=== PATIENT | male | born 1980 | race Two or more races ===

== ENCOUNTER 2020-03-07 11:59 | Inpatient (IN) | payer MEDICAID ==
[~2020-03-07] VITALS: Ht 167.6 cm; Wt 87.9 kg
[2020-03-07] MEDS ORDERED: Ketorolac 30mg Inj IV ONE (12:30)
[2020-03-07 12:53] LABS: BASOPHILS % (AUTO) 1.1 % (0.0-2.0); EOSINOPHILS % (AUTO) 0.4 % (0.0-3.0); HEMATOCRIT 42.1 % (42.0-52.0); HEMOGLOBIN 15.2 G/DL (14.2-18.0); LYMPHOCYTES % (AUTO) 17.7 % (20.0-45.0); MEAN CORPUSCULAR VOLUME 95 FL (80-99); MONOCYTES % (AUTO) 9.8 % (1.0-10.0); PLATELET COUNT 121 K/UL (150-450); RED BLOOD COUNT 4.45 M/UL (4.70-6.10); RED CELL DISTRIBUTION WIDTH 12.6 % (11.6-14.8); WHITE BLOOD COUNT 10.7 K/UL (4.8-10.8)
[2020-03-07 13:00] LABS: ANION GAP 7 mmol/L (5-15); BLOOD UREA NITROGEN 6 mg/dL (7-18); CALCIUM 7.7 MG/DL (8.5-10.1); CARBON DIOXIDE 24 MMOL/L (21-32); CHLORIDE 104 MMOL/L (98-107); CREATININE 0.8 MG/DL (0.55-1.30); POTASSIUM 3.7 MMOL/L (3.5-5.1); SODIUM 135 MMOL/L (136-145)
[2020-03-07 13:09] VITALS: BP 133/85
[2020-03-07 13:16] LABS: ALANINE AMINOTRANSFERASE 204 U/L (12-78); ALBUMIN 2.5 G/DL (3.4-5.0); ALBUMIN/GLOBULIN RATIO 0.5 (1.0-2.7); ALKALINE PHOSPHATASE 220 U/L (46-116); ASPARTATE AMINO TRANSFERASE 272 U/L (15-37); BILIRUBIN,TOTAL 1.4 MG/DL (0.2-1.0)
--- NOTE | 2020-03-07 13:16 | Diagnostic Imaging Report ---
EXAM: XR Chest, 1 View CLINICAL HISTORY: ABD PAIN TECHNIQUE: Frontal view of the chest. COMPARISON: No relevant prior studies available. FINDINGS: Lungs: Patchy bilateral airspace opacities, worse in the right lung. Pleural space: Unremarkable. No pneumothorax. Heart: Prominent cardiac silhouette. Mediastinum: Unremarkable. Bones/joints: Unremarkable. IMPRESSION: Patchy bilateral airspace opacities, worse in the right lung. Worrisome for pneumonia, consider COVID.
[2020-03-07 13:18] LABS: BILIRUBIN,DIRECT 0.5 MG/DL (0.0-0.3)
[2020-03-07] MEDS ORDERED: cefTRIAXone 1 GM in NS 55 ML IV ONE (13:30)
[2020-03-07] MEDS ORDERED: Azithromycin 500 MG in NS 275 ML IVPB ONE (13:30)
--- NOTE | 2020-03-07 13:50 | Emergency Room Report ---
History of Present Illness General Chief Complaint: Upper Respiratory Illness Source: Patient Present Illness HPI 39-year-old male presents the ED for evaluation. States that he has been coughing for the last 2 weeks. States he got tested positive for COVID a few days ago. States he has been since then having increased body aches and cough. Vomited once. Denies shortness of breath. Denies chest pain. No other aggravating relieving factors. Denies any other associated symptoms Allergies: Coded Allergies: No Known Allergies (Unverified , 03/07/20) COVID-19 Screening Contact w/high risk pt: Yes Experienced COVID-19 symptoms?: Yes COVID-19 Testing performed PSYCH THERAPIST: Yes COVID-19 Screening: Positive COVID-19 COVID-19 Testing Source: nasal Patient History Past Medical History: DM Past Surgical History: none Pertinent Family History: none Social History: Denies: smoking, alcohol use, drug use Immunizations: UTD Reviewed Nursing Documentation: PMH: Agreed; PSxH: Agreed Nursing Documentation-PMH Hx Diabetes: Yes Review of Systems All Other Systems: negative except mentioned in HPI Physical Exam Vital Signs Date Time Temp Pulse Resp B/P (MAP) Pulse Ox O2 Delivery O2 Flow Rate FiO2 03/07/20 12:13 98.2 94 18 139/70 (93) 98 Room Air Sp02 EP Interpretation: reviewed, normal General Appearance: no apparent distress, alert, GCS 15, non-toxic Head: normocephalic, atraumatic Eyes: bilateral eye normal inspection, bilateral eye PERRL ENT: hearing grossly normal, normal pharynx, no angioedema, normal voice Neck: full range of motion, supple/symm/no masses Respiratory: chest non-tender, normal breath sounds, decreased breath sounds, crackles, speaking full sentences Cardiovascular #1: regular rate, rhythm, no edema Cardiovascular #2: 2+ carotid (R), 2+ carotid (L), 2+ radial (R), 2+ radial (L), 2+ dorsalis pedis (R), 2+ dorsalis pedis (L) Gastrointestinal: normal bowel sounds, non tender, soft, non-distended, no guarding, no rebound Rectal: deferred Genitourinary: normal inspection, no CVA tenderness Musculoskeletal: back normal, normal range of motion, gait/station normal, non- tender Neurologic: alert, motor strength/tone normal, oriented x3, sensory intact, responsive, speech normal Psychiatric: judgement/insight normal, memory normal, mood/affect normal, no suicidal/homicidal ideation Reflexes: 3+ bicep (R), 3+ bicep (L), 3+ tricep (R), 3+ tricep (L), 3+ knee (R), 3+ knee (L) Skin: no rash Lymphatic: no adenopathy Medical Decision Making Diagnostic Impression: Primary Impression: Pneumonia due to COVID-19 virus ER Course Hospital Course 39-year-old male presents with cough, vomiting. Recent COVID diagnosis Differential diagnoses include: Pneumonia, CHF exacerbation, pneumothorax, fluid overload Clinical course Patient placed on stretcher. Isolation. I wore full PPE. On monitoring and evaluation advisor with stable vitals. After initial history and physical, I ordered labs, IV fluids, Labs - no leukocytosis, hemoglobin/hematocrit stable, electrolytes okay, LFTs elevated CXR -acute bilateral opacities consistent with COVID pneumonia Inflammatory markers pending. D-dimer elevated Given antibiotics. Given Lovenox. Case discussed with Dr. Brown and he agreed to the patient to his service for further care and support I feel this is a highly complex case requiring extensive working including EKG/Rhythm strip, Xray/CT/US, Blood/urine lab work, repeat exams while in ED, and administration of strong opiates/narcotics for pain control, admission to hospital or close patient follow up. Diagnosis - COVID pneumonia Patient admitted to floor in serious condition Laboratory Tests Test 03/07/20 12:11 White Blood Count 10.7 K/UL (4.8-10.8) Red Blood Count 4.45 M/UL (4.70-6.10) L Hemoglobin 15.2 G/DL (14.2-18.0) Hematocrit 42.1 % (42.0-52.0) Mean Corpuscular Volume 95 FL (80-99) Mean Corpuscular Hemoglobin 34.1 PG (27.0-31.0) H Mean Corpuscular Hemoglobin Concent 36.0 G/DL (32.0-36.0) Red Cell Distribution Width 12.6 % (11.6-14.8) Platelet Count 121 K/UL (150-450) L Mean Platelet Volume 10.5 FL (6.5-10.1) H Neutrophils (%) (Auto) 71.0 % (45.0-75.0) Lymphocytes (%) (Auto) 17.7 % (20.0-45.0) L Monocytes (%) (Auto) 9.8 % (1.0-10.0) Eosinophils (%) (Auto) 0.4 % (0.0-3.0) Basophils (%) (Auto) 1.1 % (0.0-2.0) Sodium Level 135 MMOL/L (136-145) L Potassium Level 3.7 MMOL/L (3.5-5.1) Chloride Level 104 MMOL/L (98-107) Carbon Dioxide Level 24 MMOL/L (21-32) Anion Gap 7 mmol/L (5-15) Blood Urea Nitrogen 6 mg/dL (7-18) L Creatinine 0.8 MG/DL (0.55-1.30) Estimat Glomerular Filtration Rate > 60 mL/min (>60) Glucose Level 221 MG/DL (74-106) H Calcium Level 7.7 MG/DL (8.5-10.1) L Total Bilirubin 1.4 MG/DL (0.2-1.0) H Direct Bilirubin 0.5 MG/DL (0.0-0.3) H Aspartate Amino Transf (AST/SGOT) 272 U/L (15-37) H Alanine Aminotransferase (ALT/SGPT) 204 U/L (12-78) H Alkaline Phosphatase 220 U/L (46-116) H Total Protein 7.6 G/DL (6.4-8.2) Albumin 2.5 G/DL (3.4-5.0) L Globulin 5.1 g/dL Albumin/Globulin Ratio 0.5 (1.0-2.7) L Lipase 376 U/L (73-393) Chest X-Ray Diagnostic Results Chest X-Ray Diagnostic Results : Chest X-Ray Ordered: Yes # of Views/Limited/Complete: 1 View EP Interpretation: Yes Interpretation: no effusion, no pneumothorax, other - Lateral patchy opacities Impression: Other - COVID pneumonia Electronically Signed by: Electronically signed by Carlos Whitten MD Last Vital Signs Date Time Temp Pulse Resp B/P (MAP) Pulse Ox O2 Delivery O2 Flow Rate FiO2 03/07/20 13:10 76 18 Room Air 03/07/20 13:09 98.3 133/85 96 Status: improved Disposition: ADMITTED INPATIENT Condition: Serious Scripts No Active Prescriptions or Reported Meds Referrals: NOT CHOSEN IPA/,REFERRING (PCP) Carlos Whitten MD Mar 07, 2020 13:50
[2020-03-07 14:12] LABS: INR 1.3 (0.9-1.1)
[2020-03-07] MEDS ORDERED: Enoxaparin 40mg Inj SUBQ ONE (14:30)
[2020-03-07] MEDS ORDERED: dexAMETHasone 10mg/ml Inj IV ONE (14:45)
[2020-03-07 15:10] VITALS: BP 142/88
[2020-03-07 15:27] VITALS: BP 142/89
[2020-03-07 16:50] VITALS: BP 140/90
[2020-03-07] MEDS ORDERED: Acetaminophen 500mg (ES) tab ORAL PRN ×2 (17:00)
[2020-03-07 20:00] VITALS: BP 143/79
[2020-03-08] VITALS: BP 155/94
[2020-03-08 04:00] VITALS: BP 148/82
[2020-03-08 05:18] LABS: BASOPHILS % (AUTO) 1.4 % (0.0-2.0); HEMATOCRIT 40.3 % (42.0-52.0); HEMOGLOBIN 14.3 G/DL (14.2-18.0); LYMPHOCYTES % (AUTO) 9.8 % (20.0-45.0); MEAN CORPUSCULAR VOLUME 95 FL (80-99); MONOCYTES % (AUTO) 6.7 % (1.0-10.0); NEUTROPHILS % (AUTO) 82.1 % (45.0-75.0); PLATELET COUNT 127 K/UL (150-450); RED BLOOD COUNT 4.26 M/UL (4.70-6.10); RED CELL DISTRIBUTION WIDTH 12.6 % (11.6-14.8); WHITE BLOOD COUNT 7.1 K/UL (4.8-10.8)
[2020-03-08 05:41] LABS: ALANINE AMINOTRANSFERASE 140 U/L (12-78); ALBUMIN/GLOBULIN RATIO 0.5 (1.0-2.7); ALKALINE PHOSPHATASE 174 U/L (46-116); ANION GAP 7 mmol/L (5-15); ASPARTATE AMINO TRANSFERASE 159 U/L (15-37); BILIRUBIN,TOTAL 1.2 MG/DL (0.2-1.0); BLOOD UREA NITROGEN 9 mg/dL (7-18); CALCIUM 7.8 MG/DL (8.5-10.1); CARBON DIOXIDE 24 MMOL/L (21-32); CHLORIDE 104 MMOL/L (98-107); CREATININE 0.9 MG/DL (0.55-1.30); POTASSIUM 4.2 MMOL/L (3.5-5.1); SODIUM 135 MMOL/L (136-145)
[2020-03-08 05:45] LABS: BILIRUBIN,DIRECT 0.5 MG/DL (0.0-0.3)
[2020-03-08 08:00] VITALS: BP 132/81
--- NOTE | 2020-03-08 11:15 | Consultation ---
DATE OF CONSULTATION: 03/08/2020 PULMONARY CONSULTATION HISTORY OF PRESENT ILLNESS: This is a 39-year-old male who is known to be COVID positive tested as an outpatient several days ago. He presented to the hospital with cough, body aches and shortness of breath. He also had emesis. REVIEW OF SYSTEMS: Denies any headaches, hematemesis, melena, hematochezia, night sweats, or weight loss. PAST SURGICAL HISTORY: None. PAST MEDICAL HISTORY: None. SOCIAL HISTORY: Denies alcohol or tobacco usage. PHYSICAL EXAMINATION: GENERAL: Reveals a 39-year-old male. VITAL SIGNS: Blood pressure 130/80, heart rate 74, respiratory rate 18, O2 saturation 94% on room air. HEENT: Unremarkable. CHEST: Clear breath sounds bilaterally. ABDOMEN: Soft. EXTREMITIES: There is no edema. NEUROLOGIC: Nonfocal. LABORATORY DATA: Rapid COVID testing is positive. IMAGING STUDIES: X-ray chest was obtained yesterday which shows patchy bilateral airspace disease. IMPRESSION: COVID-19 pneumonia. DISCUSSION: Agree with admission and care. The patient is a candidate for Decadron. He received a single does yesterday. We will start him on oral Decadron today. Defer choice of Remdesivir and/or steroids to ID. We will follow carefully. Stanley Giraldo M.D. DR: Lynn JOB#: [id number] CC:
[2020-03-08 11:41] VITALS: BP 139/85
--- NOTE | 2020-03-08 14:15 | Consultation ---
DATE OF CONSULTATION: 03/08/2020 INFECTIOUS DISEASES CONSULTATION CONSULTING PHYSICIAN: Austyn Shields MD PRIMARY ATTENDING PHYSICIAN: Ricki Brown MD REASON FOR CONSULTATION: COVID-19 pneumonia. HISTORY OF PRESENT ILLNESS: The patient is a 39-year-old male admitted yesterday because of coughing, body ache. Symptoms started one week ago, was diagnosed with COVID-19 as outpatient but the symptoms become worse and the patient came to the hospital. PAST MEDICAL HISTORY: Diabetes mellitus. ALLERGIES: No known drug allergies. MEDICATIONS: Dexamethasone, Zofran, sodium chloride, Tylenol. SOCIAL HISTORY: . Originally from [facility], works in restaurants. Denies drug abuse. Denies smoking. Drinks occasionally. REVIEW OF SYSTEMS: No fever. No chills. Has cough that occasionally is productive. No chest pain. No nausea. No vomiting. No shortness of breath. No dysuria. PHYSICAL EXAMINATION: VITAL SIGNS: Temperature 97.5, pulse 80, blood pressure 139/85. GENERAL APPEARANCE: Seems to be overweight. HEAD AND NECK: Garza-[place] Ii conjunctiva. HEART: Normal rate. LUNGS: Clear. ABDOMEN: Soft and nontender. EXTREMITIES: No edema. NEUROLOGIC: Awake, alert, oriented x3. LABORATORY AND DIAGNOSTIC DATA: WBC 7.1, hemoglobin 14.3, hematocrit 40.3, platelets 127. Lymphocyte count is 9.8. Sodium 135, potassium 4.2, chloride 104, bicarb 24, BUN 9, creatinine 0.9, glucose is 249. Bilirubin is 1.2, AST 159, ALT 140, alkaline phosphatase 74. Albumin is 2. COVID-19 test positive. Chest x-ray, patchy bilateral airspace opacities worse in the right lung. IMPRESSION: COVID-19 pneumonia. The patient currently is on room air and oxygen and has good O2 saturation, has lymphopenia, elevated transaminase, and diabetes mellitus. RECOMMENDATION: I agree with continuing of dexamethasone. The patient is not eligible for treatment with Remdesivir, needs better control of diabetes mellitus. At the end of my exam, I thank Dr. Brown, for involving me in the care of this patient. Austyn Shields M.D. DR: Brenda JOB#: [id number] CC:
[2020-03-08 16:00] VITALS: BP 129/87
[2020-03-08 20:22] VITALS: BP 153/86
--- NOTE | 2020-03-08 22:54 | General Progress Note ---
Subjective Allergies: Coded Allergies: No Known Allergies (Unverified , 03/07/20) Objective Last 24 Hour Vital Signs Date Time Temp Pulse Resp B/P (MAP) Pulse Ox O2 Delivery O2 Flow Rate FiO2 03/08/20 20:45 Room Air 03/08/20 20:22 96.8 61 16 153/86 (108) 95 03/08/20 16:00 97.5 71 20 129/87 (101) 94 03/08/20 11:41 97.5 80 20 139/85 (103) 94 03/08/20 09:00 Room Air 03/08/20 08:00 97.7 71 18 132/81 (98) 94 03/08/20 04:00 98.6 78 20 148/82 (104) 94 03/08/20 00:00 97.9 76 20 155/94 (114) 94 Intake and Output 03/07/20 03/08/20 19:00 07:00 # Voids 2 Laboratory Tests 03/08/20 05:00: White Blood Count 7.1, Red Blood Count 4.26L, Hemoglobin 14.3, Hematocrit 40.3L, Mean Corpuscular Volume 95, Mean Corpuscular Hemoglobin 33.6H, Mean Corpuscular Hemoglobin Concent 35.5, Red Cell Distribution Width 12.6, Platelet Count 127L, Mean Platelet Volume 12.9H, Neutrophils (%) (Auto) 82.1H, Lymphocytes (%) (Auto) 9.8L, Monocytes (%) (Auto) 6.7, Eosinophils (%) (Auto) 0.0, Basophils (%) (Auto) 1.4, Sodium Level 135L, Potassium Level 4.2, Chloride Level 104, Carbon Dioxide Level 24, Anion Gap 7, Blood Urea Nitrogen 9, Creatinine 0.9, Estimat Glomerular Filtration Rate > 60, Glucose Level 249H, Calcium Level 7.8L, Total Bilirubin 1.2H, Direct Bilirubin 0.5H, Aspartate Amino Transf (AST/SGOT) 159H, Alanine Aminotransferase (ALT/SGPT) 140H, Alkaline Phosphatase 174H, Total Protein 6.0L, Albumin 2.0L, Globulin 4.0, Albumin/Globulin Ratio 0.5L Height (Feet): 5 Height (Inches): 6.00 Weight (Pounds): 180 Assessment/Plan Assessment/Plan: Assessment - COVID PNA - Abnormal LFT, now lower, likely due to COVID Recommendations - follow LFT - check hepatitis serologies - steroids and Abx per ID Thank you MD Brooklyn Gallegos Payman MD Mar 08, 2020 22:54
--- NOTE | 2020-03-08 23:30 | History and Physical Report ---
DATE OF ADMISSION: 03/07/2020 HISTORY OF PRESENT ILLNESS: The patient denies shortness of breath. Denies chest pain. Denies nausea, vomiting, diarrhea, fever, chills, is admitted for COVID positive pneumonia and elevated LFTs. The patient feels weak. Denies nausea, vomiting, or diarrhea. PAST MEDICAL HISTORY: None other than GERD. PAST SURGICAL HISTORY: None. ALLERGIES: No known allergies. MEDICATIONS: None. FAMILY HISTORY: Noncontributory. SOCIAL HISTORY: Denies history of smoking. No history of alcohol or illicit drugs. REVIEW OF SYSTEMS: HEENT: Denies headache. RESPIRATORY: Denies shortness of breath. Does have cough. CARDIOVASCULAR: Denies chest pain or orthopnea. GASTROINTESTINAL: Denies nausea, vomiting, or diarrhea. EXTREMITIES: Denies pain. CENTRAL NERVOUS SYSTEM: Denies change in speech pattern. PHYSICAL EXAMINATION: VITAL SIGNS: Temperature is 98.6, pulse is 78, blood pressure 148/82. HEENT: PERRLA. NECK: Supple. No lymphadenopathy. CHEST: Clear to auscultation. CARDIOVASCULAR: Regular rate and rhythm. No murmurs or extra sounds. GASTROINTESTINAL: Soft, nontender, nondistended. No organomegaly. EXTREMITIES: No edema. Moves all four extremities. NEUROLOGIC: Sensory intact to light touch. Reflexes equal on both sides. Moves all four extremities. ASSESSMENT/PLAN: COVID positive pneumonia, elevated LFTs, p.r.n., oxygen if needed. I have asked Dr. Stanley Giraldo, Dr. Austyn Shields, Dr. Barahona see the patient for the above-mentioned abnormalities and antibiotics if any per Dr. Austyn Shields. Ricki Brown M.D. DR: DANIEL JOB#: [id number] CC:
[2020-03-09 03:57] VITALS: BP 136/83
[2020-03-09 07:22] LABS: ALANINE AMINOTRANSFERASE 127 U/L (12-78); ALBUMIN 2.2 G/DL (3.4-5.0); ALKALINE PHOSPHATASE 188 U/L (46-116); ASPARTATE AMINO TRANSFERASE 94 U/L (15-37); BILIRUBIN,DIRECT 0.4 MG/DL (0.0-0.3)
[2020-03-09 08:00] VITALS: BP 146/79
--- NOTE | 2020-03-09 09:51 | Pulmonology Progress Note ---
Subjective Interval Events: None new Constitutional: Reports: no symptoms HEENT: Repors: no symptoms Respiratory: Reports: no symptoms Cardiovascular: Reports: no symptoms Gastrointestinal/Abdominal: Reports: no symptoms Allergies: Coded Allergies: No Known Allergies (Unverified , 03/07/20) Objective Last 24 Hour Vital Signs Date Time Temp Pulse Resp B/P (MAP) Pulse Ox O2 Delivery O2 Flow Rate FiO2 03/09/20 03:57 97.2 73 18 136/83 (100) 96 03/08/20 20:45 Room Air 03/08/20 20:22 96.8 61 16 153/86 (108) 95 03/08/20 16:00 97.5 71 20 129/87 (101) 94 03/08/20 11:41 97.5 80 20 139/85 (103) 94 Intake and Output 03/08/20 03/09/20 19:00 07:00 Intake Total 960 ml 1140 ml Balance 960 ml 1140 ml Intake Oral 240 ml 420 ml IV Total 720 ml 720 ml # Voids 4 General Appearance: no acute distress HEENT: normocephalic Respiratory: chest wall non-tender, lungs clear Cardiovascular: normal peripheral pulses Abdomen: normal bowel sounds Microbiology Date/Time Source Procedure Growth Status 03/07/20 14:25 Nasopharynx SARS-CoV-2 RdRp Gene Assay - Final Complete 03/07/20 14:25 Blood Blood Culture - Preliminary NO GROWTH AFTER 24 HOURS Resulted 03/07/20 14:25 Blood Blood Culture - Preliminary NO GROWTH AFTER 24 HOURS Resulted Laboratory Tests 03/09/20 05:20: Hemoglobin A1c 6.6H, Total Bilirubin 1.0, Direct Bilirubin 0.4H, Aspartate Amino Transf (AST/SGOT) 94H, Alanine Aminotransferase (ALT/SGPT) 127H, Alkaline Phosphatase 188H, Total Protein 6.7, Albumin 2.2L, Hepatitis A IgM Antibody [Pending], Hepatitis B Surface Antigen [Pending], Hepatitis B Core IgM Antibody [Pending], Hepatitis C Antibody [Pending] Current Medications Medications (Trade) Dose Ordered Sig/Sharmaine Route PRN Reason Start Time Stop Time Status Last Admin Dose Admin Acetaminophen (Tylenol) 500 mg Q6H PRN ORAL For Pain 03/07/20 17:00 04/06/20 16:59 Acetaminophen (Tylenol) 500 mg Q6H PRN ORAL Temp >100.5 03/07/20 17:00 04/06/20 16:59 Dexamethasone (Decadron) 10 mg DAILY ORAL 03/08/20 11:00 04/07/20 10:59 03/09/20 08:46 Ondansetron HCl (Zofran) 4 mg Q6H PRN IVP Nausea & Vomiting 03/07/20 17:00 04/06/20 16:59 Sodium Chloride 1,000 ml @ 60 mls/hr [id number] IV 03/07/20 17:00 04/06/20 16:59 03/09/20 01:26 Assessment/Plan Assessment/Plan IMPRESSION: COVID-19 pneumonia. DISCUSSION: Continue steroids Agree with admission and care. Defer choice of Remdesivir to ID. I will follow carefully. Tayler Bernard Omar Syed MD Mar 09, 2020 09:51
[2020-03-09 11:52] VITALS: BP 140/81
--- NOTE | 2020-03-09 12:17 | Infectious Diseases Prog Note ---
Assessment/Plan Assessment/Plan IMPRESSION: COVID-19 pneumonia. Lymphopenia, Elevated transaminase, Diabetes mellitus. RECOMMENDATION: I agree with discharge without antibiotic Subjective ROS Limited/Unobtainable: Yes Constitutional: Reports: no symptoms, other - feels better Respiratory: Reports: dry cough; Denies: shortness of breath Gastrointestinal/Abdominal: Reports: no symptoms Genitourinary: Reports: no symptoms Allergies: Coded Allergies: No Known Allergies (Unverified , 03/07/20) Objective Last 24 Hour Vital Signs Date Time Temp Pulse Resp B/P (MAP) Pulse Ox O2 Delivery O2 Flow Rate FiO2 03/09/20 11:52 98.6 65 18 140/81 (100) 96 03/09/20 09:00 Room Air 03/09/20 08:00 97.3 64 18 146/79 (101) 95 03/09/20 03:57 97.2 73 18 136/83 (100) 96 03/08/20 20:45 Room Air 03/08/20 20:22 96.8 61 16 153/86 (108) 95 03/08/20 16:00 97.5 71 20 129/87 (101) 94 Height (Feet): 5 Height (Inches): 6.00 Weight (Pounds): 180 General Appearance: no acute distress HEENT: mucous membranes moist Respiratory/Chest: lungs clear Cardiovascular: normal rate Abdomen: soft, non tender Extremities: no edema Neurologic/Psychiatric: alert, oriented x 3, responsive Microbiology Date/Time Source Procedure Growth Status 03/07/20 14:25 Nasopharynx SARS-CoV-2 RdRp Gene Assay - Final Complete 03/07/20 14:25 Blood Blood Culture - Preliminary NO GROWTH AFTER 24 HOURS Resulted 03/07/20 14:25 Blood Blood Culture - Preliminary NO GROWTH AFTER 24 HOURS Resulted Laboratory Tests Test 03/09/20 05:20 Hemoglobin A1c 6.6 % (4.3-6.0) H Total Bilirubin 1.0 MG/DL (0.2-1.0) Direct Bilirubin 0.4 MG/DL (0.0-0.3) H Aspartate Amino Transf (AST/SGOT) 94 U/L (15-37) H Alanine Aminotransferase (ALT/SGPT) 127 U/L (12-78) H Alkaline Phosphatase 188 U/L (46-116) H Total Protein 6.7 G/DL (6.4-8.2) Albumin 2.2 G/DL (3.4-5.0) L Hepatitis A IgM Antibody Pending Hepatitis B Surface Antigen Pending Hepatitis B Core IgM Antibody Pending Hepatitis C Antibody Pending Current Medications Medications (Trade) Dose Ordered Sig/Sharmaine Route PRN Reason Start Time Stop Time Status Last Admin Dose Admin Acetaminophen (Tylenol) 500 mg Q6H PRN ORAL For Pain 03/07/20 17:00 04/06/20 16:59 Acetaminophen (Tylenol) 500 mg Q6H PRN ORAL Temp >100.5 03/07/20 17:00 04/06/20 16:59 Dexamethasone (Decadron) 10 mg DAILY ORAL 03/08/20 11:00 04/07/20 10:59 03/09/20 08:46 Ondansetron HCl (Zofran) 4 mg Q6H PRN IVP Nausea & Vomiting 03/07/20 17:00 04/06/20 16:59 Sodium Chloride 1,000 ml @ 60 mls/hr [id number] IV 03/07/20 17:00 04/06/20 16:59 03/09/20 01:26 Austyn Shields MD Mar 09, 2020 12:17
--- NOTE | 2020-03-09 15:25 | General Progress Note ---
Subjective ROS Limited/Unobtainable: Yes Allergies: Coded Allergies: No Known Allergies (Unverified , 03/07/20) Objective Last 24 Hour Vital Signs Date Time Temp Pulse Resp B/P (MAP) Pulse Ox O2 Delivery O2 Flow Rate FiO2 03/09/20 11:52 98.6 65 18 140/81 (100) 96 03/09/20 09:00 Room Air 03/09/20 08:00 97.3 64 18 146/79 (101) 95 03/09/20 03:57 97.2 73 18 136/83 (100) 96 03/08/20 20:45 Room Air 03/08/20 20:22 96.8 61 16 153/86 (108) 95 03/08/20 16:00 97.5 71 20 129/87 (101) 94 Intake and Output 03/08/20 03/09/20 19:00 07:00 Intake Total 960 ml 1140 ml Balance 960 ml 1140 ml Intake Oral 240 ml 420 ml IV Total 720 ml 720 ml # Voids 4 Laboratory Tests 03/09/20 05:20: Hemoglobin A1c 6.6H, Total Bilirubin 1.0, Direct Bilirubin 0.4H, Aspartate Amino Transf (AST/SGOT) 94H, Alanine Aminotransferase (ALT/SGPT) 127H, Alkaline Phosphatase 188H, Total Protein 6.7, Albumin 2.2L, Hepatitis A IgM Antibody [Pending], Hepatitis B Surface Antigen [Pending], Hepatitis B Core IgM Antibody [Pending], Hepatitis C Antibody [Pending] Height (Feet): 5 Height (Inches): 6.00 Weight (Pounds): 180 Assessment/Plan Problem List: (1) Pneumonia due to COVID-19 virus ICD Codes: U07.1 - COVID-19; J12.89 - Other viral pneumonia SNOMED: [id number] (2) Pneumonia ICD Codes: J18.9 - Pneumonia, unspecified organism SNOMED: 305634014 (3) COVID-19 ICD Codes: U07.1 - COVID-19 SNOMED: 561663288 Status: stable Assessment/Plan: afebrile nac covid pna transfer to snf needs quarrantive fro [address] lyle agrees with snf Ricki Brown MD Mar 09, 2020 15:25
--- NOTE | 2020-03-09 15:42 | Diagnostic Imaging Report ---
ABDOMINAL ULTRASOUND - COMPLETE INDICATION: Abdominal pain. TECHNIQUE: Multiplanar ultrasound examination of the abdomen with greyscale and doppler imaging. COMPARISON: None FINDINGS: Liver: The liver is normal in size and demonstrates diffusely increased echogenicity. No focal abnormalities are noted. Gallbladder: The gallbladder is contracted, limiting evaluation. There is no sonographic Anderson sign. Common bile duct: Normal in size. Pancreas: The visualized portion of pancreas is normal in echogenicity. There are no masses. Kidneys: The kidneys are normal in size and echogenicity. There is no hydronephrosis. Spleen: The spleen is normal in size and echogenicity. Aorta: The aorta is normal in caliber. IMPRESSION: 1. Hepatic steatosis. 2. Limited evaluation of the gallbladder due to contraction.
[2020-03-09 16:00] VITALS: BP 146/86
--- NOTE | 2020-03-09 22:15 | Consultation ---
DATE OF CONSULTATION: 03/08/2020 GASTROENTEROLOGY CONSULTATION REPORT CONSULTING PHYSICIAN: Markie Barahona MD CHIEF COMPLAINT: I was asked to see this patient for abnormal liver tests. HISTORY OF PRESENT ILLNESS: Patient is a 39-year-old man who is admitted with COVID positive pneumonia. He is in respiratory isolation. His liver tests have been elevated. He denies any previous history of liver disease or alcoholism or hepatitis. He has been feeling better and is coughing, but is not very short of breath. He also had some prior to admission, which is resolved. PAST MEDICAL HISTORY: None. FAMILY HISTORY: Noncontributory. PAST SURGICAL HISTORY: None. SOCIAL HISTORY: Patient denies smoking or drinking. PHYSICAL EXAMINATION: GENERAL: Well-developed, well-nourished man, in no distress. HEENT: Normocephalic and atraumatic. NECK: Supple. CHEST: Reveals scattered rhonchi. CARDIOVASCULAR: Revealed a regular rate. ABDOMEN: Soft, nontender. EXTREMITIES: Revealed no edema. LABORATORY DATA: Noted. ASSESSMENT: This patient presents with COVID pneumonia and abnormal liver tests. The value is typically found in patients with this type of viral infection and the process resolves uneventfully with conservative management. Patient can undergo hepatitis serology testing as well as imaging studies of his abdomen. However, at this point, he is asymptomatic and his liver tests are likely to resolve and therefore he should be followed conservatively. RECOMMENDATIONS: 1. Follow liver tests until resolution. 2. Check hepatitis serologies. 3. Liver imaging with ultrasound. Thank you for asking me to participate in the care of this patient. Markie Barahona M.D. DR: ALEXANDER JOB#: [id number] CC:
--- NOTE | 2020-03-11 09:31 | Discharge Summary ---
Discharge Summary Discharge Summary _ DATE OF ADMISSION: 03/07/2020 DATE OF DISCHARGE: 03/09/[address] Brown REASON FOR ADMISSION: 39 years old male with past medical history of diabetes mellitus, presented with chief complaint of cough for the last 2 weeks. Per patient, he tested positive for Covid 19 few days ago. Patient reported generalized body aches and cough. Patient reported non bloody emesis x1. He denied chest pain and shortness of breath. Upon evaluation vital signs were stable. Pulse oximetry was stable on room air. Rapid COVID-19 in emergency department was positive. Chest x-ray revealed patchy bilateral airspace opacity, worse in the right lung. Laboratory work-up revealed no leukocytosis , stable hemoglobin, hematocrit and platelet count. Ferritin 420, LDH 699, CRP 2.5 , D-dimer 1.26. Stable electrolytes and renal parameters. Total bilirubin 1.4, direct bilirubin 0.5. AST 272, ALT 204. In emergency department patient received Lovenox, steroid ,empiric antibiotic and admitted for further management. Patient also received Pepcid and Zofran and admitted for further management. CONSULTANTS: pulmonary Dr. Giraldo ID specialist Dr. Austyn Shields GI specialist Dr. Barahona [facility] COURSE: Patient admitted to medical surgical floor isolation room. Supplemental oxygen provided and titrated to keep pulse oximetry above 92%. Pulse oximetry remained stable on room air. Remdesivir was not indicated at this time. Patient was continued with steroids and antibiotics. Blood sugar was closely monitored, remained stable. LFT were closely monitored. Abdominal ultrasound revealed hepatic steatosis. Hepatitis panel was negative. Per GI specialist transaminitis was most likely due to COVID, probably partly to hepatic steatosis as well. LFT were trending down : AST from initial 272 down to 94, ALT from initial 2 4 down to 127, total bilirubin down to normal 1.0 . Supportive care provided. Patient clinically stabilized and was ready for discharge. patietn required isolation upon discharge, not available at home. Patient was accepted to intermediate facility for a short term to complete isolation. FINAL DIAGNOSES: COVID-19 pneumonia Transaminitis , possibly due to Covid Hepatic steatosis Lymphopenia Diabetes mellitus DISCHARGE MEDICATIONS: See Medication Reconciliation list. DISCHARGE INSTRUCTIONS: Patient was discharged to the intermediate facility. Follow up with medical doctor at the facility. I have been assigned to dictate discharge summary for this account. I was not involved in the patient's management. Hilaria Crawford NP Mar 11, 2020 09:31
== END 2020-03-09 18:56 | DRG 137 ==
LOC: EMR 13:00 → 4E 13:57 → EDBEDREQ 14:28
DX: U07.1 COVID-19 (principal); J12.89 Other viral pneumonia; K21.9 Gastro-esophageal reflux disease without esophagitis; E11.9 Type 2 diabetes mellitus without complications; R74.01 Elevation of levels of liver transaminase levels; K76.0 Fatty (change of) liver, not elsewhere classified; D72.810 Lymphocytopenia
CPT/HCPCS: 36415; 71045; 76700; 80053; 80076; 82248; 82728; 83036; 83605; 83615; 83690; 85025; 85379; 85610; 85730; 86140; 86705; 86709; 86803; 87040; 87340; 96361; 96365; 96368; 96372; 96375; 99285; J2405; J7030; U0002

== ENCOUNTER 2020-03-19 20:38 | Inpatient (IN) | payer MEDICAID ==
[~2020-03-19] VITALS: Ht 165.1 cm; Wt 89.0 kg
[2020-03-19 20:45] VITALS: BP 140/95
--- NOTE | 2020-03-19 20:45 | NUR ---
ED Nurse Note: Pt [facility] from [facility] d/t abdominal pain and abdominal bloating x2 days. Pt denies n/v/d, denies fever, and chills. Pt reports sweating from the pain. Pt states recent COVID diagnosis requiring hospitalization and has been discharged to [facility] for further recovery. Pt is AAOx4, breathing even and unlabored. No acute distress noted, vitals signs stable as documented.
[2020-03-19] MEDS ORDERED: ZOFRAN4 M1 ORAL (20:55)
[2020-03-19] MEDS ORDERED: ACETAMINOPHEN325 M1 ORAL (20:55)
[2020-03-19] MEDS ORDERED: ZINC SULFATE220 M2 ORAL (20:55)
[2020-03-19] MEDS ORDERED: FLEET ENEMA133 ML RECTAL (20:55)
[2020-03-19] MEDS ORDERED: CRANBERRY400 M1 PO (20:55)
[2020-03-19] MEDS ORDERED: DEXAMETHASONE MC (20:55)
[2020-03-19] MEDS ORDERED: MULTIVITAMINS1 EAC8 ORAL (20:55)
[2020-03-19] MEDS ORDERED: MOM30 ML ORAL (20:55)
[2020-03-19] MEDS ORDERED: DULCOLAX10 MG RC (20:55)
[2020-03-19] MEDS ORDERED: VITAMIN C500 M1 ORAL (20:55)
[2020-03-19] MEDS ORDERED: Omnipaque-300 100ml vial INJ PRN (21:00)
--- NOTE | 2020-03-19 21:04 | NUR ---
ED Nurse Note: blood and COVID swab sent to lab
--- NOTE | 2020-03-19 21:11 | NUR ---
ED Nurse Note: urine sent to lab
--- NOTE | 2020-03-19 21:16 | NUR ---
ED Nurse Note: electronic warfare technician at bedside performing cxr
--- NOTE | 2020-03-19 21:41 | Diagnostic Imaging Report ---
EXAM: XR Chest, 1 View CLINICAL HISTORY: ABD PAIN TECHNIQUE: Frontal view of the chest. COMPARISON: Chest radiograph dated 03/07/20. FINDINGS: Lungs: There is interval improvement with decrease in the extent of bilateral reticular airspace opacities. Pleural space: Unremarkable. No pneumothorax. Heart: Unremarkable. No cardiomegaly. Mediastinum: Unremarkable. Bones/joints: Unremarkable. IMPRESSION: Interval improvement with decrease in bilateral pneumonia.
[2020-03-19 21:42] LABS: APPEARANCE,URINE CLEAR; BILIRUBIN, URINE NEGATIVE (NEGATIVE); COLOR,URINE PALE YELLOW; GLUCOSE, URINE (UA) 4+ (NEGATIVE); KETONES,URINE NEGATIVE (NEGATIVE); LEUKOCYTE ESTERASE ,URINE NEGATIVE (NEGATIVE); NITRITE,URINE NEGATIVE (NEGATIVE); PH,URINE 6.5 (4.5-8.0); PROTEIN,URINE NEGATIVE (NEGATIVE); UROBILINOGEN,URINE NORMAL MG/DL (0.0-1.0)
[2020-03-19 21:46] LABS: HEMATOCRIT 45.9 % (42.0-52.0); MEAN CORPUSCULAR VOLUME 107 FL (80-99); PLATELET COUNT 83 K/UL (150-450); RED BLOOD COUNT 4.28 M/UL (4.70-6.10); RED CELL DISTRIBUTION WIDTH 13.1 % (11.6-14.8); WHITE BLOOD COUNT 12.9 K/UL (4.8-10.8)
[2020-03-19 21:47] LABS: INR 1.2 (0.9-1.1)
[2020-03-19 21:49] LABS: ALANINE AMINOTRANSFERASE 125 U/L (12-78); ALBUMIN 2.5 G/DL (3.4-5.0); ALBUMIN/GLOBULIN RATIO 0.8 (1.0-2.7); ALKALINE PHOSPHATASE 296 U/L (46-116); ANION GAP 4 mmol/L (5-15); ASPARTATE AMINO TRANSFERASE 77 U/L (15-37); BILIRUBIN,TOTAL 0.7 MG/DL (0.2-1.0); BLOOD UREA NITROGEN 11 mg/dL (7-18); CALCIUM 7.9 MG/DL (8.5-10.1); CARBON DIOXIDE 30 MMOL/L (21-32); CHLORIDE 101 MMOL/L (98-107); POTASSIUM 3.9 MMOL/L (3.5-5.1); SODIUM 134 MMOL/L (136-145)
--- NOTE | 2020-03-19 21:55 | Emergency Room Report ---
History of Present Illness General Chief Complaint: Abdominal Pain Source: Patient (Carlos Whitten MD) Present Illness HPI 39-year-old male presents to ED for evaluation. Brought in for blood in stool. Pain is dull, 7 out of 10, nonradiating. States his abdomen is distended. Coming from group home facility. Patient was recently admitted here for Covid pneumonia and subsequently discharged to facility. Patient denies any fevers or chills. Denies cough. No other aggravating relieving factors. 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 COVID-19 Screening: Positive COVID-19 COVID-19 Testing Source: bone worker (Carlos Whitten MD) Patient History Past Medical History: DM Past Surgical History: none Pertinent Family History: none Social History: Denies: smoking, alcohol use, drug use Immunizations: UTD Reviewed Nursing Documentation: PMH: Agreed; PSxH: Agreed (Carlos Whitten MD) Nursing Documentation-PMH Hx Cardiac Problems: No Hx Diabetes: Yes Hx Cancer: No Hx Gastrointestinal Problems: No - GERD Hx Neurological Problems: No (Carlos Whitten MD) Review of Systems All Other Systems: negative except mentioned in HPI (Carlos Whitten MD) Physical Exam Vital Signs Date Time Temp Pulse Resp B/P (MAP) Pulse Ox O2 Delivery O2 Flow Rate FiO2 03/19/20 20:39 92 20 138/100 (113) 95 Room Air 03/19/20 20:45 98.1 Sp02 EP Interpretation: reviewed, normal General Appearance: no apparent distress, alert, GCS 15, non-toxic Head: normocephalic, atraumatic Eyes: bilateral eye normal inspection, bilateral eye PERRL ENT: hearing grossly normal, normal pharynx, no angioedema, normal voice Neck: full range of motion, supple/symm/no masses Respiratory: chest non-tender, lungs clear, normal breath sounds, speaking full sentences Cardiovascular #1: regular rate, rhythm, no edema Cardiovascular #2: 2+ carotid (R), 2+ carotid (L), 2+ radial (R), 2+ radial (L), 2+ dorsalis pedis (R), 2+ dorsalis pedis (L) Gastrointestinal: normal bowel sounds, no guarding, no rebound, distended Rectal: deferred Genitourinary: normal inspection, no CVA tenderness Musculoskeletal: back normal, normal range of motion, gait/station normal, non- tender Neurologic: alert, motor strength/tone normal, oriented x3, sensory intact, responsive, speech normal Psychiatric: judgement/insight normal, memory normal, mood/affect normal, no suicidal/homicidal ideation Reflexes: 3+ bicep (R), 3+ bicep (L), 3+ tricep (R), 3+ tricep (L), 3+ knee (R), 3+ knee (L) Skin: no rash Lymphatic: no adenopathy (Carlos Whitten MD) Medical Decision Making Diagnostic Impression: Primary Impression: LGI bleed Additional Impressions: COVID-19 Hyperglycemia Ascites due to alcoholic cirrhosis ER Course This patient was signed out to me. He was admitted before for Covid pneumonia. He is currently in a residential. He presents with abdominal distention. LFTs are elevated. CT scan was pending. CT scan showed ascites and cirrhosis. No other acute finding. No obstruction. Patient has been admitted to the hospital. (Simon Abdi MD) Chest X-Ray Diagnostic Results Chest X-Ray Diagnostic Results : Chest X-Ray Ordered: Yes # of Views/Limited/Complete: 1 View Indication: Other Interpretation: no effusion, no pneumothorax, other - resolving bilateral pneumonia Impression: Other - Resolving bilateral pneumonia Electronically Signed by: Electronically signed by Carlos Whitten MD (Carlos Whitten MD) CT/MRI/US Diagnostic Results CT/MRI/US Diagnostic Results : Imaging Test Ordered: CT abdomen and pelvis Impression Read by radiologist. Moderate abdominal and pelvic ascites. Cirrhosis of the liver. 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 (Simon Abdi MD) Last Vital Signs Date Time Temp Pulse Resp B/P (MAP) Pulse Ox O2 Delivery O2 Flow Rate FiO2 03/19/20 20:45 92 20 Room Air 03/19/20 20:45 98.1 140/95 95 Status: improved (Carlos Whitten MD) Status: improved (Simon Abdi MD) Disposition: ADMITTED INPATIENT Condition: Serious Referrals: Ricki Brown MD (PCP) Carlos Whitten MD Mar 19, 2020 21:55 Simon Abdi MD Mar 19, 2020 23:28
[2020-03-19] MEDS ORDERED: Insulin Human Regular 100units/ml 3ml IV ONE (22:00)
--- NOTE | 2020-03-19 22:20 | NUR ---
ED Nurse Note: Spoke with pt's brother, consent given by patient. Family would like MD to call when admitted for plan of care. Vin Sandoval (brother) .
--- NOTE | 2020-03-19 22:23 | NUR ---
ED Nurse Note: VRE, VRE, and MRSA swabs sent to lab
--- NOTE | 2020-03-19 22:23 | NUR ---
ED Nurse Note: pt went down to CT via w/c accompanied by CT staff, pt in stable condition.
--- NOTE | 2020-03-19 22:31 | NUR ---
ED Nurse Note: pt back from CT in stable condition.
[2020-03-19 22:56] VITALS: BP 134/90
--- NOTE | 2020-03-19 22:57 | NUR ---
ED Nurse Note: Report given to LUCIEN Ny in [facility]. pt's brother's contact info given.
--- NOTE | 2020-03-19 23:13 | NUR ---
Daniela mao in EDM - 03/19/20 at 2313 by JOB ED Note: pt transfered to [facility] [id number]
--- NOTE | 2020-03-19 23:13 | NUR ---
ED Nurse Note: pt transfered to [facility] [id number] accompanied by EMT staff, pt in stable condition. Admission packet and all belongings taken with patient.
--- NOTE | 2020-03-19 23:22 | Diagnostic Imaging Report ---
EXAM: CT Abdomen and Pelvis With Intravenous Contrast CLINICAL HISTORY: ABD DIST TECHNIQUE: Axial computed tomography images of the abdomen and pelvis with intravenous contrast. CTDI is 8 mGy and DLP is 503 mGy-cm. One or more of the following dose reduction techniques were used: automated exposure control, adjustment of the mA and/or kV according to patient size, use of iterative reconstruction technique. COMPARISON: Correlation with ultrasound of the abdomen dated 03/09/20. FINDINGS: Lung bases: There is bibasilar subsegmental atelectasis in the lungs. ABDOMEN: Liver: There is cirrhosis of the liver with nodularity of the liver surface. No suspicious liver lesion is seen. Gallbladder and bile ducts: The gallbladder is partially contracted. No calcified stones. No ductal dilation. Pancreas: Unremarkable. No mass. No ductal dilation. Spleen: Unremarkable. No splenomegaly. Adrenals: Unremarkable. No mass. Kidneys and ureters: Unremarkable. No solid mass. No hydronephrosis. Stomach and bowel: Unremarkable. No obstruction. No mucosal thickening. PELVIS: Appendix: No findings to suggest acute appendicitis. Bladder: Unremarkable. No mass. Reproductive: Unremarkable as visualized. ABDOMEN and PELVIS: Intraperitoneal space: There is moderate abdominal and pelvic ascites. No free air. Bones/joints: No acute fracture. No dislocation. Soft tissues: Unremarkable. Vasculature: There are multiple varices at the gastrohepatic ligament region. No abdominal aortic aneurysm. Lymph nodes: Unremarkable. No enlarged lymph nodes. IMPRESSION: 1. There is moderate abdominal and pelvic ascites. 2. Cirrhosis of the liver. 3. 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 4. No other acute findings.
--- NOTE | 2020-03-19 23:40 | NUR ---
NURSE NOTES: Received admission orders from Dr. Brown, All orders executed as indicated. The patient remained calm and relaxed.
--- NOTE | 2020-03-19 23:44 | NUR ---
NURSE NOTES: Received patient from Arminda MCGRAW at ER. The patient is alert and oriented x4 and does not seem to be in any acute distress at this time. He is on room air with Resp even and unlabored.The patient was able to ambulate to the restroom with a steady gait. On skin assessment, the skin is warm and soft with active bowel sounds noted in all four quadrant. He has a Right AC 20g that is patent and asymptomatic. The bed in low and locked level with side rails up x2 and call light within easy reach. Will followup with Dr. Brown for admission order as indicated.
[2020-03-20] VITALS: BP 136/71
[2020-03-20 04:00] VITALS: BP 133/68
[2020-03-20] MEDS: NovoLOG Insulin Flexpen SUBQ SCH ×5 (06:48→21:09)
[2020-03-20 07:08] LABS: HEMATOCRIT 39.9 % (42.0-52.0); HEMOGLOBIN 13.3 G/DL (14.2-18.0); MEAN CORPUSCULAR VOLUME 104 FL (80-99); PLATELET COUNT 83 K/UL (150-450); RED BLOOD COUNT 3.84 M/UL (4.70-6.10); RED CELL DISTRIBUTION WIDTH 12.9 % (11.6-14.8)
--- NOTE | 2020-03-20 07:15 | NUR ---
NURSE HAND-OFF: Important Events on Shift:elevated blood sugar. Patient Status: Diet: Pending Orders: Pending Results/Labs: Pending MD notification: Latest Vital Signs: Temperature 98.4 , Pulse 78 , B/P 133 /68 , Respiratory Rate 17 , O2 SAT 99 , Room Air, O2 Flow Rate . Vital Sign Comment: Latest Gutierrez Fall Score: 35 Fall Risk: Medium Risk Safety Measures: Call light Within Reach, Bed Alarm Zone 1, Side Rails Side Rails x1, Bed position Low and Locked. Fall Precautions: Yellow Socks Yellow Gown Patient Fall Education Report given to .
[2020-03-20 07:21] LABS: ALANINE AMINOTRANSFERASE 102 U/L (12-78); ALBUMIN 2.1 G/DL (3.4-5.0); ALBUMIN/GLOBULIN RATIO 0.7 (1.0-2.7); ALKALINE PHOSPHATASE 236 U/L (46-116); ANION GAP 5 mmol/L (5-15); ASPARTATE AMINO TRANSFERASE 66 U/L (15-37); BILIRUBIN,TOTAL 0.6 MG/DL (0.2-1.0); BLOOD UREA NITROGEN 9 mg/dL (7-18); CALCIUM 7.8 MG/DL (8.5-10.1); CARBON DIOXIDE 28 MMOL/L (21-32); CHLORIDE 106 MMOL/L (98-107); CREATININE 0.8 MG/DL (0.55-1.30); POTASSIUM 3.7 MMOL/L (3.5-5.1); SODIUM 139 MMOL/L (136-145)
[2020-03-20 08:00] VITALS: BP 147/98
--- NOTE | 2020-03-20 09:12 | General Progress Note ---
Subjective ROS Limited/Unobtainable: Yes Allergies: Coded Allergies: No Known Allergies (Unverified , 03/07/20) Objective Last 24 Hour Vital Signs Date Time Temp Pulse Resp B/P (MAP) Pulse Ox O2 Delivery O2 Flow Rate FiO2 03/20/20 08:00 98.2 78 18 147/98 (114) 97 03/20/20 04:00 98.4 78 17 133/68 (89) 99 03/20/20 00:00 98.7 75 17 136/71 (92) 97 03/19/20 23:37 Room Air 03/19/20 23:13 97.7 82 16 133/87 100 Room Air 03/19/20 22:56 97.8 76 16 134/90 98 Room Air 03/19/20 20:45 92 20 Room Air 03/19/20 20:45 98.1 87 20 140/95 95 Room Air 03/19/20 20:39 92 20 138/100 (113) 95 Room Air Intake and Output 03/19/20 03/20/20 19:00 07:00 Intake Total 3689 ml Balance 3689 ml Intake Oral 380 ml IV Total 3309 ml # Voids 1 Laboratory Tests 03/19/20 20:15: White Blood Count 12.9H, Red Blood Count 4.28L, Hemoglobin 15.0, Hematocrit 45.9, Mean Corpuscular Volume 107H, Mean Corpuscular Hemoglobin 35.0H, Mean Corpuscular Hemoglobin Concent 32.7, Red Cell Distribution Width 13.1, Platelet Count 83L, Mean Platelet Volume 14.2H, Neutrophils (%) (Auto) , Lymphocytes (%) (Auto) , Monocytes (%) (Auto) , Eosinophils (%) (Auto) , Basophils (%) (Auto) , Differential Total Cells Counted 100, Neutrophils % (Manual) 73, Lymphocytes % (Manual) 18L, Monocytes % (Manual) 6, Eosinophils % (Manual) 3, Basophils % (Manual) 0, Band Neutrophils 0, Platelet Estimate DecreasedL, Platelet Morphology Normal, Macrocytosis 1+, Prothrombin Time 12.7H, Prothromb Time International Ratio 1.2H, Activated Partial Thromboplast Time 26, Sodium Level 134L, Potassium Level 3.9, Chloride Level 101, Carbon Dioxide Level 30, Anion Gap 4L, Blood Urea Nitrogen 11, Creatinine 1.0, Estimat Glomerular Filtration Rate > 60, Glucose Level 504*H, Calcium Level 7.9L, Total Bilirubin 0.7, Aspartate Amino Transf (AST/SGOT) 77H, Alanine Aminotransferase (ALT/SGPT) 125H, Alkaline Phosphatase 296H, Total Protein 5.8L, Albumin 2.5L, Globulin 3.3, Albumin/Globulin Ratio 0.8L, Lipase 368 03/19/20 20:55: Urine Color Pale yellow, Urine Appearance Clear, Urine pH 6.5, Urine Specific [place] 1.005, Urine Protein Negative, Urine Glucose (UA) 4+H, Urine Ketones Negative, Urine Blood Negative, Urine Nitrite Negative, Urine Bilirubin Negative, Urine Urobilinogen Normal, Urine Leukocyte Esterase Negative 03/19/20 22:52: POC Whole Blood Glucose 338H 03/20/20 05:26: POC Whole Blood Glucose 259H 03/20/20 06:00: White Blood Count 13.0H, Red Blood Count 3.84L, Hemoglobin 13.3L, Hematocrit 39.9L, Mean Corpuscular Volume 104H, Mean Corpuscular Hemoglobin 34.6H, Mean Corpuscular Hemoglobin Concent 33.3, Red Cell Distribution Width 12.9, Platelet Count 83L, Mean Platelet Volume 14.5H, Neutrophils (%) (Auto) , Lymphocytes (%) (Auto) , Monocytes (%) (Auto) , Eosinophils (%) (Auto) , Basophils (%) (Auto) , Differential Total Cells Counted 100, Neutrophils % (Manual) 71, Lymphocytes % (Manual) 28, Monocytes % (Manual) 1, Eosinophils % (Manual) 0, Basophils % (Manual) 0, Band Neutrophils 0, Platelet Estimate DecreasedL, Platelet Morphology Normal, Macrocytosis 1+, Sodium Level 139, Potassium Level 3.7, Chloride Level 106, Carbon Dioxide Level 28, Anion Gap 5, Blood Urea Nitrogen 9, Creatinine 0.8, Estimat Glomerular Filtration Rate > 60, Glucose Level 264#H, Hemoglobin A1c 8.9H, Calcium Level 7.8L, Total Bilirubin 0.6, Aspartate Amino Transf (AST/SGOT) 66H, Alanine Aminotransferase (ALT/SGPT) 102H, Alkaline Phosphatase 236H, Total Protein 5.1L, Albumin 2.1L, Globulin 3.0, Albumin/Globulin Ratio 0.7L Height (Feet): 5 Height (Inches): 5.00 Weight (Pounds): 250 General Appearance: alert EENT: normal ENT inspection Neck: supple Cardiovascular: normal rate Respiratory/Chest: decreased breath sounds Abdomen: hypoactive bowel sounds, tender Extremities: non-tender Assessment/Plan Assessment/Plan: cirrhosis ascites portal HTN DM elevated LFTS Covid + hepatitis panel lasix and aldactone paracentesis to r/o SBP repeat labs ammonia level Lul Deluna MD Mar 20, 2020 09:12
--- NOTE | 2020-03-20 09:22 | NUR ---
NURSE NOTES: PT AXOX4, CALM, RESTING IN BED. PT DENIES HAVING FEVER, CHILLS, DIFFICULTY BREATHING. PT STATES HE HAS PAIN MINIMAL PAIN OF LOWER ABDOMEN. ABDOMEN IS SOFT AND ROUND, NON-TENDER TO TOUCH. PT STATES HE IS HAVING REGULAR BOWEL MOVEMENTS, NO DIFFICULTY URINATING. BED IN LOWEST POSITION WITH BEDSIDE RAILS X2 RAISED. CALL LIGHT WITHIN REACH. WILL CONTINUE TO MONITOR.
[2020-03-20] MEDS: Spironolactone 50mg tab ORAL SCH (10:45)
--- NOTE | 2020-03-20 10:45 | History and Physical Report ---
DATE OF ADMISSION: 03/19/[address] Carlson for Dr. Brown TIME SEEN: 10 a.m. CONSULTANTS: 1. Wellington Foster MD. 2. Markie Barahona MD. CHIEF COMPLAINT: Abdominal pain, diabetes, hyperglycemia, COVID. BRIEF HISTORY: The patient is a 39-year-old male presented to [facility] with above-mentioned diagnoses, admitted to medical floor. Currently, sleeping in bed, not talking much, unable to give further history. PAST MEDICAL HISTORY: From chart includes lower GI bleed, ascites due to alcoholic cirrhosis, pneumonia due to COVID. PAST SURGICAL HISTORY: Unknown. MEDICATIONS: furosemide, insulin, morphine. ALLERGIES: Denies. SOCIAL HISTORY: Unable to obtain due to the patient's condition. PHYSICAL EXAMINATION: GENERAL: Calm, sleeping in bed. VITAL SIGNS: Temperature is 98 degrees, pulse 78, respiratory rate 18, blood pressure 147/98. HEENT: Normocephalic and atraumatic. NECK: Trachea is midline. CARDIOVASCULAR: No peripheral edema. LUNGS: Breathing comfortably on room air. ABDOMEN: No apparent wounds. EXTREMITIES: No cyanosis or clubbing. LABORATORY AND DIAGNOSTIC DATA: White count 13, hemoglobin and hematocrit 13/39, platelets is 83. BMP shows a glucose 264. Albumin 2.1. INR is 1.2. Urinalysis show 4+ glucose. ASSESSMENT: 1. Abdominal pain. 2. Alcoholic cirrhosis. 3. Ascites. 4. Diabetes, hyperglycemia. 5. Elevated LFT. 6. Thrombocytopenia. 7. Lower GI bleed. 8. Malnutrition. 9. Possible COVID infection. PLAN: 1. O2, pulmonary treatment. 2. Antibiotics per Infectious Disease. 3. Blood pressure, blood sugar, pain control. 4. GI followup. 5. Nephrology followup. 6. Hematology/ ID followup as well. Sebastián Carlson D.O. DR: Bolivar JOB#: [id number] CC:
--- NOTE | 2020-03-20 11:00 | Consultation ---
History of Present Illness General Date patient seen: Mar 20, 2020 Chief Complaint: Abdominal Pain Referring physician: Aldo Reason for Consultation: COVID 19 Present Illness HPI Mr. Banuelos is a 39 yo male with with PMHx of DM and COVID 19 Dx 03/08/20 who presented to the ED on 03/19/20 with blood in his stool and abdominal pain. He denies SOB, N,V,D, SOB and cough. His CXR shows improved B/L infiltrates. CT scan x showed Livers cirrhosis and ascites. The patients abdominal pain has improved and he is no on abx. Cx pending. He has a mild leukocytosis and no fever. He is on RA. ID was consulted for abd pain PMHx COVID 19 DM SocHx Denies T/D Social EtOH FamHx Not contributory Allergies: Coded Allergies: No Known Allergies (Unverified , 03/07/20) Medication History Scheduled Ascorbic Acid* (Vitamin C*), 500 MG ORAL DAILY, (Reported) Magnesium Hydroxide (Milk of Magnesia), 30 ML ORAL DAILY, (Reported) Multivitamin With Minerals (Multivitamins With Minerals*), 1 TAB ORAL DAILY, (Reported) Na Phos,M-B/Na Phos,Di-Ba* (Fleet Enema*), 133 ML RECTAL DAILY, (Reported) Zinc Sulfate (Zinc Sulfate), 220 MG ORAL DAILY, (Reported) Scheduled PRN Acetaminophen* (Acetaminophen 325MG Tablet*), 325 MG ORAL Q4H PRN for , (Reported) Ondansetron (Zofran), 4 MG ORAL Q6H PRN for Nausea & Vomiting, (Reported) Miscellaneous Medications Bisacodyl (Dulcolax), 10 MG RC, (Reported) Cranberry Fruit (Cranberry), 400 MG PO, (Reported) Dexamethasone (Dexamethasone), 10 GM MC, (Reported) Patient History Healthcare decision maker Resuscitation status Advanced Directive on File Review of Systems ROS Narrative ROS Negative except as noted in the HPI Physical Exam Last 24 Hour Vital Signs Date Time Temp Pulse Resp B/P (MAP) Pulse Ox O2 Delivery O2 Flow Rate FiO2 03/20/20 09:00 Room Air 03/20/20 08:00 98.2 78 18 147/98 (114) 97 03/20/20 04:00 98.4 78 17 133/68 (89) 99 03/20/20 00:00 98.7 75 17 136/71 (92) 97 03/19/20 23:37 Room Air 03/19/20 23:13 97.7 82 16 133/87 100 Room Air 03/19/20 22:56 97.8 76 16 134/90 98 Room Air 03/19/20 20:45 92 20 Room Air 03/19/20 20:45 98.1 87 20 140/95 95 Room Air 03/19/20 20:39 92 20 138/100 (113) 95 Room Air Intake and Output0 03/19/20 03/20/20 19:00 07:00 Intake Total 3689 ml Balance 3689 ml Intake Oral 380 ml IV Total 3309 ml # Voids 1 Laboratory Tests Test 03/19/20 20:15 03/19/20 20:55 03/19/20 22:52 03/20/20 05:26 White Blood Count 12.9 K/UL (4.8-10.8) H Red Blood Count 4.28 M/UL (4.70-6.10) L Hemoglobin 15.0 G/DL (14.2-18.0) Hematocrit 45.9 % (42.0-52.0) Mean Corpuscular Volume 107 FL (80-99) H Mean Corpuscular Hemoglobin 35.0 PG (27.0-31.0) H Mean Corpuscular Hemoglobin Concent 32.7 G/DL (32.0-36.0) Red Cell Distribution Width 13.1 % (11.6-14.8) Platelet Count 83 K/UL (150-450) L Mean Platelet Volume 14.2 FL (6.5-10.1) H Neutrophils (%) (Auto) % (45.0-75.0) Lymphocytes (%) (Auto) % (20.0-45.0) Monocytes (%) (Auto) % (1.0-10.0) Eosinophils (%) (Auto) % (0.0-3.0) Basophils (%) (Auto) % (0.0-2.0) Differential Total Cells Counted 100 Neutrophils % (Manual) 73 % (45-75) Lymphocytes % (Manual) 18 % (20-45) L Monocytes % (Manual) 6 % (1-10) Eosinophils % (Manual) 3 % (0-3) Basophils % (Manual) 0 % (0-2) Band Neutrophils 0 % (0-8) Platelet Estimate Decreased L Platelet Morphology Normal Macrocytosis 1+ Prothrombin Time 12.7 SEC (9.30-11.50) H Prothromb Time International Ratio 1.2 (0.9-1.1) H Activated Partial Thromboplast Time 26 SEC (23-33) Sodium Level 134 MMOL/L (136-145) L Potassium Level 3.9 MMOL/L (3.5-5.1) Chloride Level 101 MMOL/L (98-107) Carbon Dioxide Level 30 MMOL/L (21-32) Anion Gap 4 mmol/L (5-15) L Blood Urea Nitrogen 11 mg/dL (7-18) Creatinine 1.0 MG/DL (0.55-1.30) Estimat Glomerular Filtration Rate > 60 mL/min (>60) Glucose Level 504 MG/DL (74-106) *H Calcium Level 7.9 MG/DL (8.5-10.1) L Total Bilirubin 0.7 MG/DL (0.2-1.0) Aspartate Amino Transf (AST/SGOT) 77 U/L (15-37) H Alanine Aminotransferase (ALT/SGPT) 125 U/L (12-78) H Alkaline Phosphatase 296 U/L (46-116) H Total Protein 5.8 G/DL (6.4-8.2) L Albumin 2.5 G/DL (3.4-5.0) L Globulin 3.3 g/dL Albumin/Globulin Ratio 0.8 (1.0-2.7) L Lipase 368 U/L (73-393) Urine Color Pale yellow Urine Appearance Clear Urine pH 6.5 (4.5-8.0) Urine Specific [place] 1.005 (1.005-1.035) Urine Protein Negative (NEGATIVE) Urine Glucose (UA) 4+ (NEGATIVE) H Urine Ketones Negative (NEGATIVE) Urine Blood Negative (NEGATIVE) Urine Nitrite Negative (NEGATIVE) Urine Bilirubin Negative (NEGATIVE) Urine Urobilinogen Normal MG/DL (0.0-1.0) Urine Leukocyte Esterase Negative (NEGATIVE) POC Whole Blood Glucose 338 MG/DL (74-106) H 259 MG/DL (74-106) H Test 03/20/20 06:00 White Blood Count 13.0 K/UL (4.8-10.8) H Red Blood Count 3.84 M/UL (4.70-6.10) L Hemoglobin 13.3 G/DL (14.2-18.0) L Hematocrit 39.9 % (42.0-52.0) L Mean Corpuscular Volume 104 FL (80-99) H Mean Corpuscular Hemoglobin 34.6 PG (27.0-31.0) H Mean Corpuscular Hemoglobin Concent 33.3 G/DL (32.0-36.0) Red Cell Distribution Width 12.9 % (11.6-14.8) Platelet Count 83 K/UL (150-450) L Mean Platelet Volume 14.5 FL (6.5-10.1) H Neutrophils (%) (Auto) % (45.0-75.0) Lymphocytes (%) (Auto) % (20.0-45.0) Monocytes (%) (Auto) % (1.0-10.0) Eosinophils (%) (Auto) % (0.0-3.0) Basophils (%) (Auto) % (0.0-2.0) Differential Total Cells Counted 100 Neutrophils % (Manual) 71 % (45-75) Lymphocytes % (Manual) 28 % (20-45) Monocytes % (Manual) 1 % (1-10) Eosinophils % (Manual) 0 % (0-3) Basophils % (Manual) 0 % (0-2) Band Neutrophils 0 % (0-8) Platelet Estimate Decreased L Platelet Morphology Normal Macrocytosis 1+ Sodium Level 139 MMOL/L (136-145) Potassium Level 3.7 MMOL/L (3.5-5.1) Chloride Level 106 MMOL/L (98-107) Carbon Dioxide Level 28 MMOL/L (21-32) Anion Gap 5 mmol/L (5-15) Blood Urea Nitrogen 9 mg/dL (7-18) Creatinine 0.8 MG/DL (0.55-1.30) Estimat Glomerular Filtration Rate > 60 mL/min (>60) Glucose Level 264 MG/DL (74-106) #H Hemoglobin A1c 8.9 % (4.3-6.0) H Calcium Level 7.8 MG/DL (8.5-10.1) L Total Bilirubin 0.6 MG/DL (0.2-1.0) Aspartate Amino Transf (AST/SGOT) 66 U/L (15-37) H Alanine Aminotransferase (ALT/SGPT) 102 U/L (12-78) H Alkaline Phosphatase 236 U/L (46-116) H Total Protein 5.1 G/DL (6.4-8.2) L Albumin 2.1 G/DL (3.4-5.0) L Globulin 3.0 g/dL Albumin/Globulin Ratio 0.7 (1.0-2.7) L Microbiology Date/Time Source Procedure Growth Status 03/19/20 22:13 Rectal Mucosa Received 03/19/20 20:51 Nasopharynx SARS-CoV-2 RdRp Gene Assay - Final Complete Height (Feet): 5 Height (Inches): 5.00 Weight (Pounds): 250 Medications Current Medications Medications (Trade) Dose Ordered Sig/Sharmaine Route PRN Reason Start Time Stop Time Status Last Admin Dose Admin Dextrose (Dextrose 50%) 25 ml Q30M PRN IV Hypoglycemia 03/20/20 00:30 06/18/20 00:29 Dextrose (Dextrose 50%) 50 ml Q30M PRN IV Hypoglycemia 03/20/20 00:30 06/18/20 00:29 Furosemide (Lasix) 20 mg DAILY IV 03/20/20 10:00 04/19/20 09:59 03/20/20 10:45 Insulin Aspart (NovoLOG) BEFORE MEALS AND HS SUBQ 03/20/20 06:30 06/18/20 06:29 03/20/20 06:48 Iohexol (OMNIPAQUE-300 100ml) 100 ml NOW PRN INJ Radiology Procedure 03/19/20 21:00 03/21/20 20:59 Morphine Sulfate (Morphine Sulfate) 2 mg Q4H PRN IVP For Pain 03/20/20 00:15 03/27/20 00:14 Spironolactone (Aldactone) 50 mg DAILY ORAL 03/20/20 10:00 04/19/20 09:59 03/20/20 10:45 Objective Narrative GEN: NAD on RA HEENT: NCAT, MMM, EOMI, No Scleral icterus, Neck: No LAD, Supple LUNGS: CTAB, No W HEART: RRR, S1, S2. ABD: Soft, NT, Mild Distension Skin: No rash,, Normal in color NEURO: A/O x 4, No focal deficits Assessment/Plan Assessment/Plan: 39 yo male with with PMHx of DM and COVID 19 Dx 03/08/20 who presented to the ED on 03/19/20 with blood in his stool and abdominal pain. Leukocytosis Unclear cause GIB vs less likely Peritonitis? Other No fever Abdominal Pain COVID 19 Stable on RA SARS COV 2 PCR Pos 03/07/20 and 03/19/20 CXR 03/19/20 Improved B/L Infiltrates DM Cirrhosis seen on CT PLAN - Start Ceftriaxone and Vancomycin for pending Cx - f/u Cx - f/u Paracentesis - Sunday? - COVID 19 Iso for now - Monitor Respiratory status - f/u GI recs for GI Bleed Thank you for this consult. [facility] will continue to follow Mr. Banuelos with you. Bryant Payne MD Mar 20, 2020 11:00
[2020-03-20 11:34] VITALS: BP 142/86
[2020-03-20] MEDS: cefTRIAXone 1 GM in D5W 55 ML IVPB SCH (12:23)
[2020-03-20] MEDS ORDERED: Vancomycin 1.5gm/NS Premix IVPB ONE (13:00)
--- NOTE | 2020-03-20 13:47 | NUR ---
NURSE NOTES: RN SPOKE TO PT'S BROTHER, JUVENTINO AND EDUCATED ON PLAN FOR PARACENTESIS. RN PROVIDED PT AND JUVENTINO HENDERSON'S NUMBER FOR RISK AND BENEFITS OF PROCEDURE. RN LEFT MESSAGE FOR DR HENDERSON, PROVIDING MD WITH JUVENTINO'S PHONE NUMBER AND REQUEST TO GO OVER PROCEDURE. Addendum: 03/20/20 at 1819 by EFRAIN REYNOLDS RN RN JUVENTINO'S PHONE NUMBER
[2020-03-20] MEDS: Levemir Flexpen SUBQ SCH (15:07)
[2020-03-20 16:00] VITALS: BP 148/76
--- NOTE | 2020-03-20 16:15 | Consultation ---
DATE OF CONSULTATION: 03/20/2020 ENDOCRINOLOGY CONSULTATION REFERRING PHYSICIAN: Sebastián Carlson D.O. REASON FOR CONSULTATION: Diabetes management. HISTORY OF PRESENT ILLNESS: The patient is a 39-year-old male with history of diabetes and COVID infection, who presents to the hospital with blood in the stool, admitted to observation bed for GI evaluation. I was called to manage diabetes. PAST MEDICAL HISTORY: 1. COVID infection. 2. Diabetes. PAST SURGICAL HISTORY: None. FAMILY HISTORY: Noncontributory. SOCIAL HISTORY: No smoking, alcohol, or drug use. REVIEW OF SYSTEMS: As per HPI. PHYSICAL EXAMINATION: VITAL SIGNS: Blood pressure 142/86, heart rate 97, respiratory rate 17, temperature 98.2. The rest of the exam is deferred due to COVID-19 infection. DIAGNOSES: 1. GI bleed. 2. COVID infection. 3. Diabetes, out of control. PLAN: 1. Start Levemir 18 units daily. 2. Start NovoLog 6 units before each meal. 3. NovoLog sliding scale before meals and at bedtime. 4. Further adjustment according to blood glucose values. Thank you Dr. Carlson for the courtesy of this consultation. Wellington Foster M.D. DR: SANCHEZ JOB#: [id number] CC:
--- NOTE | 2020-03-20 18:15 | NUR ---
NURSE HAND-OFF: Important Events on Shift: PT'S BROTHER, JUVENTINO, TO SPEAK WITH DR HENDERSON REGARDING PARACENTESIS. CONSENT FOR PARACENTESIS PENDING. Patient Status: STABLE Diet: CCHO MEDIUM Pending Orders: N/A Pending Results/Labs:N/A Pending MD notification:N/A Latest Vital Signs: Temperature 98.1 , Pulse 89 , B/P 148 /76 , Respiratory Rate 18 , O2 SAT 98 , Room Air, O2 Flow Rate . Vital Sign Comment: STABLE Latest Gutierrez Fall Score: 20 Fall Risk: Low Risk Safety Measures: Call light Within Reach, Bed Alarm Zone 1, Side Rails Side Rails x2, Bed position Low and Locked. Fall Precautions: Patient Fall Education Addendum: 03/20/20 at 1903 by EFRAIN REYNOLDS RN RN HAND-OFF: Report given to Yee SOTO RN.
--- NOTE | 2020-03-20 19:32 | NUR ---
NURSE NOTES: Received report from LUCIEN Blackwood. AAO x 4, on room air, ambulatory. No SOB or labored breathing. ABD distended noted. Consent sign form is pending. IV site intact and patent. Bed locked, lowest position, side rails up, alarm on, call light within reach. Will continue to monitor.
[2020-03-20 20:00] VITALS: BP 146/101
[2020-03-20] MEDS: Vancomycin 1 GM in NS 275 ML IVPB SCH (21:07)
[2020-03-20] MEDS: Morphine Sulfate 2mg/ml Inj(IV/IM USE ONLY) IVP PRN (21:20)
[2020-03-20] MEDS ORDERED: Vancomycin 1gm/D5W 275ml IVPB SCH ×2 (22:00)
[2020-03-21] VITALS: BP 145/95
[2020-03-21 04:00] VITALS: BP 150/99
[2020-03-21] MEDS: Vancomycin 1 GM in NS 275 ML IVPB SCH (05:08)
[2020-03-21] MEDS: NovoLOG Insulin Flexpen SUBQ SCH ×7 (05:40→21:12)
--- NOTE | 2020-03-21 06:31 | NUR ---
NURSE HAND-OFF: Important Events on Shift:consent for paracentesis pending Patient Status: stable Diet: CCHO M Pending Orders: paracentesis Pending Results/Labs:AM labs Pending MD notification:N Latest Vital Signs: Temperature 98.1 , Pulse 81 , B/P 150 /99 , Respiratory Rate 20 , O2 SAT 96 , Room Air, O2 Flow Rate . Vital Sign Comment: [] Latest Gutierrez Fall Score: 20 Fall Risk: Low Risk Safety Measures: Call light Within Reach, Bed Alarm Zone 1, Side Rails Side Rails x2, Bed position Low and Locked. Fall Precautions: Patient Fall Education Addendum: 03/21/20 at 0739 by KELLEY SOTO RN RN HAND-OFF: Report given to Talya.
[2020-03-21 06:54] LABS: HEMATOCRIT 38.8 % (42.0-52.0); HEMOGLOBIN 13.2 G/DL (14.2-18.0); MEAN CORPUSCULAR VOLUME 103 FL (80-99); PLATELET COUNT 91 K/UL (150-450); RED BLOOD COUNT 3.76 M/UL (4.70-6.10); RED CELL DISTRIBUTION WIDTH 12.9 % (11.6-14.8); WHITE BLOOD COUNT 11.4 K/UL (4.8-10.8)
[2020-03-21 07:35] LABS: ALANINE AMINOTRANSFERASE 105 U/L (12-78); ALBUMIN 2.3 G/DL (3.4-5.0); ALBUMIN/GLOBULIN RATIO 0.7 (1.0-2.7); ALKALINE PHOSPHATASE 199 U/L (46-116); ANION GAP 8 mmol/L (5-15); ASPARTATE AMINO TRANSFERASE 79 U/L (15-37); BILIRUBIN,TOTAL 0.9 MG/DL (0.2-1.0); BLOOD UREA NITROGEN 7 mg/dL (7-18); CALCIUM 7.9 MG/DL (8.5-10.1); CARBON DIOXIDE 25 MMOL/L (21-32); CHLORIDE 105 MMOL/L (98-107); CREATININE 0.6 MG/DL (0.55-1.30); POTASSIUM 3.5 MMOL/L (3.5-5.1); SODIUM 138 MMOL/L (136-145)
[2020-03-21 07:40] LABS: AMMONIA 60 umol/L (11-32)
--- NOTE | 2020-03-21 07:45 | NUR ---
NURSE NOTES: RECEIVED PATIENT A/A/OX4, AMBULATES WITH STEADY GAIT. TOLERATING FOOD INTAKE WELL. NO C/O PAIN/DISCOMFORT NOTED. NO C/O N/V NOTED. REFUSED SCD'S THOUGH PATIENT AMBULATES FREQUENTLY. SKIN IS INTACT. OBSERVED FOR (+) COVID. PIV PATENT AND INTACT. HEPLOCK. KEPT BED IN THE LOWEST POSITION. SIDERAILS ARE UPX3, CALL LIGHT IS WITHIN REACH. BRAKES AND BED LOCK MODE. WILL CONT TO MONITOR.
[2020-03-21 08:00] VITALS: BP 143/99
--- NOTE | 2020-03-21 08:05 | General Progress Note ---
Subjective Allergies: Coded Allergies: No Known Allergies (Unverified , 03/07/20) Objective Last 24 Hour Vital Signs Date Time Temp Pulse Resp B/P (MAP) Pulse Ox O2 Delivery O2 Flow Rate FiO2 03/21/20 04:00 98.1 81 20 150/99 (116) 96 03/21/20 00:00 99.0 87 20 145/95 (112) 98 03/20/20 21:00 Room Air 03/20/20 20:00 99.1 81 20 146/101 (116) 97 03/20/20 16:00 98.1 89 18 148/76 (100) 98 03/20/20 11:34 96.0 97 17 142/86 (104) 96 03/20/20 09:00 Room Air Intake and Output 03/20/20 03/21/20 19:00 07:00 Intake Total 3530.0 ml Balance 3530.0 ml Intake Oral 3200 ml IV Total 330.0 ml # Voids 2 Laboratory Tests 03/20/20 11:22: POC Whole Blood Glucose 313H 03/20/20 16:00: POC Whole Blood Glucose 293H 03/20/20 20:43: POC Whole Blood Glucose 257H 03/21/20 04:00: White Blood Count 11.4H, Red Blood Count 3.76L, Hemoglobin 13.2L, Hematocrit 38.8L, Mean Corpuscular Volume 103H, Mean Corpuscular Hemoglobin 35.2H, Mean Corpuscular Hemoglobin Concent 34.1, Red Cell Distribution Width 12.9, Platelet Count 91L, Mean Platelet Volume 11.5H, Neutrophils (%) (Auto) , Lymphocytes (%) (Auto) , Monocytes (%) (Auto) , Eosinophils (%) (Auto) , Basophils (%) (Auto) , Neutrophils % (Manual) [Pending], Lymphocytes % (Manual) [Pending], Platelet Estimate [Pending], Platelet Morphology [Pending], Sodium Level 138, Potassium Level 3.5, Chloride Level 105, Carbon Dioxide Level 25, Anion Gap 8, Blood Urea Nitrogen 7, Creatinine 0.6, Estimat Glomerular Filtration Rate > 60, Glucose Level 139#H, Calcium Level 7.9L, Total Bilirubin 0.9, Aspartate Amino Transf (AST/SGOT) 79H, Alanine Aminotransferase (ALT/SGPT) 105H, Alkaline Phosphatase 199H, Ammonia 60H, Total Protein 5.7L, Albumin 2.3L, Globulin 3.4, Albumin/Globulin Ratio 0.7L, Hepatitis A IgM Antibody [Pending], Hepatitis B Surface Antigen [Pending], Hepatitis B Core IgM Antibody [Pending], Hepatitis C Antibody [Pending] Height (Feet): 5 Height (Inches): 5.00 Weight (Pounds): 250 General Appearance: no apparent distress EENT: normal ENT inspection Neck: supple Cardiovascular: normal rate Respiratory/Chest: lungs clear Abdomen: normal bowel sounds, non tender, soft Extremities: non-tender Assessment/Plan Assessment/Plan: cirrhosis ascites portal HTN DM elevated LFTS Covid + elevated ammonia level hepatitis panel lasix and aldactone paracentesis to r/o SBP repeat labs add lactulose Lul Deluna MD Mar 21, 2020 08:05
[2020-03-21] MEDS: Lactulose 20gm/30ml UDC ORAL SCH ×2 (08:45→17:02)
[2020-03-21] MEDS: Levemir Flexpen SUBQ SCH (08:53)
[2020-03-21] MEDS: Spironolactone 50mg tab ORAL SCH (08:54)
--- NOTE | 2020-03-21 09:09 | General Progress Note ---
Subjective Constitutional: Reports: weakness Allergies: Coded Allergies: No Known Allergies (Unverified , 03/07/20) All Systems: reviewed and negative except above Subjective sleepy calm in bed Objective Last 24 Hour Vital Signs Date Time Temp Pulse Resp B/P (MAP) Pulse Ox O2 Delivery O2 Flow Rate FiO2 03/21/20 08:00 98.1 102 21 143/99 (114) 97 03/21/20 04:00 98.1 81 20 150/99 (116) 96 03/21/20 00:00 99.0 87 20 145/95 (112) 98 03/20/20 21:00 Room Air 03/20/20 20:00 99.1 81 20 146/101 (116) 97 03/20/20 16:00 98.1 89 18 148/76 (100) 98 03/20/20 11:34 96.0 97 17 142/86 (104) 96 Intake and Output 03/20/20 03/21/20 19:00 07:00 Intake Total 3530.0 ml Balance 3530.0 ml Intake Oral 3200 ml IV Total 330.0 ml # Voids 2 Laboratory Tests 03/20/20 11:22: POC Whole Blood Glucose 313H 03/20/20 16:00: POC Whole Blood Glucose 293H 03/20/20 20:43: POC Whole Blood Glucose 257H 03/21/20 04:00: White Blood Count 11.4H, Red Blood Count 3.76L, Hemoglobin 13.2L, Hematocrit 38.8L, Mean Corpuscular Volume 103H, Mean Corpuscular Hemoglobin 35.2H, Mean Corpuscular Hemoglobin Concent 34.1, Red Cell Distribution Width 12.9, Platelet Count 91L, Mean Platelet Volume 11.5H, Neutrophils (%) (Auto) , Lymphocytes (%) (Auto) , Monocytes (%) (Auto) , Eosinophils (%) (Auto) , Basophils (%) (Auto) , Neutrophils % (Manual) [Pending], Lymphocytes % (Manual) [Pending], Platelet Estimate [Pending], Platelet Morphology [Pending], Sodium Level 138, Potassium Level 3.5, Chloride Level 105, Carbon Dioxide Level 25, Anion Gap 8, Blood Urea Nitrogen 7, Creatinine 0.6, Estimat Glomerular Filtration Rate > 60, Glucose Level 139#H, Calcium Level 7.9L, Total Bilirubin 0.9, Aspartate Amino Transf (AST/SGOT) 79H, Alanine Aminotransferase (ALT/SGPT) 105H, Alkaline Phosphatase 199H, Ammonia 60H, Total Protein 5.7L, Albumin 2.3L, Globulin 3.4, Albumin/Globulin Ratio 0.7L, Hepatitis A IgM Antibody [Pending], Hepatitis B Surface Antigen [Pending], Hepatitis B Core IgM Antibody [Pending], Hepatitis C Antibody [Pending] Height (Feet): 5 Height (Inches): 5.00 Weight (Pounds): 250 General Appearance: lethargic EENT: normal ENT inspection Neck: normal alignment Cardiovascular: normal peripheral pulses, normal rate, regular rhythm Respiratory/Chest: chest wall non-tender, lungs clear, normal breath sounds Abdomen: normal bowel sounds, non tender, soft Extremities: normal inspection Edema: no edema noted Arm (L), no edema noted Arm (R), no edema noted Leg (L), no edema noted Leg (R), no edema noted Pedal (L), no edema noted Pedal (R), no edema noted Generalized Neurologic: motor weakness Skin: normal pigmentation, warm/dry Assessment/Plan Problem List: (1) Hyperglycemia ICD Codes: R73.9 - Hyperglycemia, unspecified SNOMED: 75230460 (2) Pneumonia due to COVID-19 virus ICD Codes: U07.1 - COVID-19; J12.89 - Other viral pneumonia SNOMED: 156884510563025320 (3) Ascites due to alcoholic cirrhosis ICD Codes: K70.31 - Alcoholic cirrhosis of liver with ascites SNOMED: 3746139705185702 (4) LGI bleed ICD Codes: K92.2 - Gastrointestinal hemorrhage, unspecified SNOMED: 96986696 Status: unchanged Assessment/Plan: o2 pulm tx prn abx gi id hem eval cbc bmp am Sebastián Carlson DO Mar 21, 2020 09:09
--- NOTE | 2020-03-21 10:43 | NUR ---
NURSE NOTES: SPOKE WITH BROTHER JAUREGUI. PROVIDED DR HENDERSON'S NUMBER PRIOR OBTAINING CONSENT. WILL CONT TO MONITOR. Addendum: 03/21/20 at 1739 by SIRIA BAÑUELOS LVN NURSE NOTES: still awaiting for GI MD to return his voicemessage. will cont to monitor.
--- NOTE | 2020-03-21 10:51 | Consultation ---
History of Present Illness General Chief Complaint: Abdominal Pain Referring physician: Aldo Reason for Consultation: COVID 19 Present Illness Allergies: Coded Allergies: No Known Allergies (Unverified , 03/07/20) Medication History Scheduled PRN Acetaminophen* (Acetaminophen 325MG Tablet*), 650 MG ORAL Q4H PRN for MILD PAIN (1-4), TEMP>101F, (Reported) Ondansetron (Zofran), 4 MG ORAL Q6H PRN for Nausea & Vomiting, (Reported) Discontinued Medications Ascorbic Acid* (Vitamin C*), 500 MG ORAL DAILY, (Reported) Discontinued Reason: Therapy completed Bisacodyl (Dulcolax), 10 MG RC, (Reported) Discontinued Reason: Therapy completed Cranberry Fruit (Cranberry), 400 MG PO, (Reported) Discontinued Reason: Therapy completed Dexamethasone (Dexamethasone), 10 GM MC, (Reported) Discontinued Reason: Therapy completed Magnesium Hydroxide (Milk of Magnesia), 30 ML ORAL DAILY, (Reported) Discontinued Reason: Therapy completed Multivitamin With Minerals (Multivitamins With Minerals*), 1 TAB ORAL DAILY, (Reported) Discontinued Reason: Therapy completed Na Phos,M-B/Na Phos,Di-Ba* (Fleet Enema*), 133 ML RECTAL DAILY, (Reported) Discontinued Reason: Therapy completed Zinc Sulfate (Zinc Sulfate), 220 MG ORAL DAILY, (Reported) Discontinued Reason: Therapy completed Patient History Healthcare decision maker Resuscitation status Advanced Directive on File Physical Exam Last 24 Hour Vital Signs Date Time Temp Pulse Resp B/P (MAP) Pulse Ox O2 Delivery O2 Flow Rate FiO2 03/21/20 09:00 Room Air 03/21/20 08:00 98.1 102 21 143/99 (114) 97 03/21/20 04:00 98.1 81 20 150/99 (116) 96 03/21/20 00:00 99.0 87 20 145/95 (112) 98 03/20/20 21:00 Room Air 03/20/20 20:00 99.1 81 20 146/101 (116) 97 03/20/20 16:00 98.1 89 18 148/76 (100) 98 03/20/20 11:34 96.0 97 17 142/86 (104) 96 Intake and Output 03/20/20 03/21/20 19:00 07:00 Intake Total 3530.0 ml Balance 3530.0 ml Intake Oral 3200 ml IV Total 330.0 ml # Voids 2 Laboratory Tests Test 03/20/20 11:22 03/20/20 16:00 03/20/20 20:43 03/21/20 04:00 POC Whole Blood Glucose 313 MG/DL (74-106) H 293 MG/DL (74-106) H 257 MG/DL (74-106) H White Blood Count 11.4 K/UL (4.8-10.8) H Red Blood Count 3.76 M/UL (4.70-6.10) L Hemoglobin 13.2 G/DL (14.2-18.0) L Hematocrit 38.8 % (42.0-52.0) L Mean Corpuscular Volume 103 FL (80-99) H Mean Corpuscular Hemoglobin 35.2 PG (27.0-31.0) H Mean Corpuscular Hemoglobin Concent 34.1 G/DL (32.0-36.0) Red Cell Distribution Width 12.9 % (11.6-14.8) Platelet Count 91 K/UL (150-450) L Mean Platelet Volume 11.5 FL (6.5-10.1) H Neutrophils (%) (Auto) % (45.0-75.0) Lymphocytes (%) (Auto) % (20.0-45.0) Monocytes (%) (Auto) % (1.0-10.0) Eosinophils (%) (Auto) % (0.0-3.0) Basophils (%) (Auto) % (0.0-2.0) Differential Total Cells Counted 100 Neutrophils % (Manual) 73 % (45-75) Lymphocytes % (Manual) 15 % (20-45) L Monocytes % (Manual) 10 % (1-10) Eosinophils % (Manual) 2 % (0-3) Basophils % (Manual) 0 % (0-2) Band Neutrophils 0 % (0-8) Platelet Estimate Decreased L Platelet Morphology Normal Hypochromasia 1+ Macrocytosis 1+ Sodium Level 138 MMOL/L (136-145) Potassium Level 3.5 MMOL/L (3.5-5.1) Chloride Level 105 MMOL/L (98-107) Carbon Dioxide Level 25 MMOL/L (21-32) Anion Gap 8 mmol/L (5-15) Blood Urea Nitrogen 7 mg/dL (7-18) Creatinine 0.6 MG/DL (0.55-1.30) Estimat Glomerular Filtration Rate > 60 mL/min (>60) Glucose Level 139 MG/DL (74-106) #H Calcium Level 7.9 MG/DL (8.5-10.1) L Total Bilirubin 0.9 MG/DL (0.2-1.0) Aspartate Amino Transf (AST/SGOT) 79 U/L (15-37) H Alanine Aminotransferase (ALT/SGPT) 105 U/L (12-78) H Alkaline Phosphatase 199 U/L (46-116) H Ammonia 60 umol/L (11-32) H Total Protein 5.7 G/DL (6.4-8.2) L Albumin 2.3 G/DL (3.4-5.0) L Globulin 3.4 g/dL Albumin/Globulin Ratio 0.7 (1.0-2.7) L Hepatitis A IgM Antibody Pending Hepatitis B Surface Antigen Pending Hepatitis B Core IgM Antibody Pending Hepatitis C Antibody Pending Height (Feet): 5 Height (Inches): 5.00 Weight (Pounds): 250 Medications Current Medications Medications (Trade) Dose Ordered Sig/Sharmaine Route PRN Reason Start Time Stop Time Status Last Admin Dose Admin Ceftriaxone Sodium 1 gm/ Dextrose 55 ml @ 110 mls/hr Q24H IVPB 03/20/20 12:00 03/27/20 11:59 03/20/20 12:23 Dextrose (Dextrose 50%) 25 ml Q30M PRN IV Hypoglycemia 03/20/20 00:30 06/18/20 00:29 Dextrose (Dextrose 50%) 50 ml Q30M PRN IV Hypoglycemia 03/20/20 00:30 06/18/20 00:29 Furosemide (Lasix) 20 mg DAILY IV 03/20/20 10:00 04/19/20 09:59 03/21/20 08:37 Insulin Aspart (NovoLOG) BEFORE MEALS AND HS SUBQ 03/20/20 06:30 06/18/20 06:29 03/21/20 05:40 Insulin Aspart (NovoLOG) 6 units NOVOTIAC SUBQ 03/20/20 16:50 06/18/20 16:49 03/21/20 05:40 Insulin Detemir (Levemir) 18 units DAILY SUBQ 03/20/20 15:00 06/18/20 14:59 03/21/20 08:53 Iohexol (OMNIPAQUE-300 100ml) 100 ml NOW PRN INJ Radiology Procedure 03/19/20 21:00 03/21/20 20:59 Lactulose (Cephulac) 20 gm BID ORAL 03/21/20 09:00 04/20/20 08:59 03/21/20 08:45 Morphine Sulfate (Morphine Sulfate) 2 mg Q4H PRN IVP For Pain 03/20/20 00:15 03/27/20 00:14 03/20/20 21:20 Spironolactone (Aldactone) 50 mg DAILY ORAL 03/20/20 10:00 04/19/20 09:59 03/21/20 08:54 Vancomycin HCl (Vanco pharmacy to dose) 1 ea DAILY PRN MISC Per rx protocol 03/20/20 11:00 04/19/20 10:59 Vancomycin HCl 1 gm/Sodium Chloride 275 ml @ 183.708 mls/hr Q8HR IVPB 03/20/20 22:00 03/25/20 21:59 03/21/20 05:08 Assessment/Plan Assessment/Plan: Hematology Consultation REQ : Ricki Krishnamurthy RFC: low plts DOS 03/21/2020 HPI 39-year-old male presents to ED for evaluation. Brought in for blood in stool. Pain is dull, 7 out of 10, nonradiating. States his abdomen is distended. Coming from alf facility. Patient was recently admitted here for Covid pneumonia and subsequently discharged to facility. Patient denies any fevers or chills. Denies cough. No other aggravating relieving factors. De nies any other associated symptoms, plt are 91, and gi consulted as well for hx alcoholic cirrhosis. 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 COVID-19 Screening: Positive COVID-19 Patient History Past Medical History: DM Past Surgical History: none Pertinent Family History: none Social History: Denies: smoking, alcohol use, drug use Immunizations: UTD Reviewed Nursing Documentation: PMH: Agreed; PSxH: Agreed Nursing Documentation-PMH Hx Cardiac Problems: No Hx Diabetes: Yes Hx Cancer: No Hx Gastrointestinal Problems: No - GERD Hx Neurological Problems: No Review of Systems All Other Systems: negative except mentioned in HPI Physical Exam Sp02 EP Interpretation: reviewed, normal General: no apparent distress Head: normocephalic, atraumatic Eyes: bilateral eye normal inspection, bilateral eye PERRL ENT: hearing grossly normal, normal pharynx, no angioedema, normal voice Neck: full range of motion, supple/symm/no masses Respiratory: chest non-tender, lungs clear, normal breath sounds, speaking full sentences Cardiovascular: regular rate, rhythm, no edema Gastrointestinal: normal bowel sounds, no guarding Rectal: deferred Genitourinary: normal inspection, no CVA tenderness Neurologic: alert, motor strength/tone normal, oriented x3, sensory intact, responsive, speech normal Skin: no rash Lymphatic: no adenopathy Labs: reviewed Imaging: noted Assessment and Recs # Thrombocytopenia - potential causes multifactorial, does endorse a hx of alcoholic cirrhosis --> hiv and hep thus far neg --> CT 2. Cirrhosis of the liver. 3. 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 --> Peripheral smear ordered to evaluate for blasts /schistocytes --> abx and other meds have been reviewed --> ok for ppx if plt >50k w/ either heparin or lovenox --> Transfuse if Plt < 20k and fever, or if Plt < 10k without fever # Anemia that is due to LGI bleed --> r'o variceal bleed --> per gi endscopy prn --> ppi as needed # Leukocytosis is due to Bilateral pna with COVID-19 --> ABX vanc/ctx --> smear is reviewed # Hyperglycemia -> iss and accuchecks as needed # Ascites due to alcoholic cirrhosis # Dvt ppx scds The timing of this note does not necessarily reflect the time of the patient was seen. Greatly appreciate consultation. Yunier Marquez MD Mar 21, 2020 10:51
[2020-03-21 12:00] VITALS: BP 147/101
[2020-03-21] MEDS: cefTRIAXone 1 GM in D5W 55 ML IVPB SCH (12:13)
--- NOTE | 2020-03-21 13:05 | General Progress Note ---
Subjective Allergies: Coded Allergies: No Known Allergies (Unverified , 03/07/20) All Systems: reviewed and negative except above Subjective events noted interval notes reviewed glucose values improved Item Value Date Time Bedside Blood Glucose 203 mg/dl H 03/21/20 1203 Bedside Blood Glucose 143 mg/dl H 03/21/20 0853 Bedside Blood Glucose 143 mg/dl H 03/21/20 0550 Bedside Blood Glucose 257 mg/dl H 03/20/20 2109 Bedside Blood Glucose 293 mg/dl H 03/20/20 1653 Bedside Blood Glucose 313 mg/dl H 03/20/20 1151 Objective Last 24 Hour Vital Signs Date Time Temp Pulse Resp B/P (MAP) Pulse Ox O2 Delivery O2 Flow Rate FiO2 03/21/20 09:00 Room Air 03/21/20 08:00 98.1 102 21 143/99 (114) 97 03/21/20 04:00 98.1 81 20 150/99 (116) 96 03/21/20 00:00 99.0 87 20 145/95 (112) 98 03/20/20 21:00 Room Air 03/20/20 20:00 99.1 81 20 146/101 (116) 97 03/20/20 16:00 98.1 89 18 148/76 (100) 98 Intake and Output 03/20/20 03/21/20 19:00 07:00 Intake Total 3530.0 ml Balance 3530.0 ml Intake Oral 3200 ml IV Total 330.0 ml # Voids 2 Laboratory Tests 03/20/20 16:00: POC Whole Blood Glucose 293H 03/20/20 20:43: POC Whole Blood Glucose 257H 03/21/20 04:00: White Blood Count 11.4H, Red Blood Count 3.76L, Hemoglobin 13.2L, Hematocrit 38.8L, Mean Corpuscular Volume 103H, Mean Corpuscular Hemoglobin 35.2H, Mean Corpuscular Hemoglobin Concent 34.1, Red Cell Distribution Width 12.9, Platelet Count 91L, Mean Platelet Volume 11.5H, Neutrophils (%) (Auto) , Lymphocytes (%) (Auto) , Monocytes (%) (Auto) , Eosinophils (%) (Auto) , Basophils (%) (Auto) , Differential Total Cells Counted 100, Neutrophils % (Manual) 73, Lymphocytes % (Manual) 15L, Monocytes % (Manual) 10, Eosinophils % (Manual) 2, Basophils % (Manual) 0, Band Neutrophils 0, Platelet Estimate DecreasedL, Platelet Morphology Normal, Hypochromasia 1+, Macrocytosis 1+, Sodium Level 138, [place] m Level 3.5, Chloride Level 105, Carbon Dioxide Level 25, Anion Gap 8, Blood Urea Nitrogen 7, Creatinine 0.6, Estimat Glomerular Filtration Rate > 60, Glucose Level 139#H, Calcium Level 7.9L, Total Bilirubin 0.9, Aspartate Amino Transf (AST/SGOT) 79H, Alanine Aminotransferase (ALT/SGPT) 105H, Alkaline Phosphatase 199H, Ammonia 60H, Total Protein 5.7L, Albumin 2.3L, Globulin 3.4, Albumin/Globulin Ratio 0.7L, Hepatitis A IgM Antibody [Pending], Hepatitis B Surface Antigen [Pending], Hepatitis B Core IgM Antibody [Pending], Hepatitis C Antibody [Pending], HIV (1&2) Antibody Rapid Negative 03/21/20 11:57: POC Whole Blood Glucose [Pending] 03/21/20 12:40: Vancomycin Level Trough [Pending] Height (Feet): 5 Height (Inches): 5.00 Weight (Pounds): 250 Objective Current Medications Medications (Trade) Dose Ordered Sig/Sharmaine Route PRN Reason Start Time Stop Time Status Last Admin Dose Admin Ceftriaxone Sodium 1 gm/ Dextrose 55 ml @ 110 mls/hr Q24H IVPB 03/20/20 12:00 03/27/20 11:59 03/21/20 12:13 Dextrose (Dextrose 50%) 25 ml Q30M PRN IV Hypoglycemia 03/20/20 00:30 06/18/20 00:29 Dextrose (Dextrose 50%) 50 ml Q30M PRN IV Hypoglycemia 03/20/20 00:30 06/18/20 00:29 Furosemide (Lasix) 20 mg DAILY IV 03/20/20 10:00 04/19/20 09:59 03/21/20 08:37 Insulin Aspart (NovoLOG) BEFORE MEALS AND HS SUBQ 03/20/20 06:30 06/18/20 06:29 03/21/20 12:03 Insulin Aspart (NovoLOG) 6 units NOVOTIAC SUBQ 03/20/20 16:50 06/18/20 16:49 03/21/20 12:01 Insulin Detemir (Levemir) 18 units DAILY SUBQ 03/20/20 15:00 06/18/20 14:59 03/21/20 08:53 Iohexol (OMNIPAQUE-300 100ml) 100 ml NOW PRN INJ Radiology Procedure 03/19/20 21:00 03/21/20 20:59 Lactulose (Cephulac) 20 gm BID ORAL 03/21/20 09:00 04/20/20 08:59 03/21/20 08:45 Morphine Sulfate (Morphine Sulfate) 2 mg Q4H PRN IVP For Pain 03/20/20 00:15 03/27/20 00:14 03/20/20 21:20 Pantoprazole (Protonix) 40 mg EVERY 12 HOURS ORAL 03/21/20 21:00 04/20/20 20:59 Spironolactone (Aldactone) 50 mg DAILY ORAL 03/20/20 10:00 04/19/20 09:59 03/21/20 08:54 Vancomycin HCl (Vanco pharmacy to dose) 1 ea DAILY PRN MISC Per rx protocol 03/20/20 11:00 04/19/20 10:59 Vancomycin HCl 1 gm/Sodium Chloride 275 ml @ 183.708 mls/hr Q8HR IVPB 03/20/20 22:00 03/25/20 21:59 03/21/20 05:08 Assessment/Plan Problem List: (1) COVID-19 ICD Codes: U07.1 - COVID-19 SNOMED: 560446696 (2) Pneumonia due to COVID-19 virus ICD Codes: U07.1 - COVID-19; J12.89 - Other viral pneumonia SNOMED: 212282036873991866 (3) Hyperglycemia ICD Codes: R73.9 - Hyperglycemia, unspecified SNOMED: 55203759 Status: unchanged Assessment/Plan: continue Levemir 18 units daily continue Novolog 6 units ac tid continue Novolog sliding scale ac / hs Wellington Foster MD Mar 21, 2020 13:05
[2020-03-21 16:00] VITALS: BP 153/97
--- NOTE | 2020-03-21 18:09 | NUR ---
NURSE NOTES: OBTAINED TEL CONSENT FOR PARACENTESIS FROM [facility]. WILL CONT TO MONITOR.
--- NOTE | 2020-03-21 19:04 | NUR ---
NURSE HAND-OFF: Important Events on Shift:[OBTAINED CONSENT FOR PARACENTESIS, VSS, AFEBRILE, ACCUCHECK MONITORING] Patient Status: [STABLE] Diet: [CCHO MED] Pending Orders: [LABS] Pending Results/Labs:[IN AM ] Pending MD notification:[] Latest Vital Signs: Temperature 98.2 , Pulse 92 , B/P 153 /97 , Respiratory Rate 20 , O2 SAT 99 , Room Air, O2 Flow Rate . Vital Sign Comment: [] Latest Gutierrez Fall Score: 20 Fall Risk: Low Risk Safety Measures: Call light Within Reach, Bed Alarm Zone 1, Side Rails Side Rails x2, Bed position Low and Locked. Fall Precautions: Patient Fall Education Report given to [KELLEY].
--- NOTE | 2020-03-21 19:07 | NUR ---
NURSE NOTES: Received report from TIFFANIE Babin. AAO x 4, on room air, ambulatory. No SOB or labored breathing. ABD distended noted. Consent sign obtained for paracentesis. IV site intact and patent. Bed locked, lowest position, side rails up, alarm on, call light within reach. Will continue to monitor.
[2020-03-21 20:00] VITALS: BP 148/101
[2020-03-22] VITALS: BP 144/98
[2020-03-22 04:00] VITALS: BP 144/93
[2020-03-22] MEDS: NovoLOG Insulin Flexpen SUBQ SCH ×7 (05:41→20:58)
--- NOTE | 2020-03-22 06:34 | General Progress Note ---
Subjective Allergies: Coded Allergies: No Known Allergies (Unverified , 03/07/20) All Systems: reviewed and negative except above Subjective events noted interval notes reviewed glucose values improved Item Value Date Time Bedside Blood Glucose 112 mg/dl 03/22/20 0542 Bedside Blood Glucose 220 mg/dl H 03/21/20 2112 Bedside Blood Glucose 162 mg/dl H 03/21/20 1708 Bedside Blood Glucose 203 mg/dl H 03/21/20 1203 Bedside Blood Glucose 143 mg/dl H 03/21/20 0853 Bedside Blood Glucose 143 mg/dl H 03/21/20 0550 Objective Last 24 Hour Vital Signs Date Time Temp Pulse Resp B/P (MAP) Pulse Ox O2 Delivery O2 Flow Rate FiO2 03/22/20 04:00 97.9 90 20 144/93 (110) 96 03/22/20 00:00 98.1 81 18 144/98 (113) 96 03/21/20 20:39 Room Air 03/21/20 20:00 97.5 85 18 148/101 (117) 95 03/21/20 16:00 98.2 92 20 153/97 (115) 99 03/21/20 12:00 98.2 97 20 147/101 (116) 96 03/21/20 09:00 Room Air 03/21/20 08:00 98.1 102 21 143/99 (114) 97 Intake and Output 03/21/20 03/22/20 19:00 07:00 Intake Total 590 ml Balance 590 ml Intake Oral 480 ml IV Total 110 ml # Voids 5 2 # Bowel Movements 2 2 Laboratory Tests 03/21/20 11:57: POC Whole Blood Glucose [Pending] 03/21/20 12:40: Vancomycin Level Trough 5.9 03/21/20 17:00: POC Whole Blood Glucose [Pending] 03/21/20 21:04: POC Whole Blood Glucose [Pending] 03/22/20 05:35: POC Whole Blood Glucose [Pending] Height (Feet): 5 Height (Inches): 5.00 Weight (Pounds): 250 Objective Current Medications Medications (Trade) Dose Ordered Sig/Sharmaine Route PRN Reason Start Time Stop Time Status Last Admin Dose Admin Ceftriaxone Sodium 1 gm/ Dextrose 55 ml @ 110 mls/hr Q24H IVPB 03/20/20 12:00 03/27/20 11:59 03/21/20 12:13 Dextrose (Dextrose 50%) 25 ml Q30M PRN IV Hypoglycemia 03/20/20 00:30 06/18/20 00:29 Dextrose (Dextrose 50%) 50 ml Q30M PRN IV Hypoglycemia 03/20/20 00:30 06/18/20 00:29 Furosemide (Lasix) 20 mg DAILY IV 03/20/20 10:00 04/19/20 09:59 03/21/20 08:37 Insulin Aspart (NovoLOG) BEFORE MEALS AND HS SUBQ 03/20/20 06:30 06/18/20 06:29 03/21/20 21:12 Insulin Aspart (NovoLOG) 6 units NOVOTIAC SUBQ 03/20/20 16:50 06/18/20 16:49 03/21/20 17:08 Insulin Detemir (Levemir) 18 units DAILY SUBQ 03/20/20 15:00 06/18/20 14:59 03/21/20 08:53 Lactulose (Cephulac) 20 gm BID ORAL 03/21/20 09:00 04/20/20 08:59 03/21/20 17:02 Morphine Sulfate (Morphine Sulfate) 2 mg Q4H PRN IVP For Pain 03/20/20 00:15 03/27/20 00:14 03/20/20 21:20 Pantoprazole (Protonix) 40 mg EVERY 12 HOURS ORAL 03/21/20 21:00 04/20/20 20:59 03/21/20 21:01 Spironolactone (Aldactone) 50 mg DAILY ORAL 03/20/20 10:00 04/19/20 09:59 03/21/20 08:54 Vancomycin HCl 250 ml @ 167.007 mls/hr Q8HR IVPB 03/21/20 14:00 03/26/20 13:59 03/22/20 05:28 Vancomycin HCl (Vanco pharmacy to dose) 1 ea DAILY PRN MISC Per rx protocol 03/20/20 11:00 04/19/20 10:59 Assessment/Plan Problem List: (1) COVID-19 ICD Codes: U07.1 - COVID-19 SNOMED: 472002452 (2) Pneumonia due to COVID-19 virus ICD Codes: U07.1 - COVID-19; J12.89 - Other viral pneumonia SNOMED: 605860071260288940 (3) Hyperglycemia ICD Codes: R73.9 - Hyperglycemia, unspecified SNOMED: 51719739 Status: unchanged Assessment/Plan: continue Levemir 18 units daily continue Novolog 6 units ac tid continue Novolog sliding scale ac / hs Wellington Foster MD Mar 22, 2020 06:34
--- NOTE | 2020-03-22 06:52 | NUR ---
NURSE HAND-OFF: Important Events on Shift:none Patient Status: stable Diet: CCHO M Pending Orders: paracentesis Pending Results/Labs:AM labs Pending MD notification:N Latest Vital Signs: Temperature 97.9 , Pulse 90 , B/P 144 /93 , Respiratory Rate 20 , O2 SAT 96 , Room Air, O2 Flow Rate . Vital Sign Comment: [] Latest Gutierrez Fall Score: 20 Fall Risk: Low Risk Safety Measures: Call light Within Reach, Bed Alarm Zone 1, Side Rails Side Rails x2, Bed position Low and Locked. Fall Precautions: Patient Fall Education
--- NOTE | 2020-03-22 07:10 | NUR ---
NURSE NOTES: Received patient in bed, patient awake, alert, oriented x4 no sign of distress, on room air, ambulatory.noted abdomen distended HL intact and patent. Bed locked, lowest position, side rails up, alarm on, call light within reach. Will continue to monitor. LUCIEN MOORE
--- NOTE | 2020-03-22 07:13 | Hematology/Onc Progress Note ---
Assessment/Plan Assessment/Plan Assessment and Recs # Thrombocytopenia - potential causes multifactorial, does endorse a hx of alcoholic cirrhosis --> hiv and hep thus far neg --> CT 2. Cirrhosis of the liver. 3. 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 --> Peripheral smear ordered to evaluate for blasts /schistocytes --> abx and other meds have been reviewed --> ok for ppx if plt >50k w/ either heparin or lovenox --> Transfuse if Plt < 20k and fever, or if Plt < 10k without fever -> pl;t 83-->91 # Anemia that is due to LGI bleed --> r'o variceal bleed --> per gi endscopy prn --> ppi as needed # Leukocytosis is due to Bilateral pna with COVID-19 --> ABX vanc/ctx --> smear is reviewed # Hyperglycemia -> iss and accuchecks as needed # Ascites due to alcoholic cirrhosis # Dvt ppx scds The timing of this note does not necessarily reflect the time of the patient was seen. Greatly appreciate consultation. Subjective HEENT: Denies: no symptoms, eye pain, blurred vision, tearing, double vision, ear pain, ear discharge, nose pain, nose congestion, throat pain, throat swelling, mouth pain, mouth swelling, other Cardiovascular: Denies: no symptoms, chest pain, edema, irregular heart rate, lightheadedness, palpitations, syncope, other Respiratory: Denies: no symptoms, cough, shortness of breath, SOB with excertion, SOB at rest, sputum, wheezing, other Gastrointestinal/Abdominal: Denies: no symptoms, abdomen distended, abdominal pain, black stools, tarry stools, blood in stool, constipated, diarrhea, difficulty swallowing, nausea, poor appetite, poor fluid intake, rectal blee ding, vomiting, other Genitourinary: Denies: no symptoms, burning, discharge, frequency, flank pain, hematuria, incontinence, pain, urgency, other Neurologic/Psychiatric: Denies: no symptoms, anxiety, depressed, emotional problems, headache, numbness, paresthesia, pre-existing deficit, seizure, tingling, tremors, weakness, other Endocrine: Denies: no symptoms, excessive sweating, flushing, intolerance to cold, intolerance to heat, increased hunger, increased thirst, increased urine, unexplained weight gain, unexplained weight loss, other Hematologic/Lymphatic: Denies: no symptoms, anemia, easy bleeding, easy bruising, adenopathy, other Allergies: Coded Allergies: No Known Allergies (Unverified , 03/07/20) Subjective 03/22 for paracentesis to be done, no bleeding, no night sweats Objective Objective Current Medications Medications (Trade) Dose Ordered Sig/Sharmaine Route PRN Reason Start Time Stop Time Status Last Admin Dose Admin Ceftriaxone Sodium 1 gm/ Dextrose 55 ml @ 110 mls/hr Q24H IVPB 03/20/20 12:00 03/27/20 11:59 03/21/20 12:13 Dextrose (Dextrose 50%) 25 ml Q30M PRN IV Hypoglycemia 03/20/20 00:30 06/18/20 00:29 Dextrose (Dextrose 50%) 50 ml Q30M PRN IV Hypoglycemia 03/20/20 00:30 06/18/20 00:29 Furosemide (Lasix) 20 mg DAILY IV 03/20/20 10:00 04/19/20 09:59 03/21/20 08:37 Insulin Aspart (NovoLOG) BEFORE MEALS AND HS SUBQ 03/20/20 06:30 06/18/20 06:29 03/21/20 21:12 Insulin Aspart (NovoLOG) 6 units NOVOTIAC SUBQ 03/20/20 16:50 06/18/20 16:49 03/21/20 17:08 Insulin Detemir (Levemir) 18 units DAILY SUBQ 03/20/20 15:00 06/18/20 14:59 03/21/20 08:53 Lactulose (Cephulac) 20 gm BID ORAL 03/21/20 09:00 04/20/20 08:59 03/21/20 17:02 Morphine Sulfate (Morphine Sulfate) 2 mg Q4H PRN IVP For Pain 03/20/20 00:15 03/27/20 00:14 03/20/20 21:20 Pantoprazole (Protonix) 40 mg EVERY 12 HOURS ORAL 03/21/20 21:00 04/20/20 20:59 03/21/20 21:01 Spironolactone (Aldactone) 50 mg DAILY ORAL 03/20/20 10:00 04/19/20 09:59 03/21/20 08:54 Vancomycin HCl 250 ml @ 167.007 mls/hr Q8HR IVPB 03/21/20 14:00 03/26/20 13:59 03/22/20 05:28 Vancomycin HCl (Vanco pharmacy to dose) 1 ea DAILY PRN MISC Per rx protocol 03/20/20 11:00 04/19/20 10:59 Last 24 Hour Vital Signs Date Time Temp Pulse Resp B/P (MAP) Pulse Ox O2 Delivery O2 Flow Rate FiO2 03/22/20 04:00 97.9 90 20 144/93 (110) 96 03/22/20 00:00 98.1 81 18 144/98 (113) 96 03/21/20 20:39 Room Air 03/21/20 20:00 97.5 85 18 148/101 (117) 95 03/21/20 16:00 98.2 92 20 153/97 (115) 99 03/21/20 12:00 98.2 97 20 147/101 (116) 96 03/21/20 09:00 Room Air 03/21/20 08:00 98.1 102 21 143/99 (114) 97 03/21/20 04:00 98.1 81 20 150/99 (116) 96 03/21/20 00:00 99.0 87 20 145/95 (112) 98 03/20/20 21:00 Room Air 03/20/20 20:00 99.1 81 20 146/101 (116) 97 03/20/20 16:00 98.1 89 18 148/76 (100) 98 03/20/20 11:34 96.0 97 17 142/86 (104) 96 03/20/20 09:00 Room Air 03/20/20 08:00 98.2 78 18 147/98 (114) 97 Intake and Output 03/21/20 03/22/20 19:00 07:00 Intake Total 590 ml Balance 590 ml Intake Oral 480 ml IV Total 110 ml # Voids 5 2 # Bowel Movements 2 2 Labs Test 03/19/20 20:15 03/19/20 20:55 03/19/20 22:52 03/20/20 05:26 White Blood Count 12.9 K/UL (4.8-10.8) Red Blood Count 4.28 M/UL (4.70-6.10) Hemoglobin 15.0 G/DL (14.2-18.0) Hematocrit 45.9 % (42.0-52.0) Mean Corpuscular Volume 107 FL (80-99) Mean Corpuscular Hemoglobin 35.0 PG (27.0-31.0) Mean Corpuscular Hemoglobin Concent 32.7 G/DL (32.0-36.0) Red Cell Distribution Width 13.1 % (11.6-14.8) Platelet Count 83 K/UL (150-450) Mean Platelet Volume 14.2 FL (6.5-10.1) Neutrophils (%) (Auto) % (45.0-75.0) Lymphocytes (%) (Auto) % (20.0-45.0) Monocytes (%) (Auto) % (1.0-10.0) Eosinophils (%) (Auto) % (0.0-3.0) Basophils (%) (Auto) % (0.0-2.0) Differential Total Cells Counted 100 Neutrophils % (Manual) 73 % (45-75) Lymphocytes % (Manual) 18 % (20-45) Monocytes % (Manual) 6 % (1-10) Eosinophils % (Manual) 3 % (0-3) Basophils % (Manual) 0 % (0-2) Band Neutrophils 0 % (0-8) Platelet Estimate Decreased Platelet Morphology Normal Macrocytosis 1+ Prothrombin Time 12.7 SEC (9.30-11.50) Prothromb Time International Ratio 1.2 (0.9-1.1) Activated Partial Thromboplast Time 26 SEC (23-33) Sodium Level 134 MMOL/L (136-145) Potassium Level 3.9 MMOL/L (3.5-5.1) Chloride Level 101 MMOL/L (98-107) Carbon Dioxide Level 30 MMOL/L (21-32) Anion Gap 4 mmol/L (5-15) Blood Urea Nitrogen 11 mg/dL (7-18) Creatinine 1.0 MG/DL (0.55-1.30) Estimat Glomerular Filtration Rate > 60 mL/min (>60) Glucose Level 504 MG/DL (74-106) Calcium Level 7.9 MG/DL (8.5-10.1) Total Bilirubin 0.7 MG/DL (0.2-1.0) Aspartate Amino Transf (AST/SGOT) 77 U/L (15-37) Alanine Aminotransferase (ALT/SGPT) 125 U/L (12-78) Alkaline Phosphatase 296 U/L (46-116) Total Protein 5.8 G/DL (6.4-8.2) Albumin 2.5 G/DL (3.4-5.0) Globulin 3.3 g/dL Albumin/Globulin Ratio 0.8 (1.0-2.7) Lipase 368 U/L (73-393) Urine Color Pale yellow Urine Appearance Clear Urine pH 6.5 (4.5-8.0) Urine Specific [place] 1.005 (1.005-1.035) Urine Protein Negative (NEGATIVE) Urine Glucose (UA) 4+ (NEGATIVE) Urine Ketones Negative (NEGATIVE) Urine Blood Negative (NEGATIVE) Urine Nitrite Negative (NEGATIVE) Urine Bilirubin Negative (NEGATIVE) Urine Urobilinogen Normal MG/DL (0.0-1.0) Urine Leukocyte Esterase Negative (NEGATIVE) POC Whole Blood Glucose 338 MG/DL (74-106) 259 MG/DL (74-106) Test 03/20/20 06:00 03/20/20 11:22 03/20/20 16:00 03/20/20 20:43 White Blood Count 13.0 K/UL (4.8-10.8) Red Blood Count 3.84 M/UL (4.70-6.10) Hemoglobin 13.3 G/DL (14.2-18.0) Hematocrit 39.9 % (42.0-52.0) Mean Corpuscular Volume 104 FL (80-99) Mean Corpuscular Hemoglobin 34.6 PG (27.0-31.0) Mean Corpuscular Hemoglobin Concent 33.3 G/DL (32.0-36.0) Red Cell Distribution Width 12.9 % (11.6-14.8) Platelet Count 83 K/UL (150-450) Mean Platelet Volume 14.5 FL (6.5-10.1) Neutrophils (%) (Auto) % (45.0-75.0) Lymphocytes (%) (Auto) % (20.0-45.0) Monocytes (%) (Auto) % (1.0-10.0) Eosinophils (%) (Auto) % (0.0-3.0) Basophils (%) (Auto) % (0.0-2.0) Differential Total Cells Counted 100 Neutrophils % (Manual) 71 % (45-75) Lymphocytes % (Manual) 28 % (20-45) Monocytes % (Manual) 1 % (1-10) Eosinophils % (Manual) 0 % (0-3) Basophils % (Manual) 0 % (0-2) Band Neutrophils 0 % (0-8) Platelet Estimate Decreased Platelet Morphology Normal Macrocytosis 1+ Sodium Level 139 MMOL/L (136-145) Potassium Level 3.7 MMOL/L (3.5-5.1) Chloride Level 106 MMOL/L (98-107) Carbon Dioxide Level 28 MMOL/L (21-32) Anion Gap 5 mmol/L (5-15) Blood Urea Nitrogen 9 mg/dL (7-18) Creatinine 0.8 MG/DL (0.55-1.30) Estimat Glomerular Filtration Rate > 60 mL/min (>60) Glucose Level 264 MG/DL (74-106) Hemoglobin A1c 8.9 % (4.3-6.0) Calcium Level 7.8 MG/DL (8.5-10.1) Total Bilirubin 0.6 MG/DL (0.2-1.0) Aspartate Amino Transf (AST/SGOT) 66 U/L (15-37) Alanine Aminotransferase (ALT/SGPT) 102 U/L (12-78) Alkaline Phosphatase 236 U/L (46-116) Total Protein 5.1 G/DL (6.4-8.2) Albumin 2.1 G/DL (3.4-5.0) Globulin 3.0 g/dL Albumin/Globulin Ratio 0.7 (1.0-2.7) POC Whole Blood Glucose 313 MG/DL (74-106) 293 MG/DL (74-106) 257 MG/DL (74-106) Test 03/21/20 04:00 03/21/20 11:57 03/21/20 12:40 03/21/20 17:00 White Blood Count 11.4 K/UL (4.8-10.8) Red Blood Count 3.76 M/UL (4.70-6.10) Hemoglobin 13.2 G/DL (14.2-18.0) Hematocrit 38.8 % (42.0-52.0) Mean Corpuscular Volume 103 FL (80-99) Mean Corpuscular Hemoglobin 35.2 PG (27.0-31.0) Mean Corpuscular Hemoglobin Concent 34.1 G/DL (32.0-36.0) Red Cell Distribution Width 12.9 % (11.6-14.8) Platelet Count 91 K/UL (150-450) Mean Platelet Volume 11.5 FL (6.5-10.1) Neutrophils (%) (Auto) % (45.0-75.0) Lymphocytes (%) (Auto) % (20.0-45.0) Monocytes (%) (Auto) % (1.0-10.0) Eosinophils (%) (Auto) % (0.0-3.0) Basophils (%) (Auto) % (0.0-2.0) Differential Total Cells Counted 100 Neutrophils % (Manual) 73 % (45-75) Lymphocytes % (Manual) 15 % (20-45) Monocytes % (Manual) 10 % (1-10) Eosinophils % (Manual) 2 % (0-3) Basophils % (Manual) 0 % (0-2) Band Neutrophils 0 % (0-8) Platelet Estimate Decreased Platelet Morphology Normal Hypochromasia 1+ Macrocytosis 1+ Sodium Level 138 MMOL/L (136-145) Potassium Level 3.5 MMOL/L (3.5-5.1) Chloride Level 105 MMOL/L (98-107) Carbon Dioxide Level 25 MMOL/L (21-32) Anion Gap 8 mmol/L (5-15) Blood Urea Nitrogen 7 mg/dL (7-18) Creatinine 0.6 MG/DL (0.55-1.30) Estimat Glomerular Filtration Rate > 60 mL/min (>60) Glucose Level 139 MG/DL (74-106) Calcium Level 7.9 MG/DL (8.5-10.1) Total Bilirubin 0.9 MG/DL (0.2-1.0) Aspartate Amino Transf (AST/SGOT) 79 U/L (15-37) Alanine Aminotransferase (ALT/SGPT) 105 U/L (12-78) Alkaline Phosphatase 199 U/L (46-116) Ammonia 60 umol/L (11-32) Total Protein 5.7 G/DL (6.4-8.2) Albumin 2.3 G/DL (3.4-5.0) Globulin 3.4 g/dL Albumin/Globulin Ratio 0.7 (1.0-2.7) HIV (1&2) Antibody Rapid Negative (NEGATIVE) Vancomycin Level Trough 5.9 ug/mL (5.0-12.0) Test 03/21/20 21:04 03/22/20 05:35 Height (Feet): 5 Height (Inches): 5.00 Weight (Pounds): 250 Objective Physical Exam Sp02 EP Interpretation: reviewed, normal General: no apparent distress Head: normocephalic, atraumatic Eyes: bilateral eye normal inspection, bilateral eye PERRL ENT: hearing grossly normal, normal pharynx, no angioedema, normal voice Neck: full range of motion, supple/symm/no masses Respiratory: chest non-tender, lungs clear, normal breath sounds, speaking full sentences Cardiovascular: regular rate, rhythm, no edema Gastrointestinal: normal bowel sounds, no guarding Rectal: deferred Genitourinary: normal inspection, no CVA tenderness Neurologic: alert, motor strength/tone normal, oriented x3, sensory intact, responsive, speech normal Skin: no rash Lymphatic: no adenopathy Yunier Marquez MD Mar 22, 2020 07:13
--- NOTE | 2020-03-22 07:27 | NUR ---
HAND-OFF: Report given to Gabriela.
[2020-03-22 07:35] LABS: MEAN CORPUSCULAR VOLUME 104 FL (80-99); PLATELET COUNT 86 K/UL (150-450); RED BLOOD COUNT 4.03 M/UL (4.70-6.10); RED CELL DISTRIBUTION WIDTH 12.9 % (11.6-14.8); WHITE BLOOD COUNT 9.8 K/UL (4.8-10.8)
[2020-03-22 07:56] VITALS: BP 150/97
[2020-03-22 07:56] LABS: AMMONIA 44 umol/L (11-32)
[2020-03-22 07:58] LABS: ALANINE AMINOTRANSFERASE 118 U/L (12-78); ALBUMIN 2.4 G/DL (3.4-5.0); ALBUMIN/GLOBULIN RATIO 0.6 (1.0-2.7); ALKALINE PHOSPHATASE 198 U/L (46-116); ANION GAP 8 mmol/L (5-15); ASPARTATE AMINO TRANSFERASE 101 U/L (15-37); BILIRUBIN,TOTAL 0.9 MG/DL (0.2-1.0); BLOOD UREA NITROGEN 6 mg/dL (7-18); CALCIUM 8.3 MG/DL (8.5-10.1); CARBON DIOXIDE 24 MMOL/L (21-32); CHLORIDE 109 MMOL/L (98-107); CREATININE 0.8 MG/DL (0.55-1.30); POTASSIUM 4.2 MMOL/L (3.5-5.1); SODIUM 141 MMOL/L (136-145)
[2020-03-22] MEDS: Lactulose 20gm/30ml UDC ORAL SCH ×2 (08:27→17:01)
[2020-03-22] MEDS: Spironolactone 50mg tab ORAL SCH (08:28)
[2020-03-22] MEDS: Levemir Flexpen SUBQ SCH (08:29)
--- NOTE | 2020-03-22 10:47 | General Progress Note ---
Subjective ROS Limited/Unobtainable: Yes Allergies: Coded Allergies: No Known Allergies (Unverified , 03/07/20) Objective Last 24 Hour Vital Signs Date Time Temp Pulse Resp B/P (MAP) Pulse Ox O2 Delivery O2 Flow Rate FiO2 03/22/20 08:21 Room Air 03/22/20 07:56 97.7 88 20 150/97 (114) 95 03/22/20 04:00 97.9 90 20 144/93 (110) 96 03/22/20 00:00 98.1 81 18 144/98 (113) 96 03/21/20 20:39 Room Air 03/21/20 20:00 97.5 85 18 148/101 (117) 95 03/21/20 16:00 98.2 92 20 153/97 (115) 99 03/21/20 12:00 98.2 97 20 147/101 (116) 96 Intake and Output 03/21/20 03/22/20 19:00 07:00 Intake Total 590 ml Balance 590 ml Intake Oral 480 ml IV Total 110 ml # Voids 5 2 # Bowel Movements 2 2 Laboratory Tests 03/21/20 11:57: POC Whole Blood Glucose [Pending] 03/21/20 12:40: Vancomycin Level Trough 5.9 03/21/20 17:00: POC Whole Blood Glucose [Pending] 03/21/20 21:04: POC Whole Blood Glucose [Pending] 03/22/20 04:00: White Blood Count 9.8, Red Blood Count 4.03L, Hemoglobin 14.0L, Hematocrit 42.0, Mean Corpuscular Volume 104H, Mean Corpuscular Hemoglobin 34.9H, Mean Corpuscular Hemoglobin Concent 33.5, Red Cell Distribution Width 12.9, Platelet Count 86L, Mean Platelet Volume 11.9H, Neutrophils (%) (Auto) , Lymphocytes (%) (Auto) , Monocytes (%) (Auto) , Eosinophils (%) (Auto) , Basophils (%) (Auto) , Differential Total Cells Counted 100, Neutrophils % (Manual) 65, Lymphocytes % (Manual) 27, Monocytes % (Manual) 6, Eosinophils % (Manual) 2, Basophils % (Manual) 0, Band Neutrophils 0, Platelet Estimate DecreasedL, Platelet Morphology Normal, Macrocytosis 1+, Sodium Level 141, Potassium Level 4.2, Chloride Level 109H, Carbon Dioxide Level 24, Anion Gap 8, Blood Urea Nitrogen 6L, Creatinine 0.8, Estimat Glomerular Filtration Rate > 60, Glucose Level 110H, Calcium Level 8.3L, Total Bilirubin 0.9, Aspartate Amino Transf (AST/SGOT) 101H , Alanine Aminotransferase (ALT/SGPT) 118H, Alkaline Phosphatase 198H, Ammonia 44H, Total Protein 6.2L, Albumin 2.4L, Globulin 3.8, Albumin/Globulin Ratio 0.6L 03/22/20 05:35: POC Whole Blood Glucose [Pending] Height (Feet): 5 Height (Inches): 5.00 Weight (Pounds): 250 Assessment/Plan Problem List: (1) Pneumonia ICD Codes: J18.9 - Pneumonia, unspecified organism SNOMED: 483667646 (2) Hyperglycemia ICD Codes: R73.9 - Hyperglycemia, unspecified SNOMED: 39303776 (3) LGI bleed ICD Codes: K92.2 - Gastrointestinal hemorrhage, unspecified SNOMED: 86918855 (4) Ascites due to alcoholic cirrhosis ICD Codes: K70.31 - Alcoholic cirrhosis of liver with ascites SNOMED: 2694600275986236 (5) Pneumonia due to COVID-19 virus ICD Codes: U07.1 - COVID-19; J12.89 - Other viral pneumonia SNOMED: 153225000222198066 (6) COVID-19 ICD Codes: U07.1 - COVID-19 SNOMED: 790130022 Status: progressing, unchanged Assessment/Plan: r/o gi bleed covid positive consulted dr bernadette lyle h/h stable cirrhosis reviewed chart Ricki Brown MD Mar 22, 2020 10:47
[2020-03-22] MEDS: cefTRIAXone 1 GM in D5W 55 ML IVPB SCH (11:24)
[2020-03-22 12:00] VITALS: BP 148/86
--- NOTE | 2020-03-22 13:04 | NUR ---
RD ASSESSMENT & RECOMMENDATIONS SEE CARE ACTIVITY FOR COMPLETE ASSESSMENT DAILY ESTIMATED NEEDS: Needs based on Liver, DM, pulmonary 68.6kg abw 25-30 kcals/kg total kcals 1-1.5 g protein/kg 69-103 g total protein 25-30 mL/kg total fluid mLs NUTRITION DIAGNOSIS: Altered nutrition related lab values r/t diabetes and cirrhosis as evidenced by A1C 8.9, BG 504 on adm, w/ dx ascites and portal HTN, elev ammonia (44) w/ elev LFT's/ CURRENT DIET: [facility] MED PO DIET RECOMMENDATIONS: [facility] MED / CARDIAC diet ADDITIONAL RECOMMENDATIONS: 1) Obtain accurate daily wts, on lasix 2) Monitor lytes daily, replete as needed -> Add B-complex 1 tab daily 3) Monitor for hypoglycemia, no episodes at this time
--- NOTE | 2020-03-22 15:05 | Pre-Procedure Note/Attestation ---
Pre-Procedure Note/Attestation Complete Prior to Procedure Planned Procedure: not applicable Procedure Narrative: paracentesis Indications for Procedure Pre-Operative Diagnosis: ascites Attestation I attest that I discussed the nature of the procedure; its benefits; risks and complications; and alternatives (and the risks and benefits of such alternatives), prior to the procedure, with the patient (or the patient's legal patient financial representative). I attest that, if there was a reasonable possibility of needing a blood moses sfusion, the patient (or the patient's legal patient financial representative) was given the [facility] standardized written summary, pursuant to the Michael Shea Blood Safety Act ([place] Health and Safety Code # 1645, as amended). I attest that I re-evaluated the patient just prior to the surgery and that there has been no change in the patient's H&P, except as documented below: Rickey Griffith MD Mar 22, 2020 15:05
--- NOTE | 2020-03-22 15:07 | Brief Operative Note ---
Immediate Post Operative Note Operative Note Pre-op Diagnosis: ascites Procedure: paracentesis Surgeon: Olimpia GRIFFITH Anesthesia: local Specimen: yes - 50 ml fluid sent to lab Complications: none Fluids: none Implant(s) used?: No Rickey Griffith MD Mar 22, 2020 15:07
[2020-03-22 15:48] VITALS: BP 145/72
--- NOTE | 2020-03-22 16:06 | Infectious Diseases Prog Note ---
Assessment/Plan Assessment/Plan: 39 yo male with with PMHx of DM and COVID 19 Dx 03/08/20 who presented to the ED on 03/19/20 with blood in his stool and abdominal pain. Leukocytosis- SP Ascities- r/o SBP -03/22 sp paracentesis -CT abd/p: There is moderate abdominal and pelvic ascites. Cirrhosis of the liver. 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 No other acute findings. No fever Abdominal Pain COVID 19 Stable on RA SARS COV 2 PCR Pos 03/07/20 and 03/19/20 CXR 03/19/20 Improved B/L Infiltrates Elevated LFts; increased -HIV ab screen neg, Acute hep panel p DM Cirrhosis seen on CT PLAN - Cont Ceftriaxone #3 pending ascites fluid -dc empiric Vancomycin #3 - f/u Cx - COVID 19 Iso for now- not candidate for Remdesivir according to [facility] [place] COVID task force internal guidelines- need to be on supplemental O2 - Monitor Respiratory status - f/u GI recs for GI Bleed Thank you for this consult. [facility] will continue to follow Mr. Banuelos with you. Subjective Allergies: Coded Allergies: No Known Allergies (Unverified , 03/07/20) afebrile at RA LFts increased Objective Last 24 Hour Vital Signs Date Time Temp Pulse Resp B/P (MAP) Pulse Ox O2 Delivery O2 Flow Rate FiO2 03/22/20 15:48 97.5 71 18 145/72 (96) 96 03/22/20 12:00 97.9 91 18 148/86 (106) 95 03/22/20 08:21 Room Air 03/22/20 07:56 97.7 88 20 150/97 (114) 95 03/22/20 04:00 97.9 90 20 144/93 (110) 96 03/22/20 00:00 98.1 81 18 144/98 (113) 96 03/21/20 20:39 Room Air 03/21/20 20:00 97.5 85 18 148/101 (117) 95 03/21/20 16:00 98.2 92 20 153/97 (115) 99 Height (Feet): 5 Height (Inches): 5.00 Weight (Pounds): 250 GEN: NAD on RA HEENT: NCAT, MMM, EOMI, No Scleral icterus, Neck: No LAD, Supple LUNGS: CTAB, No W HEART: RRR, S1, S2. ABD: Soft, NT, Mild Distension Skin: No rash,, Normal in color NEURO: A/O x 4, No focal deficits Microbiology Date/Time Source Procedure Growth Status 03/19/20 22:13 Rectum - Final NO CARBAPENEM-RESISTANT ENTEROBACTERI... Complete 03/19/20 22:13 Rectal Mucosa VRE Culture - Final Enterococcus Faecium - Vre Complete 03/19/20 22:13 Nasal Nares MRSA Culture - Final NO METHICILLIN RESISTANT STAPH AUREUS... Complete 03/19/20 20:51 Nasopharynx SARS-CoV-2 RdRp Gene Assay - Final Complete Laboratory Tests Test 03/21/20 17:00 03/21/20 21:04 03/22/20 04:00 03/22/20 05:35 POC Whole Blood Glucose Pending Pending Pending White Blood Count 9.8 K/UL (4.8-10.8) Red Blood Count 4.03 M/UL (4.70-6.10) L Hemoglobin 14.0 G/DL (14.2-18.0) L Hematocrit 42.0 % (42.0-52.0) Mean Corpuscular Volume 104 FL (80-99) H Mean Corpuscular Hemoglobin 34.9 PG (27.0-31.0) H Mean Corpuscular Hemoglobin Concent 33.5 G/DL (32.0-36.0) Red Cell Distribution Width 12.9 % (11.6-14.8) Platelet Count 86 K/UL (150-450) L Mean Platelet Volume 11.9 FL (6.5-10.1) H Neutrophils (%) (Auto) % (45.0-75.0) Lymphocytes (%) (Auto) % (20.0-45.0) Monocytes (%) (Auto) % (1.0-10.0) Eosinophils (%) (Auto) % (0.0-3.0) Basophils (%) (Auto) % (0.0-2.0) Differential Total Cells Counted 100 Neutrophils % (Manual) 65 % (45-75) Lymphocytes % (Manual) 27 % (20-45) Monocytes % (Manual) 6 % (1-10) Eosinophils % (Manual) 2 % (0-3) Basophils % (Manual) 0 % (0-2) Band Neutrophils 0 % (0-8) Platelet Estimate Decreased L Platelet Morphology Normal Macrocytosis 1+ Sodium Level 141 MMOL/L (136-145) Potassium Level 4.2 MMOL/L (3.5-5.1) Chloride Level 109 MMOL/L (98-107) H Carbon Dioxide Level 24 MMOL/L (21-32) Anion Gap 8 mmol/L (5-15) Blood Urea Nitrogen 6 mg/dL (7-18) L Creatinine 0.8 MG/DL (0.55-1.30) Estimat Glomerular Filtration Rate > 60 mL/min (>60) Glucose Level 110 MG/DL (74-106) H Calcium Level 8.3 MG/DL (8.5-10.1) L Total Bilirubin 0.9 MG/DL (0.2-1.0) Aspartate Amino Transf (AST/SGOT) 101 U/L (15-37) H Alanine Aminotransferase (ALT/SGPT) 118 U/L (12-78) H Alkaline Phosphatase 198 U/L (46-116) H Ammonia 44 umol/L (11-32) H Total Protein 6.2 G/DL (6.4-8.2) L Albumin 2.4 G/DL (3.4-5.0) L Globulin 3.8 g/dL Albumin/Globulin Ratio 0.6 (1.0-2.7) L Test 03/22/20 11:22 03/22/20 13:00 POC Whole Blood Glucose Pending Vancomycin Level Trough 11.2 ug/mL (5.0-12.0) Current Medications Medications (Trade) Dose Ordered Sig/Sharmaine Route PRN Reason Start Time Stop Time Status Last Admin Dose Admin Ceftriaxone Sodium 1 gm/ Dextrose 55 ml @ 110 mls/hr Q24H IVPB 03/20/20 12:00 03/27/20 11:59 03/22/20 11:24 Dextrose (Dextrose 50%) 25 ml Q30M PRN IV Hypoglycemia 03/20/20 00:30 06/18/20 00:29 Dextrose (Dextrose 50%) 50 ml Q30M PRN IV Hypoglycemia 03/20/20 00:30 06/18/20 00:29 Furosemide (Lasix) 20 mg DAILY IV 03/20/20 10:00 04/19/20 09:59 03/22/20 08:27 Insulin Aspart (NovoLOG) BEFORE MEALS AND HS SUBQ 03/20/20 06:30 06/18/20 06:29 03/22/20 13:09 Insulin Aspart (NovoLOG) 6 units NOVOTIAC SUBQ 03/20/20 16:50 06/18/20 16:49 03/22/20 13:10 Insulin Detemir (Levemir) 18 units DAILY SUBQ 03/20/20 15:00 06/18/20 14:59 03/22/20 08:29 Lactulose (Cephulac) 20 gm BID ORAL 03/21/20 09:00 04/20/20 08:59 03/22/20 08:27 Morphine Sulfate (Morphine Sulfate) 2 mg Q4H PRN IVP For Pain 03/20/20 00:15 03/27/20 00:14 03/20/20 21:20 Pantoprazole (Protonix) 40 mg EVERY 12 HOURS ORAL 03/21/20 21:00 04/20/20 20:59 03/22/20 08:28 Spironolactone (Aldactone) 50 mg DAILY ORAL 03/20/20 10:00 04/19/20 09:59 03/22/20 08:28 Vancomycin HCl 250 ml @ 167.007 mls/hr Q8HR IVPB 03/21/20 14:00 03/26/20 13:59 03/22/20 14:25 Vancomycin HCl (Vanco pharmacy to dose) 1 ea DAILY PRN MISC Per rx protocol 03/20/20 11:00 04/19/20 10:59 Leena Marie M.D. Mar 22, 2020 16:06
--- NOTE | 2020-03-22 16:40 | NUR ---
CASE MANAGEMENT:REVIEW 03/22/20 SI;ASCITES. COVID PNEUMONIA. S/P PARACENTESIS TODAY ~ 50 ML ASPIRATED 98.1 91 20 150/97 95% ON RA AST 101 ALT 118 ALP 198 AMMONIA 44 ALB 2.1 IS;PROTONIX PO Q12 VANCOMYCIN IV LACTULOSE PO BID ROCEPHIN IV ALDACTONE PO LASIX IV MED SURG STATUS DCP;FROM [facility] CASE MANAGEMENT:REVIEW 03/21/20 SI;HYPERGLYCEMIA. COVID PNEUMONIA. ASCITES. 98.2 102 21 153/97 95% ON RA WBC 11.4 BG 139 AST 79 ALT 105 ALP 199 AMMONIA 60 ALB 2.3 IS;LASIX IV ALDACTONE O ROCEPHIN IV INSULIN LEVEMIR SUBQ VANCOMYCIN IV LACTULOSE PROTONIX PO MED SURG STATUS DCP;FROM [facility] CASE MANAGEMENT:INITIAL REVIEW 03/20/20 39 YR OLD MALE BIBA FROM [facility] CC;ABDOMINAL PAIN SI;LOWER GI BLEED. COVID PNEUMONIA. 98.4 82 17 136/71 97% ON RA WBC 12.9 PLT 83 NA 134 BG 504 CA 7.9 AST 77 ALT 125 ALP 296 ALB 2.5 PT 12.7 INR 1.2 UA+ GLUCOSE COVID RAPID ~ POSITIVE ABD/PELVIS CT ~ 1. There is moderate abdominal and pelvic ascites. 2. Cirrhosis of the liver. 3. 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 4. No other acute findings. CXR ~ Interval improvement with decrease in bilateral pneumonia. IS;IVF NS BOLUS INSULIN REGULAR IV ADMITTED TO MED SURG MED SURG STATUS DCP;FROM [facility]
--- NOTE | 2020-03-22 16:44 | Diagnostic Imaging Report ---
Indications: Ascites Technique: Ultrasound used to localize optimal puncture site. Sterile prepping and draping left lower pole. Local anesthesia with 1% lidocaine. Under real-time ultrasound guidance, puncture peritoneal space using paracentesis needle. Stylet removed. Catheter placed to vacuum bottle suction. Total 1.25 liters of fluid aspirated. Patient tolerated procedure well, without immediate complication. Findings: Followup sonography demonstrates complete resolution of peritoneal fluid. Impression: Successful ultrasound-guided paracentesis, yielding 1.25 liters of fluid
--- NOTE | 2020-03-22 18:41 | NUR ---
NURSE HAND-OFF: Important Events on Shift:[US parasentesis done at bedside] Patient Status: [stable] Diet: [CCD M] Pending Orders: [none] Pending Results/Labs:[none] Pending MD notification:[none] Latest Vital Signs: Temperature 97.5 , Pulse 71 , B/P 145 /72 , Respiratory Rate 18 , O2 SAT 96 , Room Air, O2 Flow Rate . Vital Sign Comment: [stable] Latest Gutierrez Fall Score: 20 Fall Risk: Low Risk Safety Measures: Call light Within Reach, Bed Alarm Zone 1, Side Rails Side Rails x2, Bed position Low and Locked. Fall Precautions: Patient Fall Education Report given to []. Addendum: 03/22/20 at 1940 by SHEILA ARSHAD RN RN NURSE HAND-OFF: Important Events on Shift:[US parasentesis done at bedside] Patient Status: [stable] Diet: [CCD M] Pending Orders: [none] Pending Results/Labs:[none] Pending MD notification:[none] Latest Vital Signs: Temperature 97.5 , Pulse 71 , B/P 145 /72 , Respiratory Rate 18 , O2 SAT 96 , Room Air, O2 Flow Rate . Vital Sign Comment: [stable] Latest Gutierrez Fall Score: 20 Fall Risk: Low Risk Safety Measures: Call light Within Reach, Bed Alarm Zone 1, Side Rails Side Rails x2, Bed position Low and Locked. Fall Precautions: Patient Fall Education Report given to [MS MALLORY MCGRAW].
--- NOTE | 2020-03-22 19:36 | NUR ---
NURSE NOTES: Received report from abdulkadir rojas. patient on bed, asleep. on room air. no sob. with right ac iv access, saline lock. per veda" patient is s/p paracentesis with insertion site on the left side; 1250 ml.denies any pain or discomfort. bed locked and in lowest position. call light and light button within easy reach. will continue plan of care.
[2020-03-22 20:00] VITALS: BP 134/76
[2020-03-22] MEDS: Morphine Sulfate 2mg/ml Inj(IV/IM USE ONLY) IVP PRN (21:09)
--- NOTE | 2020-03-22 21:30 | General Progress Note ---
Subjective Allergies: Coded Allergies: No Known Allergies (Unverified , 03/07/20) Subjective comfortable denies SOB no hematemesis Objective Last 24 Hour Vital Signs Date Time Temp Pulse Resp B/P (MAP) Pulse Ox O2 Delivery O2 Flow Rate FiO2 03/22/20 15:48 97.5 71 18 145/72 (96) 96 03/22/20 12:00 97.9 91 18 148/86 (106) 95 03/22/20 08:21 Room Air 03/22/20 07:56 97.7 88 20 150/97 (114) 95 03/22/20 04:00 97.9 90 20 144/93 (110) 96 03/22/20 00:00 98.1 81 18 144/98 (113) 96 Intake and Output 03/21/20 03/22/20 19:00 07:00 Intake Total 590 ml Balance 590 ml Intake Oral 480 ml IV Total 110 ml # Voids 5 2 # Bowel Movements 2 2 Laboratory Tests 03/22/20 04:00: White Blood Count 9.8, Red Blood Count 4.03L, Hemoglobin 14.0L, Hematocrit 42.0, Mean Corpuscular Volume 104H, Mean Corpuscular Hemoglobin 34.9H, Mean Corpuscular Hemoglobin Concent 33.5, Red Cell Distribution Width 12.9, Platelet Count 86L, Mean Platelet Volume 11.9H, Neutrophils (%) (Auto) , Lymphocytes (%) (Auto) , Monocytes (%) (Auto) , Eosinophils (%) (Auto) , Basophils (%) (Auto) , Differential Total Cells Counted 100, Neutrophils % (Manual) 65, Lymphocytes % (Manual) 27, Monocytes % (Manual) 6, Eosinophils % (Manual) 2, Basophils % (Manual) 0, Band Neutrophils 0, Platelet Estimate DecreasedL, Platelet Morphology Normal, Macrocytosis 1+, Sodium Level 141, Potassium Level 4.2, Chloride Level 109H, Carbon Dioxide Level 24, Anion Gap 8, Blood Urea Nitrogen 6L, Creatinine 0.8, Estimat Glomerular Filtration Rate > 60, Glucose Level 110H, Calcium Level 8.3L, Total Bilirubin 0.9, Aspartate Amino Transf (AST/SGOT) 101H, Alanine Aminotransferase (ALT/SGPT) 118H, Alkaline Phosphatase 198H, Ammonia 44H , Total Protein 6.2L, Albumin 2.4L, Globulin 3.8, Albumin/Globulin Ratio 0.6L 03/22/20 05:35: POC Whole Blood Glucose [Pending] 03/22/20 11:22: POC Whole Blood Glucose [Pending] 03/22/20 13:00: Vancomycin Level Trough 11.2 03/22/20 16:41: POC Whole Blood Glucose [Pending] Height (Feet): 5 Height (Inches): 5.00 Weight (Pounds): 250 Assessment/Plan Status: progressing, unchanged Assessment/Plan: Assessment - cirrhosis - abnormal LFT - presumed due to COVID - COVID infection Recommendations - follow LFT - await hepatitis serologies - d/c planning per PMD Markie Barahona MD Mar 22, 2020 21:30
[2020-03-23] VITALS: BP_SYST 132; BP_SYST 135; BP_DIAS 71; BP_DIAS 76
[2020-03-23 04:00] VITALS: BP 130/75
[2020-03-23] MEDS: NovoLOG Insulin Flexpen SUBQ SCH ×7 (05:42→21:00)
--- NOTE | 2020-03-23 06:24 | NUR ---
NURSE HAND-OFF: Important Events on Shift: PAIN MNGT, AFEBRILE,SAFETY, GLUCOSE MONITORING Patient Status: STABLE Diet: CCHO Pending Orders: Pending Results/Labs: Pending MD notification: Latest Vital Signs: Temperature 97.6 , Pulse 75 , B/P 130 /75 , Respiratory Rate 20 , O2 SAT 98 , Room Air, O2 Flow Rate . Vital Sign Comment: Latest Gutierrez Fall Score: 20 Fall Risk: Low Risk Safety Measures: Call light Within Reach, Bed Alarm Zone 1, Side Rails Side Rails x2, Bed position Low and Locked. Fall Precautions: Patient Fall Education
--- NOTE | 2020-03-23 06:29 | General Progress Note ---
Subjective Allergies: Coded Allergies: No Known Allergies (Unverified , 03/07/20) All Systems: reviewed and negative except above Subjective events noted interval notes reviewed glucose values are stable Item Value Date Time Bedside Blood Glucose 145 mg/dl H 03/23/20 0626 Bedside Blood Glucose 173 mg/dl H 03/22/20 2100 Bedside Blood Glucose 182 mg/dl H 03/22/20 1645 Bedside Blood Glucose 233 mg/dl H 03/22/20 1310 Bedside Blood Glucose 112 mg/dl 03/22/20 0829 Objective Last 24 Hour Vital Signs Date Time Temp Pulse Resp B/P (MAP) Pulse Ox O2 Delivery O2 Flow Rate FiO2 03/23/20 04:00 97.6 75 20 130/75 (93) 98 03/23/20 00:00 97.9 79 20 135/76 (95) 97 03/23/20 00:00 98.1 79 20 132/71 (91) 99 03/22/20 21:39 97.5 03/22/20 21:00 Room Air 03/22/20 20:00 97.9 76 20 134/76 (95) 98 03/22/20 15:48 97.5 71 18 145/72 (96) 96 03/22/20 12:00 97.9 91 18 148/86 (106) 95 03/22/20 08:21 Room Air 03/22/20 07:56 97.7 88 20 150/97 (114) 95 Intake and Output 03/22/20 03/23/20 19:00 07:00 Intake Total 850 ml 1200 ml Output Total 1250 ml Balance -400 ml 1200 ml Intake Oral 600 ml 1200 ml IV Total 250 ml Output Estimated Blood Loss 1250 ml # Voids 2 4 Laboratory Tests 03/22/20 11:22: POC Whole Blood Glucose [Pending] 03/22/20 13:00: Vancomycin Level Trough 11.2 03/22/20 16:41: POC Whole Blood Glucose [Pending] Height (Feet): 5 Height (Inches): 5.00 Weight (Pounds): 250 Objective Current Medications Medications (Trade) Dose Ordered Sig/Sharmaine Route PRN Reason Start Time Stop Time Status Last Admin Dose Admin Ceftriaxone Sodium 1 gm/ Dextrose 55 ml @ 110 mls/hr Q24H IVPB 03/20/20 12:00 03/27/20 11:59 03/22/20 11:24 Dextrose (Dextrose 50%) 25 ml Q30M PRN IV Hypoglycemia 03/20/20 00:30 06/18/20 00:29 Dextrose (Dextrose 50%) 50 ml Q30M PRN IV Hypoglycemia 03/20/20 00:30 06/18/20 00:29 Furosemide (Lasix) 20 mg DAILY IV 03/20/20 10:00 04/19/20 09:59 03/22/20 08:27 Insulin Aspart (NovoLOG) BEFORE MEALS AND HS SUBQ 03/20/20 06:30 06/18/20 06:29 03/23/20 05:42 Insulin Aspart (NovoLOG) 6 units NOVOTIAC SUBQ 03/20/20 16:50 06/18/20 16:49 03/23/20 05:44 Insulin Detemir (Levemir) 18 units DAILY SUBQ 03/20/20 15:00 06/18/20 14:59 03/22/20 08:29 Lactulose (Cephulac) 20 gm BID ORAL 03/21/20 09:00 04/20/20 08:59 03/22/20 17:01 Morphine Sulfate (Morphine Sulfate) 2 mg Q4H PRN IVP For Pain 03/20/20 00:15 03/27/20 00:14 03/22/20 21:09 Pantoprazole (Protonix) 40 mg EVERY 12 HOURS ORAL 03/21/20 21:00 04/20/20 20:59 03/22/20 20:57 Spironolactone (Aldactone) 50 mg DAILY ORAL 03/20/20 10:00 04/19/20 09:59 03/22/20 08:28 Vancomycin HCl 250 ml @ 167.007 mls/hr Q8HR IVPB 03/21/20 14:00 03/26/20 13:59 03/23/20 05:41 Vancomycin HCl (Vanco pharmacy to dose) 1 ea DAILY PRN MISC Per rx protocol 03/20/20 11:00 04/19/20 10:59 Assessment/Plan Problem List: (1) COVID-19 ICD Codes: U07.1 - COVID-19 SNOMED: 192736791 (2) Pneumonia due to COVID-19 virus ICD Codes: U07.1 - COVID-19; J12.89 - Other viral pneumonia SNOMED: 472661585004538724 (3) Hyperglycemia ICD Codes: R73.9 - Hyperglycemia, unspecified SNOMED: 95057637 Status: progressing, unchanged Assessment/Plan: continue Levemir 18 units daily continue Novolog 6 units ac tid continue Novolog sliding scale ac / hs Wellington Foster MD Mar 23, 2020 06:28
--- NOTE | 2020-03-23 06:54 | Hematology/Onc Progress Note ---
Assessment/Plan Assessment/Plan Assessment and Recs # Thrombocytopenia - potential causes multifactorial, does endorse a hx of alcoholic cirrhosis --> hiv and hep thus far neg --> CT 2. Cirrhosis of the liver. 3. 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 --> Peripheral smear ordered to evaluate for blasts /schistocytes --> abx and other meds have been reviewed --> ok for ppx if plt >50k w/ either heparin or lovenox --> Transfuse if Plt < 20k and fever, or if Plt < 10k without fever -> pl;t 83-->91-->87 # Anemia that is due to LGI bleed --> r'o variceal bleed --> per gi endscopy prn --> ppi as needed --> hgb 14 # Leukocytosis is due to Bilateral pna with COVID-19 --> ABX vanc/ctx --> smear is reviewed # Hyperglycemia -> iss and accuchecks as needed # Ascites due to alcoholic cirrhosis # Dvt ppx scds The timing of this note does not necessarily reflect the time of the patient was seen. Greatly appreciate consultation. Subjective Constitutional: Denies: no symptoms, chills, fever, malaise, weakness, other HEENT: Denies: no symptoms, eye pain, blurred vision, tearing, double vision, ear pain, ear discharge, nose pain, nose congestion, throat pain, throat swelling, mouth pain, mouth swelling, other Cardiovascular: Denies: no symptoms, chest pain, edema, irregular heart rate, lightheadedness, palpitations, syncope, other Respiratory: Denies: no symptoms, cough, shortness of breath, SOB with excertion, SOB at rest, sputum, wheezing, other Genitourinary: Denies: no symptoms, burning, discharge, frequency, flank pain, hematuria, incontinence, pain, urgency, other Neurologic/Psychiatric: Denies: no symptoms, anxiety, depressed, emotional problems, headache, numbness, paresthesia, pre-existing deficit, seizure, tingling, tremors, weakness, other Endocrine: Denies: no symptoms, excessive sweating, flushing, intolerance to cold, intolerance to heat, increased hunger, increased thirst, increased urine, unexplained weight gain, unexplained weight loss, other Hematologic/Lymphatic: Denies: no symptoms, anemia, easy bleeding, easy bruising, adenopathy, other Allergies: Coded Allergies: No Known Allergies (Unverified , 03/07/20) Subjective 03/22 for paracentesis to be done, no bleeding, no night sweats 03/23 labs reviewed, meds noted, no night sweats, plt lower Objective Objective Current Medications Medications (Trade) Dose Ordered Sig/Sharmaine Route PRN Reason Start Time Stop Time Status Last Admin Dose Admin Ceftriaxone Sodium 1 gm/ Dextrose 55 ml @ 110 mls/hr Q24H IVPB 03/20/20 12:00 03/27/20 11:59 03/22/20 11:24 Dextrose (Dextrose 50%) 25 ml Q30M PRN IV Hypoglycemia 03/20/20 00:30 06/18/20 00:29 Dextrose (Dextrose 50%) 50 ml Q30M PRN IV Hypoglycemia 03/20/20 00:30 06/18/20 00:29 Furosemide (Lasix) 20 mg DAILY IV 03/20/20 10:00 04/19/20 09:59 03/22/20 08:27 Insulin Aspart (NovoLOG) BEFORE MEALS AND HS SUBQ 03/20/20 06:30 06/18/20 06:29 03/23/20 05:42 Insulin Aspart (NovoLOG) 6 units NOVOTIAC SUBQ 03/20/20 16:50 06/18/20 16:49 03/23/20 05:44 Insulin Detemir (Levemir) 18 units DAILY SUBQ 03/20/20 15:00 06/18/20 14:59 03/22/20 08:29 Lactulose (Cephulac) 20 gm BID ORAL 03/21/20 09:00 04/20/20 08:59 03/22/20 17:01 Morphine Sulfate (Morphine Sulfate) 2 mg Q4H PRN IVP For Pain 03/20/20 00:15 03/27/20 00:14 03/22/20 21:09 Pantoprazole (Protonix) 40 mg EVERY 12 HOURS ORAL 03/21/20 21:00 04/20/20 20:59 03/22/20 20:57 Spironolactone (Aldactone) 50 mg DAILY ORAL 03/20/20 10:00 04/19/20 09:59 03/22/20 08:28 Vancomycin HCl 250 ml @ 167.007 mls/hr Q8HR IVPB 03/21/20 14:00 03/26/20 13:59 03/23/20 05:41 Vancomycin HCl (Vanco pharmacy to dose) 1 ea DAILY PRN MISC Per rx protocol 03/20/20 11:00 04/19/20 10:59 Last 24 Hour Vital Signs Date Time Temp Pulse Resp B/P (MAP) Pulse Ox O2 Delivery O2 Flow Rate FiO2 03/23/20 04:00 97.6 75 20 130/75 (93) 98 03/23/20 00:00 97.9 79 20 135/76 (95) 97 03/23/20 00:00 98.1 79 20 132/71 (91) 99 03/22/20 21:39 97.5 03/22/20 21:00 Room Air 03/22/20 20:00 97.9 76 20 134/76 (95) 98 03/22/20 15:48 97.5 71 18 145/72 (96) 96 03/22/20 12:00 97.9 91 18 148/86 (106) 95 03/22/20 08:21 Room Air 03/22/20 07:56 97.7 88 20 150/97 (114) 95 03/22/20 04:00 97.9 90 20 144/93 (110) 96 03/22/20 00:00 98.1 81 18 144/98 (113) 96 03/21/20 20:39 Room Air 03/21/20 20:00 97.5 85 18 148/101 (117) 95 03/21/20 16:00 98.2 92 20 153/97 (115) 99 03/21/20 12:00 98.2 97 20 147/101 (116) 96 03/21/20 09:00 Room Air 03/21/20 08:00 98.1 102 21 143/99 (114) 97 Intake and Output 03/22/20 03/23/20 19:00 07:00 Intake Total 850 ml 1200 ml Output Total 1250 ml Balance -400 ml 1200 ml Intake Oral 600 ml 1200 ml IV Total 250 ml Output Estimated Blood Loss 1250 ml # Voids 2 4 Labs Test 03/20/20 11:22 03/20/20 16:00 03/20/20 20:43 03/21/20 04:00 POC Whole Blood Glucose 313 MG/DL (74-106) 293 MG/DL (74-106) 257 MG/DL (74-106) White Blood Count 11.4 K/UL (4.8-10.8) Red Blood Count 3.76 M/UL (4.70-6.10) Hemoglobin 13.2 G/DL (14.2-18.0) Hematocrit 38.8 % (42.0-52.0) Mean Corpuscular Volume 103 FL (80-99) Mean Corpuscular Hemoglobin 35.2 PG (27.0-31.0) Mean Corpuscular Hemoglobin Concent 34.1 G/DL (32.0-36.0) Red Cell Distribution Width 12.9 % (11.6-14.8) Platelet Count 91 K/UL (150-450) Mean Platelet Volume 11.5 FL (6.5-10.1) Neutrophils (%) (Auto) % (45.0-75.0) Lymphocytes (%) (Auto) % (20.0-45.0) Monocytes (%) (Auto) % (1.0-10.0) Eosinophils (%) (Auto) % (0.0-3.0) Basophils (%) (Auto) % (0.0-2.0) Differential Total Cells Counted 100 Neutrophils % (Manual) 73 % (45-75) Lymphocytes % (Manual) 15 % (20-45) Monocytes % (Manual) 10 % (1-10) Eosinophils % (Manual) 2 % (0-3) Basophils % (Manual) 0 % (0-2) Band Neutrophils 0 % (0-8) Platelet Estimate Decreased Platelet Morphology Normal Hypochromasia 1+ Macrocytosis 1+ Sodium Level 138 MMOL/L (136-145) Potassium Level 3.5 MMOL/L (3.5-5.1) Chloride Level 105 MMOL/L (98-107) Carbon Dioxide Level 25 MMOL/L (21-32) Anion Gap 8 mmol/L (5-15) Blood Urea Nitrogen 7 mg/dL (7-18) Creatinine 0.6 MG/DL (0.55-1.30) Estimat Glomerular Filtration Rate > 60 mL/min (>60) Glucose Level 139 MG/DL (74-106) Calcium Level 7.9 MG/DL (8.5-10.1) Total Bilirubin 0.9 MG/DL (0.2-1.0) Aspartate Amino Transf (AST/SGOT) 79 U/L (15-37) Alanine Aminotransferase (ALT/SGPT) 105 U/L (12-78) Alkaline Phosphatase 199 U/L (46-116) Ammonia 60 umol/L (11-32) Total Protein 5.7 G/DL (6.4-8.2) Albumin 2.3 G/DL (3.4-5.0) Globulin 3.4 g/dL Albumin/Globulin Ratio 0.7 (1.0-2.7) Hepatitis A IgM Antibody Negative (Negative) Hepatitis B Surface Antigen Negative (Negative) Hepatitis B Core IgM Antibody Negative (Negative) Hepatitis C Antibody <0.1 s/co ratio HIV (1&2) Antibody Rapid Negative (NEGATIVE) Test 03/21/20 11:57 03/21/20 12:40 03/21/20 17:00 03/21/20 21:04 Vancomycin Level Trough 5.9 ug/mL (5.0-12.0) Test 03/22/20 04:00 03/22/20 05:35 03/22/20 11:22 03/22/20 13:00 White Blood Count 9.8 K/UL (4.8-10.8) Red Blood Count 4.03 M/UL (4.70-6.10) Hemoglobin 14.0 G/DL (14.2-18.0) Hematocrit 42.0 % (42.0-52.0) Mean Corpuscular Volume 104 FL (80-99) Mean Corpuscular Hemoglobin 34.9 PG (27.0-31.0) Mean Corpuscular Hemoglobin Concent 33.5 G/DL (32.0-36.0) Red Cell Distribution Width 12.9 % (11.6-14.8) Platelet Count 86 K/UL (150-450) Mean Platelet Volume 11.9 FL (6.5-10.1) Neutrophils (%) (Auto) % (45.0-75.0) Lymphocytes (%) (Auto) % (20.0-45.0) Monocytes (%) (Auto) % (1.0-10.0) Eosinophils (%) (Auto) % (0.0-3.0) Basophils (%) (Auto) % (0.0-2.0) Differential Total Cells Counted 100 Neutrophils % (Manual) 65 % (45-75) Lymphocytes % (Manual) 27 % (20-45) Monocytes % (Manual) 6 % (1-10) Eosinophils % (Manual) 2 % (0-3) Basophils % (Manual) 0 % (0-2) Band Neutrophils 0 % (0-8) Platelet Estimate Decreased Platelet Morphology Normal Macrocytosis 1+ Sodium Level 141 MMOL/L (136-145) Potassium Level 4.2 MMOL/L (3.5-5.1) Chloride Level 109 MMOL/L (98-107) Carbon Dioxide Level 24 MMOL/L (21-32) Anion Gap 8 mmol/L (5-15) Blood Urea Nitrogen 6 mg/dL (7-18) Creatinine 0.8 MG/DL (0.55-1.30) Estimat Glomerular Filtration Rate > 60 mL/min (>60) Glucose Level 110 MG/DL (74-106) Calcium Level 8.3 MG/DL (8.5-10.1) Total Bilirubin 0.9 MG/DL (0.2-1.0) Aspartate Amino Transf (AST/SGOT) 101 U/L (15-37) Alanine Aminotransferase (ALT/SGPT) 118 U/L (12-78) Alkaline Phosphatase 198 U/L (46-116) Ammonia 44 umol/L (11-32) Total Protein 6.2 G/DL (6.4-8.2) Albumin 2.4 G/DL (3.4-5.0) Globulin 3.8 g/dL Albumin/Globulin Ratio 0.6 (1.0-2.7) Vancomycin Level Trough 11.2 ug/mL (5.0-12.0) Test 03/22/20 16:41 Height (Feet): 5 Height (Inches): 5.00 Weight (Pounds): 250 Objective Physical Exam Sp02 EP Interpretation: reviewed, normal General: no apparent distress Head: normocephalic, atraumatic Eyes: bilateral eye normal inspection, bilateral eye PERRL ENT: hearing grossly normal, normal pharynx, no angioedema, normal voice Neck: full range of motion, supple/symm/no masses Respiratory: chest non-tender, lungs clear, normal breath sounds, speaking full sentences Cardiovascular: regular rate, rhythm, no edema Gastrointestinal: normal bowel sounds, ++ distended Genitourinary: normal inspection, no CVA tenderness Neurologic: alert, motor strength/tone normal, oriented x3, sensory intact, responsive, speech normal Skin: no rash Lymphatic: no adenopathy Yunier Marquez MD Mar 23, 2020 06:54
--- NOTE | 2020-03-23 07:09 | NUR ---
HAND-OFF: Report given to LUCIEN MCKEON AND LUCIEN QUIÑONES.
[2020-03-23 08:00] VITALS: BP 125/79
--- NOTE | 2020-03-23 08:12 | NUR ---
NURSE NOTES: Received report from LUCIEN Brink. Pt a/o x 4, in bed, watching phone. No discomfort noted. Pt said "Everything is fine. No pain". Rt AC IV line is patent. Bed in lowest position, call light within reach. Will continue to monitor.
[2020-03-23] MEDS: Spironolactone 50mg tab ORAL SCH (09:10)
[2020-03-23] MEDS: Lactulose 20gm/30ml UDC ORAL SCH ×2 (09:10→17:18)
[2020-03-23] MEDS: Levemir Flexpen SUBQ SCH (09:14)
--- NOTE | 2020-03-23 10:18 | General Progress Note ---
Subjective ROS Limited/Unobtainable: Yes Allergies: Coded Allergies: No Known Allergies (Unverified , 03/07/20) Objective Last 24 Hour Vital Signs Date Time Temp Pulse Resp B/P (MAP) Pulse Ox O2 Delivery O2 Flow Rate FiO2 03/23/20 08:00 98.2 80 18 125/79 (94) 97 03/23/20 04:00 97.6 75 20 130/75 (93) 98 03/23/20 00:00 97.9 79 20 135/76 (95) 97 03/23/20 00:00 98.1 79 20 132/71 (91) 99 03/22/20 21:39 97.5 03/22/20 21:00 Room Air 03/22/20 20:00 97.9 76 20 134/76 (95) 98 03/22/20 15:48 97.5 71 18 145/72 (96) 96 03/22/20 12:00 97.9 91 18 148/86 (106) 95 Intake and Output 03/22/20 03/23/20 19:00 07:00 Intake Total 850 ml 1200 ml Output Total 1250 ml Balance -400 ml 1200 ml Intake Oral 600 ml 1200 ml IV Total 250 ml Output Estimated Blood Loss 1250 ml # Voids 2 4 Laboratory Tests 03/22/20 11:22: POC Whole Blood Glucose [Pending] 03/22/20 13:00: Vancomycin Level Trough 11.2 03/22/20 16:41: POC Whole Blood Glucose [Pending] 03/23/20 09:13: POC Whole Blood Glucose 165H Height (Feet): 5 Height (Inches): 5.00 Weight (Pounds): 250 Assessment/Plan Problem List: (1) Pneumonia ICD Codes: J18.9 - Pneumonia, unspecified organism SNOMED: 232666663 (2) Hyperglycemia ICD Codes: R73.9 - Hyperglycemia, unspecified SNOMED: 58868217 (3) LGI bleed ICD Codes: K92.2 - Gastrointestinal hemorrhage, unspecified SNOMED: 61158518 (4) Ascites due to alcoholic cirrhosis ICD Codes: K70.31 - Alcoholic cirrhosis of liver with ascites SNOMED: 4553568588041841 (5) Pneumonia due to COVID-19 virus ICD Codes: U07.1 - COVID-19; J12.89 - Other viral pneumonia SNOMED: 435265644073990105 (6) COVID-19 ICD Codes: U07.1 - COVID-19 SNOMED: 703781109 Status: progressing, unchanged Assessment/Plan: prn oxygen afebrile covid positive h/h stable cirrhosis no sob Ricki Brown MD Mar 23, 2020 10:18
[2020-03-23 12:00] VITALS: BP 127/72
[2020-03-23] MEDS: cefTRIAXone 1 GM in D5W 55 ML IVPB SCH (12:17)
--- NOTE | 2020-03-23 13:38 | Infectious Diseases Prog Note ---
Assessment/Plan Assessment/Plan: 39 yo male with with PMHx of DM and COVID 19 Dx 03/08/20 who presented to the ED on 03/19/20 with blood in his stool and abdominal pain. Leukocytosis- SP Ascities- r/o SBP -03/22 sp paracentesis: yielding 1.25 liters of fluid -CT abd/p: There is moderate abdominal and pelvic ascites. Cirrhosis of the liver. 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 No other acute findings. No fever Abdominal Pain COVID 19 Stable on RA SARS COV 2 PCR Pos 03/07/20 and 03/19/20 CXR 03/19/20 Improved B/L Infiltrates Elevated LFts; increased -HIV ab screen neg, Acute hep panel p DM Cirrhosis seen on CT PLAN - Cont Ceftriaxone #4 pending ascites fluid -Dc empiric IV Vancomycin #4 - f/u Cx - COVID 19 Iso for now- not candidate for Remdesivir according to [facility] [place] COVID task force internal guidelines- need to be on supplemental O2 - Monitor Respiratory status - f/u GI recs for GI Bleed Thank you for this consult. [facility] will continue to follow Mr. Banuelos with you. Subjective Allergies: Coded Allergies: No Known Allergies (Unverified , 03/07/20) afebrile at RA Objective Last 24 Hour Vital Signs Date Time Temp Pulse Resp B/P (MAP) Pulse Ox O2 Delivery O2 Flow Rate FiO2 03/23/20 12:00 99.3 80 18 127/72 (90) 98 03/23/20 09:00 Room Air 03/23/20 08:00 98.2 80 18 125/79 (94) 97 03/23/20 04:00 97.6 75 20 130/75 (93) 98 03/23/20 00:00 97.9 79 20 135/76 (95) 97 03/23/20 00:00 98.1 79 20 132/71 (91) 99 03/22/20 21:39 97.5 03/22/20 21:00 Room Air 03/22/20 20:00 97.9 76 20 134/76 (95) 98 03/22/20 15:48 97.5 71 18 145/72 (96) 96 Height (Feet): 5 Height (Inches): 5.00 Weight (Pounds): 250 GEN: NAD on RA HEENT: NCAT, MMM, EOMI, No Scleral icterus, Neck: No LAD, Supple LUNGS: CTAB, No W HEART: RRR, S1, S2. ABD: Soft, NT, Mild Distension Skin: No rash,, Normal in color NEURO: A/O x 4, No focal deficits Laboratory Tests Test 03/22/20 16:41 03/23/20 09:13 03/23/20 12:16 POC Whole Blood Glucose Pending 165 MG/DL (74-106) H 201 MG/DL (74-106) H Current Medications Medications (Trade) Dose Ordered Sig/Sharmaine Route PRN Reason Start Time Stop Time Status Last Admin Dose Admin Ceftriaxone Sodium 1 gm/ Dextrose 55 ml @ 110 mls/hr Q24H IVPB 03/20/20 12:00 03/27/20 11:59 03/23/20 12:17 Dextrose (Dextrose 50%) 25 ml Q30M PRN IV Hypoglycemia 03/20/20 00:30 06/18/20 00:29 Dextrose (Dextrose 50%) 50 ml Q30M PRN IV Hypoglycemia 03/20/20 00:30 06/18/20 00:29 Furosemide (Lasix) 20 mg DAILY IV 03/20/20 10:00 04/19/20 09:59 03/23/20 09:10 Insulin Aspart (NovoLOG) BEFORE MEALS AND HS SUBQ 03/20/20 06:30 06/18/20 06:29 03/23/20 12:19 Insulin Aspart (NovoLOG) 6 units NOVOTIAC SUBQ 03/20/20 16:50 06/18/20 16:49 03/23/20 12:19 Insulin Detemir (Levemir) 18 units DAILY SUBQ 03/20/20 15:00 06/18/20 14:59 03/23/20 09:14 Lactulose (Cephulac) 20 gm BID ORAL 03/21/20 09:00 04/20/20 08:59 03/23/20 09:10 Morphine Sulfate (Morphine Sulfate) 2 mg Q4H PRN IVP For Pain 03/20/20 00:15 03/27/20 00:14 03/22/20 21:09 Pantoprazole (Protonix) 40 mg EVERY 12 HOURS ORAL 03/21/20 21:00 04/20/20 20:59 03/23/20 09:10 Spironolactone (Aldactone) 50 mg DAILY ORAL 03/20/20 10:00 04/19/20 09:59 03/23/20 09:10 Vancomycin HCl 250 ml @ 167.007 mls/hr Q8HR IVPB 03/21/20 14:00 03/26/20 13:59 03/23/20 13:28 Vancomycin HCl ([facility] pharmacy to dose) 1 ea DAILY PRN MISC Per rx protocol 03/20/20 11:00 04/19/20 10:59 Leena Marie M.D. Mar 23, 2020 13:38
--- NOTE | 2020-03-23 13:40 | NUR ---
NURSE NOTES: Rn followed up with Dr. Brown if he is planning to discharge patient. Per Dr. Brown,patient is covid (+) so he is not ready for discharge yet.
[2020-03-23 16:00] VITALS: BP 122/81
--- NOTE | 2020-03-23 18:33 | NUR ---
NURSE HAND-OFF: Important Events on Shift: n/a Patient Status: stable Diet: CCHO Medium Pending Orders: Pending Results/Labs: Pending MD notification: Latest Vital Signs: Temperature 99.3 , Pulse 76 , B/P 122 /81 , Respiratory Rate 18 , O2 SAT 98 , Room Air, O2 Flow Rate . Vital Sign Comment: Latest Gutierrez Fall Score: 35 Fall Risk: Medium Risk Safety Measures: Call light Within Reach, Bed Alarm Zone 1, Side Rails Side Rails x2, Bed position Low and Locked. Fall Precautions: Patient Fall Education Report given to LUCIEN Brink. Endorsed plan of care.
--- NOTE | 2020-03-23 19:15 | General Progress Note ---
Subjective Allergies: Coded Allergies: No Known Allergies (Unverified , 03/07/20) Subjective d/w RN patient is comfortable no N/V no melena s/p paracentesis Objective Last 24 Hour Vital Signs Date Time Temp Pulse Resp B/P (MAP) Pulse Ox O2 Delivery O2 Flow Rate FiO2 03/23/20 16:00 99.3 76 18 122/81 (95) 98 03/23/20 12:00 99.3 80 18 127/72 (90) 98 03/23/20 09:00 Room Air 03/23/20 08:00 98.2 80 18 125/79 (94) 97 03/23/20 04:00 97.6 75 20 130/75 (93) 98 03/23/20 00:00 97.9 79 20 135/76 (95) 97 03/23/20 00:00 98.1 79 20 132/71 (91) 99 03/22/20 21:39 97.5 03/22/20 21:00 Room Air 03/22/20 20:00 97.9 76 20 134/76 (95) 98 Intake and Output 03/22/20 03/23/20 19:00 07:00 Intake Total 850 ml 1200 ml Output Total 1250 ml Balance -400 ml 1200 ml Intake Oral 600 ml 1200 ml IV Total 250 ml Output Estimated Blood Loss 1250 ml # Voids 2 4 Laboratory Tests 03/23/20 09:13: POC Whole Blood Glucose 165H 03/23/20 12:16: POC Whole Blood Glucose 201H 03/23/20 17:14: POC Whole Blood Glucose [Pending] 03/23/20 17:27: POC Whole Blood Glucose 92 Height (Feet): 5 Height (Inches): 5.00 Weight (Pounds): 250 Objective Exam limited due to COVID isolation Assessment/Plan Status: progressing, unchanged Assessment/Plan: Assessment - cirrhosis - hepatitis B/c negative - abnormal LFT - presumed due to COVID - COVID infection - s/p paracentesis Recommendations - follow LFT - diuretics - lactulose - d/c planning per PMD Markie Barahona MD Mar 23, 2020 19:15
--- NOTE | 2020-03-23 19:29 | NUR ---
NURSE NOTES: Received report from abdulkadir bar, elsirn. patient on bed, awake. on room air. no sob. with left forearm iv access, saline lock. per abdulkadir bar" patient is not ready for discharge secondary to covid 19 +". afebrile. ambulates. reiterated to call and ask for assistance to prevent fall or injury. call light and light button within easy reach. bed locked and in lowest position. will continue plan of care.
[2020-03-23 20:00] VITALS: BP 134/76
[2020-03-24] VITALS: BP 129/79
[2020-03-24 04:00] VITALS: BP 130/72
[2020-03-24] MEDS: NovoLOG Insulin Flexpen SUBQ SCH ×4 (05:44→11:58)
--- NOTE | 2020-03-24 06:10 | General Progress Note ---
Subjective Allergies: Coded Allergies: No Known Allergies (Unverified , 03/07/20) All Systems: reviewed and negative except above Subjective events noted interval notes reviewed glucose values are stable Item Value Date Time Bedside Blood Glucose 126 mg/dl H 03/24/20 0608 Bedside Blood Glucose 125 mg/dl H 03/23/20 2100 Bedside Blood Glucose 108 mg/dl 03/23/20 1718 Bedside Blood Glucose 201 mg/dl H 03/23/20 1219 Bedside Blood Glucose 165 mg/dl H 03/23/20 0914 Bedside Blood Glucose 145 mg/dl H 03/23/20 0626 Objective Last 24 Hour Vital Signs Date Time Temp Pulse Resp B/P (MAP) Pulse Ox O2 Delivery O2 Flow Rate FiO2 03/24/20 04:00 97.5 78 20 130/72 (91) 97 03/24/20 00:00 97.9 80 20 129/79 (96) 98 03/23/20 21:00 Room Air 03/23/20 20:00 97.6 79 20 134/76 (95) 99 03/23/20 16:00 99.3 76 18 122/81 (95) 98 03/23/20 12:00 99.3 80 18 127/72 (90) 98 03/23/20 09:00 Room Air 03/23/20 08:00 98.2 80 18 125/79 (94) 97 Intake and Output 03/23/20 03/24/20 19:00 07:00 Intake Total 1255 ml 900 ml Balance 1255 ml 900 ml Intake Oral 1200 ml 900 ml IV Total 55 ml # Voids 5 3 # Bowel Movements 1 Laboratory Tests 03/23/20 09:13: POC Whole Blood Glucose 165H 03/23/20 12:16: POC Whole Blood Glucose 201H 03/23/20 17:14: POC Whole Blood Glucose [Pending] 03/23/20 17:27: POC Whole Blood Glucose 92 03/23/20 20:04: POC Whole Blood Glucose 124H Height (Feet): 5 Height (Inches): 5.00 Weight (Pounds): 250 Objective Current Medications Medications (Trade) Dose Ordered Sig/Sharmaine Route PRN Reason Start Time Stop Time Status Last Admin Dose Admin Ceftriaxone Sodium 1 gm/ Dextrose 55 ml @ 110 mls/hr Q24H IVPB 03/20/20 12:00 03/27/20 11:59 03/23/20 12:17 Dextrose (Dextrose 50%) 25 ml Q30M PRN IV Hypoglycemia 03/20/20 00:30 06/18/20 00:29 Dextrose (Dextrose 50%) 50 ml Q30M PRN IV Hypoglycemia 03/20/20 00:30 06/18/20 00:29 Furosemide (Lasix) 20 mg DAILY IV 03/20/20 10:00 04/19/20 09:59 03/23/20 09:10 Insulin Aspart (NovoLOG) BEFORE MEALS AND HS SUBQ 03/20/20 06:30 06/18/20 06:29 03/23/20 12:19 Insulin Aspart (NovoLOG) 6 units NOVOTIAC SUBQ 03/20/20 16:50 06/18/20 16:49 03/24/20 05:46 Insulin Detemir (Levemir) 18 units DAILY SUBQ 03/20/20 15:00 06/18/20 14:59 03/23/20 09:14 Lactulose (Cephulac) 20 gm BID ORAL 03/21/20 09:00 04/20/20 08:59 03/23/20 17:18 Morphine Sulfate (Morphine Sulfate) 2 mg Q4H PRN IVP For Pain 03/20/20 00:15 03/27/20 00:14 03/22/20 21:09 Pantoprazole (Protonix) 40 mg EVERY 12 HOURS ORAL 03/21/20 21:00 04/20/20 20:59 03/23/20 20:04 Spironolactone (Aldactone) 50 mg DAILY ORAL 03/20/20 10:00 04/19/20 09:59 03/23/20 09:10 Assessment/Plan Problem List: (1) COVID-19 ICD Codes: U07.1 - COVID-19 SNOMED: 798926011 (2) Pneumonia due to COVID-19 virus ICD Codes: U07.1 - COVID-19; J12.89 - Other viral pneumonia SNOMED: 773077844684576181 (3) Hyperglycemia ICD Codes: R73.9 - Hyperglycemia, unspecified SNOMED: 74302150 Status: progressing, unchanged Assessment/Plan: continue Levemir 18 units daily continue Novolog 6 units ac tid continue Novolog sliding scale ac / hs Wellington Foster MD Mar 24, 2020 06:10
--- NOTE | 2020-03-24 06:21 | NUR ---
NURSE HAND-OFF: Important Events on Shift: Patient Status: STABLE Diet: CCHO Pending Orders: Pending Results/Labs: Pending MD notification: Latest Vital Signs: Temperature 97.5 , Pulse 78 , B/P 130 /72 , Respiratory Rate 20 , O2 SAT 97 , Room Air, O2 Flow Rate . Vital Sign Comment: Latest Gutierrez Fall Score: 20 Fall Risk: Low Risk Safety Measures: Call light Within Reach, Bed Alarm Zone 1, Side Rails Side Rails x2, Bed position Low and Locked. Fall Precautions: Patient Fall Education
--- NOTE | 2020-03-24 06:55 | Hematology/Onc Progress Note ---
Assessment/Plan Assessment/Plan Assessment and Recs # Thrombocytopenia - potential causes multifactorial, does endorse a hx of alcoholic cirrhosis --> hiv and hep thus far neg --> CT 2. Cirrhosis of the liver. 3. 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 --> Peripheral smear ordered to evaluate for blasts /schistocytes --> abx and other meds have been reviewed --> ok for ppx if plt >50k w/ either heparin or lovenox --> Transfuse if Plt < 20k and fever, or if Plt < 10k without fever -> pl;t 83-->91-->87-->86 # Anemia that is due to LGI bleed --> r'o variceal bleed --> per gi endscopy prn --> ppi as needed --> hgb 14 # Leukocytosis is due to Bilateral pna with COVID-19 --> ABX vanc/ctx --> smear is reviewed # Hyperglycemia -> iss and accuchecks as needed # Ascites due to alcoholic cirrhosis # Dvt ppx scds The timing of this note does not necessarily reflect the time of the patient was seen. Greatly appreciate consultation. Subjective HEENT: Denies: no symptoms, eye pain, blurred vision, tearing, double vision, ear pain, ear discharge, nose pain, nose congestion, throat pain, throat swelling, mouth pain, mouth swelling, other Cardiovascular: Denies: no symptoms, chest pain, edema, irregular heart rate, lightheadedness, palpitations, syncope, other Genitourinary: Denies: no symptoms, burning, discharge, frequency, flank pain, hematuria, incontinence, pain, urgency, other Neurologic/Psychiatric: Denies: no symptoms, anxiety, depressed, emotional problems, headache, numbness, paresthesia, pre-existing deficit, seizure, tingling, tremors, weakness, other Endocrine: Denies: no symptoms, excessive sweating, flushing, intolerance to cold, intolerance to heat, increased hunger, increased thirst, increased urine, unexplained weight gain, unexplained weight loss, other Hematologic/Lymphatic: Denies: no symptoms, anemia, easy bleeding, easy bruising, adenopathy, other Allergies: Coded Allergies: No Known Allergies (Unverified , 03/07/20) Subjective 03/22 for paracentesis to be done, no bleeding, no night sweats 03/23 labs reviewed, meds noted, no night sweats, plt lower 03/24 labs noted, no bleeding, meds noted, no night sweats, plt 86 Objective Objective Current Medications Medications (Trade) Dose Ordered Sig/Sharmaine Route PRN Reason Start Time Stop Time Status Last Admin Dose Admin Ceftriaxone Sodium 1 gm/ Dextrose 55 ml @ 110 mls/hr Q24H IVPB 03/20/20 12:00 03/27/20 11:59 03/23/20 12:17 Dextrose (Dextrose 50%) 25 ml Q30M PRN IV Hypoglycemia 03/20/20 00:30 06/18/20 00:29 Dextrose (Dextrose 50%) 50 ml Q30M PRN IV Hypoglycemia 03/20/20 00:30 06/18/20 00:29 Furosemide (Lasix) 20 mg DAILY IV 03/20/20 10:00 04/19/20 09:59 03/23/20 09:10 Insulin Aspart (NovoLOG) BEFORE MEALS AND HS SUBQ 03/20/20 06:30 06/18/20 06:29 03/23/20 12:19 Insulin Aspart (NovoLOG) 6 units NOVOTIAC SUBQ 03/20/20 16:50 06/18/20 16:49 03/24/20 05:46 Insulin Detemir (Levemir) 18 units DAILY SUBQ 03/20/20 15:00 06/18/20 14:59 03/23/20 09:14 Lactulose (Cephulac) 20 gm BID ORAL 03/21/20 09:00 04/20/20 08:59 03/23/20 17:18 Morphine Sulfate (Morphine Sulfate) 2 mg Q4H PRN IVP For Pain 03/20/20 00:15 03/27/20 00:14 03/22/20 21:09 Pantoprazole (Protonix) 40 mg EVERY 12 HOURS ORAL 03/21/20 21:00 04/20/20 20:59 03/23/20 20:04 Spironolactone (Aldactone) 50 mg DAILY ORAL 03/20/20 10:00 04/19/20 09:59 03/23/20 09:10 Last 24 Hour Vital Signs Date Time Temp Pulse Resp B/P (MAP) Pulse Ox O2 Delivery O2 Flow Rate FiO2 03/24/20 04:00 97.5 78 20 130/72 (91) 97 03/24/20 00:00 97.9 80 20 129/79 (96) 98 03/23/20 21:00 Room Air 03/23/20 20:00 97.6 79 20 134/76 (95) 99 03/23/20 16:00 99.3 76 18 122/81 (95) 98 03/23/20 12:00 99.3 80 18 127/72 (90) 98 03/23/20 09:00 Room Air 03/23/20 08:00 98.2 80 18 125/79 (94) 97 03/23/20 04:00 97.6 75 20 130/75 (93) 98 03/23/20 00:00 97.9 79 20 135/76 (95) 97 03/23/20 00:00 98.1 79 20 132/71 (91) 99 03/22/20 21:39 97.5 03/22/20 21:00 Room Air 03/22/20 20:00 97.9 76 20 134/76 (95) 98 03/22/20 15:48 97.5 71 18 145/72 (96) 96 03/22/20 12:00 97.9 91 18 148/86 (106) 95 03/22/20 08:21 Room Air 03/22/20 07:56 97.7 88 20 150/97 (114) 95 Intake and Output 03/23/20 03/24/20 19:00 07:00 Intake Total 1255 ml 900 ml Balance 1255 ml 900 ml Intake Oral 1200 ml 900 ml IV Total 55 ml # Voids 5 3 # Bowel Movements 1 Labs Test 03/21/20 11:57 03/21/20 12:40 03/21/20 17:00 03/21/20 21:04 Vancomycin Level Trough 5.9 ug/mL (5.0-12.0) Test 03/22/20 04:00 03/22/20 05:35 03/22/20 11:22 03/22/20 13:00 White Blood Count 9.8 K/UL (4.8-10.8) Red Blood Count 4.03 M/UL (4.70-6.10) Hemoglobin 14.0 G/DL (14.2-18.0) Hematocrit 42.0 % (42.0-52.0) Mean Corpuscular Volume 104 FL (80-99) Mean Corpuscular Hemoglobin 34.9 PG (27.0-31.0) Mean Corpuscular Hemoglobin Concent 33.5 G/DL (32.0-36.0) Red Cell Distribution Width 12.9 % (11.6-14.8) Platelet Count 86 K/UL (150-450) Mean Platelet Volume 11.9 FL (6.5-10.1) Neutrophils (%) (Auto) % (45.0-75.0) Lymphocytes (%) (Auto) % (20.0-45.0) Monocytes (%) (Auto) % (1.0-10.0) Eosinophils (%) (Auto) % (0.0-3.0) Basophils (%) (Auto) % (0.0-2.0) Differential Total Cells Counted 100 Neutrophils % (Manual) 65 % (45-75) Lymphocytes % (Manual) 27 % (20-45) Monocytes % (Manual) 6 % (1-10) Eosinophils % (Manual) 2 % (0-3) Basophils % (Manual) 0 % (0-2) Band Neutrophils 0 % (0-8) Platelet Estimate Decreased Platelet Morphology Normal Macrocytosis 1+ Sodium Level 141 MMOL/L (136-145) Potassium Level 4.2 MMOL/L (3.5-5.1) Chloride Level 109 MMOL/L (98-107) Carbon Dioxide Level 24 MMOL/L (21-32) Anion Gap 8 mmol/L (5-15) Blood Urea Nitrogen 6 mg/dL (7-18) Creatinine 0.8 MG/DL (0.55-1.30) Estimat Glomerular Filtration Rate > 60 mL/min (>60) Glucose Level 110 MG/DL (74-106) Calcium Level 8.3 MG/DL (8.5-10.1) Total Bilirubin 0.9 MG/DL (0.2-1.0) Aspartate Amino Transf (AST/SGOT) 101 U/L (15-37) Alanine Aminotransferase (ALT/SGPT) 118 U/L (12-78) Alkaline Phosphatase 198 U/L (46-116) Ammonia 44 umol/L (11-32) Total Protein 6.2 G/DL (6.4-8.2) Albumin 2.4 G/DL (3.4-5.0) Globulin 3.8 g/dL Albumin/Globulin Ratio 0.6 (1.0-2.7) Vancomycin Level Trough 11.2 ug/mL (5.0-12.0) Test 03/22/20 14:10 03/22/20 16:41 03/23/20 09:13 03/23/20 12:16 Body Fluid Source Paracentesis Body Fluid Volume 3.0 mL Body Fluid Appearance Yellow/cloudy (Clear) Body Fluid RBC 2488 /CUMM Body Fluid Total Nucleated Cells 120 /CUMM Body Fluid Polynuclear WBCs (%) 5 % Body Fluid Mononuclear WBCs (%) 93 % Body Fluid Mesothelial Cells (%) 2 % Body Fluid Comment Na POC Whole Blood Glucose 165 MG/DL (74-106) 201 MG/DL (74-106) Test 03/23/20 17:14 03/23/20 17:27 03/23/20 20:04 POC Whole Blood Glucose 92 MG/DL (74-106) 124 MG/DL (74-106) Height (Feet): 5 Height (Inches): 5.00 Weight (Pounds): 250 Objective Physical Exam Sp02 EP Interpretation: reviewed, normal General: no apparent distress Head: normocephalic, atraumatic Eyes: bilateral eye normal inspection, bilateral eye PERRL ENT: hearing grossly normal, normal pharynx, no angioedema, normal voice Neck: full range of motion, supple/symm/no masses Respiratory: chest non-tender, lungs clear, normal breath sounds, speaking full sentences Cardiovascular: regular rate, rhythm, no edema Gastrointestinal: normal bowel sounds, ++ distended Genitourinary: normal inspection, no CVA tenderness Neurologic: alert, motor strength/tone normal, oriented x3, sensory intact, responsive, speech normal Skin: no rash Lymphatic: no adenopathy Yunier Marquez MD Mar 24, 2020 06:55
--- NOTE | 2020-03-24 07:39 | NUR ---
HAND-OFF: Report given to LUCIEN AVILA.
[2020-03-24 08:00] VITALS: BP 127/62
--- NOTE | 2020-03-24 08:00 | NUR ---
NURSE NOTES: Patient awake and alert and oriented,respirations unlabored.Patient sitting up ,ate breakfast.Saline lock left forearm intact. Patient state he is feeling good.Call light within reach.
[2020-03-24] MEDS: Spironolactone 50mg tab ORAL SCH (08:25)
[2020-03-24] MEDS: Lactulose 20gm/30ml UDC ORAL SCH (08:25)
[2020-03-24] MEDS: Levemir Flexpen SUBQ SCH (08:29)
--- NOTE | 2020-03-24 08:44 | NUR ---
NURSE NOTES: stock sheets cleaner inspector received discharge order from Dr. Brown over the phone. Dr. Brown wants to discharge patient to [facility]) for quarantine [phone], continue with hospital meds , d/c home meds, continue with ceftriaxone 1gm IVPB daily x 5 more days. RN endorsed to the primary nurse.
[2020-03-24] MEDS ORDERED: ROCEPHIN 11 GM/50 ML IVPB (08:48)
[2020-03-24] MEDS ORDERED: FUROSEMIDE20 M1 ORAL (08:49)
[2020-03-24] MEDS ORDERED: LACTULOSE20 GM/301 ORAL (08:50)
[2020-03-24] MEDS ORDERED: PANTOPRAZOLE SO40 MG ORAL (08:50)
[2020-03-24] MEDS ORDERED: NOVOLOG100 UNITS1 SUBQ ×2 (08:51→09:00)
[2020-03-24] MEDS ORDERED: SPIRONOLACTONE50 MG ORAL (08:51)
[2020-03-24] MEDS ORDERED: LEVEMIR FL100 UNIT/2 SQ (08:57)
--- NOTE | 2020-03-24 09:13 | NUR ---
DISCHARGE PLANNING PATIENT HAS BEEN REFERRED TO [facility] P [phone] F [phone]
--- NOTE | 2020-03-24 10:00 | NUR ---
NURSE NOTES: Received phone call from Dr. Brown to refer patient to [facility] came from. CM is aware.
[2020-03-24] MEDS: cefTRIAXone 1 GM in D5W 55 ML IVPB SCH (11:47)
[2020-03-24 12:00] VITALS: BP 116/68
--- NOTE | 2020-03-24 12:21 | Infectious Diseases Prog Note ---
Assessment/Plan Assessment/Plan: 39 yo male with with PMHx of DM and COVID 19 Dx 03/08/20 who presented to the ED on 03/19/20 with blood in his stool and abdominal pain. Leukocytosis- SP Ascities-no evidence of SBP -11 sp paracentesis: yielding 1.25 liters of fluid -wbc 120 (N 5%) -CT abd/p: There is moderate abdominal and pelvic ascites. Cirrhosis of the liver. 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 No other acute findings. No fever Abdominal Pain COVID 19- assymptomatic Stable on RA SARS COV 2 PCR Pos 03/07/20 and 03/19/20 CXR 03/19/20 Improved B/L Infiltrates Elevated LFts; increased -HIV ab screen neg, Acute hep panel neg DM Cirrhosis seen on CT PLAN - Cont Ceftriaxone #5/5 (empiric) -03/23 SP IV Vancomycin #4 - f/u Cx - COVID 19 Iso for now- not candidate for Remdesivir according to [facility] COVID task force internal guidelines- need to be on supplemental O2 - Monitor Respiratory status - f/u GI recs for GI Bleed Thank you for this consult. [facility] will continue to follow Mr. Banuelos with you. Subjective Allergies: Coded Allergies: No Known Allergies (Unverified , 03/07/20) afebrile at RA leukocytosis resolved Objective Last 24 Hour Vital Signs Date Time Temp Pulse Resp B/P (MAP) Pulse Ox O2 Delivery O2 Flow Rate FiO2 03/24/20 09:00 Room Air 03/24/20 08:00 98.2 79 18 127/62 (83) 96 03/24/20 04:00 97.5 78 20 130/72 (91) 97 03/24/20 00:00 97.9 80 20 129/79 (96) 98 03/23/20 21:00 Room Air 03/23/20 20:00 97.6 79 20 134/76 (95) 99 03/23/20 16:00 99.3 76 18 122/81 (95) 98 Height (Feet): 5 Height (Inches): 5.00 Weight (Pounds): 250 GEN: NAD on RA HEENT: NCAT, MMM, EOMI, No Scleral icterus, Neck: No LAD, Supple LUNGS: CTAB, No W HEART: RRR, S1, S2. ABD: Soft, NT, Mild Distension Skin: No rash,, Normal in color NEURO: A/O x 4, No focal deficits Laboratory Tests Test 03/23/20 17:14 03/23/20 17:27 03/23/20 20:04 03/24/20 08:24 POC Whole Blood Glucose Pending 92 MG/DL (74-106) 124 MG/DL (74-106) H Pending Test 03/24/20 11:44 POC Whole Blood Glucose 145 MG/DL (74-106) H Current Medications Medications (Trade) Dose Ordered Sig/Sharmaine Route PRN Reason Start Time Stop Time Status Last Admin Dose Admin Ceftriaxone Sodium 1 gm/ Dextrose 55 ml @ 110 mls/hr Q24H IVPB 03/20/20 12:00 03/27/20 11:59 03/24/20 11:47 Dextrose (Dextrose 50%) 25 ml Q30M PRN IV Hypoglycemia 03/20/20 00:30 06/18/20 00:29 Dextrose (Dextrose 50%) 50 ml Q30M PRN IV Hypoglycemia 03/20/20 00:30 06/18/20 00:29 Furosemide (Lasix) 20 mg DAILY IV 03/20/20 10:00 04/19/20 09:59 03/24/20 08:25 Insulin Aspart (NovoLOG) BEFORE MEALS AND HS SUBQ 03/20/20 06:30 06/18/20 06:29 03/24/20 11:57 Insulin Aspart (NovoLOG) 6 units NOVOTIAC SUBQ 03/20/20 16:50 06/18/20 16:49 03/24/20 11:58 Insulin Detemir (Levemir) 18 units DAILY SUBQ 03/20/20 15:00 06/18/20 14:59 03/24/20 08:29 Lactulose (Cephulac) 20 gm BID ORAL 03/21/20 09:00 04/20/20 08:59 03/24/20 08:25 Morphine Sulfate (Morphine Sulfate) 2 mg Q4H PRN IVP For Pain 03/20/20 00:15 03/27/20 00:14 03/22/20 21:09 Pantoprazole (Protonix) 40 mg EVERY 12 HOURS ORAL 03/21/20 21:00 04/20/20 20:59 03/24/20 08:25 Spironolactone (Aldactone) 50 mg DAILY ORAL 03/20/20 10:00 04/19/20 09:59 03/24/20 08:25 Leena Marie M.D. Mar 24, 2020 12:21
--- NOTE | 2020-03-24 12:48 | NUR ---
NURSE NOTES: Dr. Marie discontinued ceftriaxone IVPB. RN clarified with Dr. Marie if patient needs to continue with ceftriaxone. Dr. Marie said to d/c.
--- NOTE | 2020-03-24 13:07 | General Progress Note ---
Subjective ROS Limited/Unobtainable: Yes Allergies: Coded Allergies: No Known Allergies (Unverified , 03/07/20) Objective Last 24 Hour Vital Signs Date Time Temp Pulse Resp B/P (MAP) Pulse Ox O2 Delivery O2 Flow Rate FiO2 03/24/20 12:00 98.1 76 17 116/68 (84) 96 03/24/20 09:00 Room Air 03/24/20 08:00 98.2 79 18 127/62 (83) 96 03/24/20 04:00 97.5 78 20 130/72 (91) 97 03/24/20 00:00 97.9 80 20 129/79 (96) 98 03/23/20 21:00 Room Air 03/23/20 20:00 97.6 79 20 134/76 (95) 99 03/23/20 16:00 99.3 76 18 122/81 (95) 98 Intake and Output 03/23/20 03/24/20 19:00 07:00 Intake Total 1255 ml 900 ml Balance 1255 ml 900 ml Intake Oral 1200 ml 900 ml IV Total 55 ml # Voids 5 3 # Bowel Movements 1 Laboratory Tests 03/23/20 17:14: POC Whole Blood Glucose [Pending] 03/23/20 17:27: POC Whole Blood Glucose 92 03/23/20 20:04: POC Whole Blood Glucose 124H 03/24/20 08:24: POC Whole Blood Glucose [Pending] 03/24/20 11:44: POC Whole Blood Glucose 145H Height (Feet): 5 Height (Inches): 5.00 Weight (Pounds): 250 Assessment/Plan Problem List: (1) Pneumonia ICD Codes: J18.9 - Pneumonia, unspecified organism SNOMED: 370856666 (2) Hyperglycemia ICD Codes: R73.9 - Hyperglycemia, unspecified SNOMED: 02721906 (3) LGI bleed ICD Codes: K92.2 - Gastrointestinal hemorrhage, unspecified SNOMED: 13803718 (4) Ascites due to alcoholic cirrhosis ICD Codes: K70.31 - Alcoholic cirrhosis of liver with ascites SNOMED: 8176187311459678 (5) Pneumonia due to COVID-19 virus ICD Codes: U07.1 - COVID-19; J12.89 - Other viral pneumonia SNOMED: 264400453715599093 (6) COVID-19 ICD Codes: U07.1 - COVID-19 SNOMED: 630903670 Status: progressing, unchanged Assessment/Plan: dc back to sn[facility] afebrile reviewed chart covid positive cirrhosis no sob Ricki Brown MD Mar 24, 2020 13:07
--- NOTE | 2020-03-24 15:22 | NUR ---
NURSE NOTES: Patient requested to be discharged to home, pt refused to go back to [facility]. Patient's family members called [facility] spoke to CM, primary nurse. RN spoke to Doc Brown and relayed. Dr. Brown said ok to d/c home if ok with ID and RN also relayed patient's covid positive test was 03/07/20 per SNF records and also positive on 03/19/20 done @[facility] [place]. linseed cake trimmer spoke to Dr. Marie who said patient is clear for d/c home with no home isolation since his first covid positive was more than 10 days and patient has no symptoms. Family asked to re swab the patient but Dr. Marie declined. Endorsed to the primary nurse and family is aware.
[2020-03-24 16:00] VITALS: BP 130/81
--- NOTE | 2020-03-24 17:00 | NUR ---
NURSE NOTES: Patient discharge with discharge instructions given.Patient has his personal belongings patient aware to followup with his primary Doctor regarding Monitoring Blood sugars and followup regarding medications. Patient aware to wear mask and isolate at home as needed..IV removed and ID hospital band removed.Patient accompany down to private vehicle.
--- NOTE | 2020-03-25 16:52 | Discharge Summary ---
Discharge Summary Discharge Summary _ DATE OF ADMISSION: 03/19/2020 DATE OF DISCHARGE: 03/24/2020 DISCHARGED BY: Dr. Brown REASON FOR ADMISSION: 39 years old male with past medical history of diabetes mellitus, recently diagnosed COVID infection ( ) presented to emergency room for evaluation due to blood in the stool. He reported dull, 7 out of 10 , nonradiating abdominal pain. He reported that his abdomen was distended. Patient came from the longterm facility. Patient was recently admitted for COVID infection and subsequently discharged to facility for isolation. Patient denied any fever or chills. No cough . Upon evaluation blood pressure was 138/100, pulse oximetry was 95% on room air, no fevers Laboratory work-up revealed WBC 12.9, stable hemoglobin and hematocrit. Pl atelet count 83. Glucose 504 , anion gap 4, potassium 3.9 ,sodium 134. AST 77, ALT 125. Urinalysis revealed +4glucose , otherwise no evidence of UTI. CT scan of the abdomen and pelvis revealed moderate abdominal and pelvic ascites. Cirrhosis of liver. Varices at the gastrohepatic ligament region consistent with underlying portal venous hypertension; no other acute findings. Chest x-ray revealed interval improvement : decrease in bilateral pneumonia , compared to the chest x-ray from 03/07. Patient admitted for lower GI bleeding, hyperglycemia, ascites due to alcoholic cirrhosis and history of COVID-19. CONSULTANTS: help desk associate Dr. Foster ID specialist Dr. Marie warehouse logistics manager/oncologist Dr. Marquez GI specialist Dr Barahona [facility] COURSE: Patient need to medical surgical floor isolation room. ID specialist followed. Rapid COVID-19 in the emergency room was positive. Pulse oximetry remained stable on room air. Patient completed 5 days of ceftriaxone. Patient was not a candidate of remdesivir according to [facility] Covid task force internal guidelines , since he was not on any supplemental oxygen. Patient undergone on 03/22 paracentesis yielding 1.25 L of ascitic fluid. WBC was only 120 ( 5%). No evidence of spontaneous bacterial peritonitis Blood sugar was managed as per help desk associate recommendation. Patient was on long-acting Levemir , short acting premeal insulin 3 times a day premeal as well as the sliding scale of insulin as needed. Hypoglycemia protocol was on board as needed. Blood sugar improved . Hemoglobin A1c 8.9. Patient will need to closely follow-up with his primary care provider as an outpatient to bring blood sugar under control. Diabetic diet and diabetic teaching provided. Patient was counseled on compliance with medication and diet. Patient noted to have thrombocytopenia, most likely due to cirrhosis of liver. Counts were closely monitored. Prior to discharge platelet count 86. Hemoglobin and hematocrit were closely monitored with goal to keep hemoglobin above 7. LFT were closely monitored , remained mildly elevated, presumed due to COVID as per GI specialist. Outpatient monitoring of LFT was advised. Hepatitis panel was negative . HIV test was nonreactive. Patient was counseled on abstinence from illicit street drugs. Supportive care provided. Patient clinically stabilized and was ready for discharge home. FINAL DIAGNOSES: COVID-19 infection s/p recent PNA Elevated LFT Diabetes mellitus with hyperglycemia Cirrhosis Ascites Status post paracentesis Thrombocytopenia Anemia of chronic disease DISCHARGE MEDICATIONS: See Medication Reconciliation list. DISCHARGE INSTRUCTIONS: Patient was discharged home. Follow-up With a primary care provider in 1 week. I have been assigned to dictate discharge summary for this account. I was not involved in the patient's management. Hilaria Crawford NP Mar 25, 2020 16:52
== END 2020-03-24 16:55 | disposition home or self-care (01) | DRG 280 ==
LOC: EDBD 20:38 → EMR 21:04 → 4E 21:27 → EDBEDREQ 23:00
PROC: 0W9G3ZZ Drainage of Peritoneal Cavity, Percutaneous Approach (ICD-10-PCS; principal; 2020-03-22)
DX: K70.31 Alcoholic cirrhosis of liver with ascites (principal); J12.89 Other viral pneumonia; U07.1 COVID-19; E11.65 Type 2 diabetes mellitus with hyperglycemia; K92.2 Gastrointestinal hemorrhage, unspecified; E46 Unspecified protein-calorie malnutrition; D69.6 Thrombocytopenia, unspecified; D62 Acute posthemorrhagic anemia; D63.8 Anemia in other chronic diseases classified elsewhere; K21.9 Gastro-esophageal reflux disease without esophagitis; K76.6 Portal hypertension; Z79.4 Long term (current) use of insulin
CPT/HCPCS: 36415; 71045; 74177; 76942; 80053; 80202; 81003; 82140; 82962; 83036; 83690; 85007; 85025; 85610; 85730; 86703; 86705; 86709; 86803; 86850; 86900; 86901; 87081; 87340; 89051; 96361; 96374; 99285; J1815; J7030; S5561; U0002